=== PATIENT | male | born 1975 | race Caucasian/White ===

== ENCOUNTER → 2018-07-06 13:47 | Outpatient (CLI) | payer OTHER, MEDICAID, SELFPAY ==
--- NOTE | 2018-07-06 13:49 | DI.US.S_ITS ---
PROCEDURE: US ABDOMEN COMPLETE INDICATIONS: PAIN TECHNIQUE: Real-time scanning was performed of the abdominal and retroperitoneal organs, with image documentation. COMPARISON: [facility], US, ABDOMEN COMPLETE, 05/19/2007, 7:28. [facility], CT, ABDOMEN/PELVIS WITH CONTRAST, 05/19/2007, 10:44. FINDINGS: Liver: Liver is normal in size and homogeneous in echotexture. Gallbladder: There is a 1.6 mm nodule in the anterior wall of the gallbladder, probably a polyp. There are mobile echogenic foci in the dependent gallbladder lumen, probably gallbladder sludge or tiny stones. Biliary ducts: Intrahepatic bile ducts are non-dilated. Extrahepatic bile duct caliber measures 7.7 mm. Normal is 6-7 mm or less in diameter, or 10 mm or less post-cholecystectomy. Pancreas: Visualized portions of the pancreas are sonographically normal. Spleen: Spleen is normal in size and homogeneous in echotexture. A 1.0 x 1.3 x 1.4 cm splenule is noted. Kidneys: Kidneys are normal in size and echotexture. Right kidney measures 11.0 cm long; left kidney measures 10.6 cm long. No hydronephrosis or nephrolithiasis. No solid masses. Aorta: Visualized aorta is normal in caliber at less than 3 cm. Iliacs: Proximal common iliac arteries are normal in caliber at less than 2.5 cm. IVC: Intrahepatic inferior vena cava is patent. Miscellaneous: No free abdominal fluid. IMPRESSION: 1. A 1.6 mm polyp in the anterior wall of the gallbladder. 2. ? small stones or sludge in the gallbladder lumen. 3. A 1.0 x 1.3 x 1.0 cm splenule. Dictated by: Jef Mack M.D. on 07/06/2018 at 14:58 Approved by: Jef Mack M.D. on 07/06/2018 at 15:31
== END ==
PROVIDERS: Family Provider Family Medicine; PCP Family Medicine; Visit Provider Family Medicine
DX: R10.9 Unspecified abdominal pain (principal); K82.4 Cholesterolosis of gallbladder; D73.89 Other diseases of spleen
CPT/HCPCS: 76700

== ENCOUNTER 2018-08-03 10:40 | Day surgery (SDC) | payer OTHER, MEDICAID, SELFPAY ==
[2018-08-02 09:19] VITALS: BMI 23.7
[2018-08-03] VITALS (12 sets, daily range): BP systolic 115–150; BP diastolic 76–99; PULSE 52–69; RESP 7–28; TEMP 36.1–36.9; O2SAT 93–99; BMI 23.7
--- NOTE | 2018-08-03 | PATH_ITS ---
[facility] Accession Number: [id number] . 01 Material submitted: . GALLBLADDER . 02 Diagnosis: Gallbladder, Laparoscopic Cholecystectomy: Mild chronic cholecystitis and cholesterolosis. MRV/08/05/2018 . 02 Electronically signed: . Eloisa Elam MD, Pathologist NPI- [id number] . 01 Gross description: . Received in formalin, labeled gallbladder, is an intact gallbladder (length-6.7 cm, diameter-3.2 cm) with diaz-green smooth shiny serosa and a patent cystic duct. No lymph nodes are identified. The lumen contains dark green viscous bile. No calculi are present. The mucosa is dark green and velvety. The wall is up to 0.1 cm thick. No nodules, masses or lesions are identified. Section code: (A1) cystic duct resection margin and two serial sections from the body; (A2) two longitudinal sections from the fundus. ([id number]) /MRV . 02 Pathologist provided ICD-10: K81.1 . 02 CPT . 902334 Performed at: 01 [facility] [address] [facility], [place], [place] [id number] MD Emir Stephens MD Phone: [phone] Performed at: 02 [facility] [address] [place], [place] [id number] MD Dylan Bravo MD Phone: [phone]
[2018-08-03] MEDS: LACTATED RINGERS 1,000 ML 42 ML IV ×2 (11:54→15:32)
--- NOTE | 2018-08-03 12:51 | PM.PREOP ---
Pre-operative Note Interval Note Pre-op Check: Yes History & Physical Reviewed by Physician and Yes Exam Performed Changes: No H&P completed within 30 days and has changed as indicated here:: Patient seen and examined in preoperative area. History and physical examination documented on the chart from last week has not changed. Proceed with cholecystectomy today as planned.
[2018-08-03] MEDS: CEFAZOLIN 2 GM/100 ML FROZ.PIGGY IV (13:16)
[2018-08-03] MEDS: ACETAMINOPHEN IV 1,000 MG/100 ML VIAL 400 MG IV (13:50)
--- NOTE | 2018-08-03 13:53 | SUR.OPER ---
Supine on padded OR bed, head on pillow, right arm padded and tucked at side, left arm on armboard at less than 90 degrees,legs uncrossed, safety belt at thigh, tape over blanket over lower legs .
[2018-08-03] MEDS: BUPIVACAINE 0.5% (PF) VIAL 30 ML INJ (14:08)
[2018-08-03] MEDS: LIDOCAINE 1% W/EPI INJ 20 ML INJ (14:09)
--- NOTE | 2018-08-03 14:59 | PM.OP.1 ---
Operative Date/Time/Diagnoses Date of procedure: 08/03/18 Time of procedure: 14:59 Pre-op diagnosis: Biliary colic secondary to cholelithiasis Post-op diagnosis: same Procedure & Clinicians Procedure: Laparoscopic cholecystectomy Same procedure as scheduled: Yes Indications: 42-year-old male who presented with intractable epigastric and right upper quadrant abdominal pain radiating to the back. Examination and evaluation were consistent with biliary colic secondary to gallstones. He was recommended to undergo laparoscopic cholecystectomy. Surgeon: Mio Austin Click Yes if Unassisted: Yes Anesthesia Type: General Operative Notes Findings: 1. Chronically inflamed mildly thickened gallbladder 2. Grossly normal liver, stomach, colon, small bowel, and omentum within the context of limited laparoscopic visualization 3. No free fluid in the abdomen 4. Dense adhesions between the omentum, duodenum, and gallbladder consistent with prior abdominal operation 5. Adhesions in the right lower quadrant consistent with prior appendectomy 6. Otherwise normal peritoneal surfaces Closure Type: primary Specimen(s): other (Gallbladder) Implants & Drains: None Estimated Blood Loss (mL): 50 Blood products transfused: none Procedure in detail: After obtaining informed consent the patient was brought to the operating room placed supine on the table. After satisfactory induction of anesthesia the abdomen was prepped and draped in usual sterile fashion following insertion of a Hassan catheter into the urinary bladder. Hassan catheter was placed given the patient's significant right upper quadrant abdominal scar from prior surgery with distinct possibility of having to convert to open cholecystectomy and thereby prolonging operative time. SCOAP time out was performed per standard protocol. A 1: 1 mixture 1% lidocaine with 1 :100,000 epinephrine and 0.5% plain Marcaine was injected in the skin and subcutaneous tissue at the superior aspect of the umbilicus for postoperative analgesia. Vertical midline incision was created at superior aspect of umbilicus with 11 scalpel blade. Blunt dissection revealed the rectus fascia which was divided in the midline with 11 scalpel blade. Edges of the fascia were secured with Harinder clamps and elevated into the operative field. Fascia was secured with 2 individual interrupted 0 Vicryl sutures superiorly and inferiorly. Underlying peritoneum was secured between Lila clamps and entered under direct visualization. Blunt 12 mm Luke trocar was inserted and a carbon dioxide pneumoperitoneum was created. Abdomen was visually explored with a 30 degree 5 mm laparoscope. Findings are as above. Patient was placed in reverse Trendelenburg position. 5 mm epigastric trocar was inserted under direct laparoscopic visualization to the right of the falciform ligament after achieving local anesthesia and creating a skin incision with 11 scalpel blade. In a similar fashion to individual 5 mm trocars were placed in the right lateral abdomen. The fundus of the gallbladder was visible and secured with a ratcheted grasper then retracted medially and superiorly over the liver edge. Adhesions were found along the entire length of the gallbladder at this point involving the omentum and duodenum. Meticulous blunt dissection was employed to remove the adhesions. Monopolar cautery was used judiciously on several adhesions to both divide them and achieve hemostasis. Great care was taken to avoid injury to the duodenum and adjacent structures. Infundibulum of the gallbladder was eventually identified and secured with a 2nd grasper. Infundibulum was retracted inferiorly and laterally. Meticulous dissection in the triangle of Calot was then performed with the Maryland dissector eventually encircling the cystic duct and cystic artery. The junction of the duct and artery with the gallbladder was clearly identified. Critical view of the liver bed through the avascular plane between the cystic duct and cystic artery was identified. Three clips were placed proximally on the cystic duct and 1 at the junction with the gallbladder. The duct was divided with the scissors. In a similar fashion the cystic artery was controlled and divided. Monopolar cautery was used to remove the gallbladder from the hepatic bed. Specimen was placed in an endo-pouch and retrieved through the umbilical incision then sent for permanent section. Liver bed and right upper quadrant were irrigated with copious amounts of sterile saline solution and hemostasis was verified. There was no evidence of any hemorrhage or bile leak from the gallbladder fossa. The previously placed clips were again meticulously visualized and noted to be in good position without evidence of hemorrhage or bile leak. Patient was returned to supine position and right upper quadrant was again irrigated. Irrigant was suctioned from the abdomen and noted to be clear. Once hemostasis was verified instruments and trocars were removed under direct visualization. Hemostasis was again verified and carbon dioxide was evacuated. Fascia at the umbilical site was closed with the 2 previously placed 0 Vicryl suture. Skin at all 4 incisions was then closed in a running subcuticular fashion with 4 0 Monocryl suture. Dermal adhesive was applied to the skin. Hassan catheter was removed at the conclusion of the case. Anesthesia was reversed and the patient extubated in the operating room. He was taken recovery in stable condition. Complications: none Condition: stable Disposition: PACU Plan for aftercare: 1. Discharge to home 2. Follow up in surgery Clinic in 2 weeks
--- NOTE | 2018-08-03 15:09 | SUR.PHASEI ---
Lt anterior lobe clear, exp wheeze in rt anterior lobe, sounds coarse after cough.
--- NOTE | 2018-08-03 15:10 | SUR.PHASEI ---
Dr Austin notified bp 142/92, other vitals wnl, Pt denied pain, no new orders-continue to monitor per MD>
[2018-08-03] MEDS: HYDROMORPHONE 2 MG INJ 1 MG IV (15:21)
[2018-08-03] MEDS: LORazepam 2 MG/ML SYRINGE 0.25 MG IV (15:23)
--- NOTE | 2018-08-03 15:26 | SUR.PHASEI ---
PT RR increased to 40s, Pt began trembling. Reported abd pain. Dr Lynn present, medication ordered and given
[2018-08-03] MEDS: HYDROMORPHONE 2 MG INJ 0.5 MG IV (15:31)
[2018-08-03] MEDS: ONDANSETRON 4 MG/2 ML INJ IV (15:55)
--- NOTE | 2018-08-03 15:58 | SUR.PHASEII ---
Pt c/o mild nausea, crackers and zofran provided. Pt reported nausea improved. Report to ESTEFANI Mccain.
--- NOTE | 2018-08-03 16:11 | SUR.PHASEII ---
incisions c/d/i. friend to take prescriptions to pharmacy, vss, nausea subsided
== END 2018-08-03 16:31 | disposition home or self-care (01) ==
PROVIDERS: PCP Family Medicine; Visit Provider Surgery
PROC: 0FT44ZZ Resection of Gallbladder, Percutaneous Endoscopic Approach (ICD-10-PCS; CPT 47562; principal; 2018-08-03 12:45)
DX: K81.1 Chronic cholecystitis (principal); K82.8 Other specified diseases of gallbladder; K66.0 Peritoneal adhesions (postprocedural) (postinfection)
CPT/HCPCS: 47562; 88304; J0131; J0690; J1170; J2060; J2250; J2405; J2704; J3010

== ENCOUNTER 2018-08-11 23:56 | Inpatient (IN) | payer OTHER, MEDICAID, SELFPAY ==
[2018-08-12] VITALS (7 sets, daily range): BP systolic 121–157; BP diastolic 73–94; PULSE 65–73; RESP 15–28; TEMP 36.5–37.2; O2SAT 94–97; BMI 23.3
--- NOTE | 2018-08-12 | DI.NM.S_ITS ---
PROCEDURE: NM HIDA NO EJECTION FRACTION RADIOPHARMACEUTICAL: 4.5 mCi Tc-99m mebrofenin IV. INDICATIONS: hyperbilirubinemia, pain after cholecystectomy. R/O leak. TECHNIQUE: Following intravenous administration of Tc-99m mebrofenin, sequential anterior abdominal images were obtained through at least 60 minutes. COMPARISON: [facility], CT, CT ABDOMEN PELVIS WITH CONTRAST, 08/11/2018, 18:18. FINDINGS: There is normal tracer uptake and excretion by the liver. There is normal visualization of intrahepatic ducts, and the common bile duct, but there is sequestration of contrast at the gallbladder fossa in a fashion that indicates likelihood of contained extravasation of bile at that site. There is normal tracer excretion into duodenum and beyond into the small bowel more inferiorly. IMPRESSION: The prior CT from 08/11/18 had shown a small amount of perihepatic and subhepatic free fluid, and postsurgical clips at the gallbladder fossa margin. Fluid also was present within the gallbladder fossa itself, and no abscess formation was identified. The current study shows evidence of the contained bile leak, anatomically in the expected position of the gallbladder fossa. A communication from the bile duct area to the immediate adjacent gallbladder fossa area is not identified and this may indicate presence of an accessory bile duct leaking preferentially into the gallbladder fossa rather than a cystic duct stump leak. Please note that this is a resolution of anatomy that is relatively low utilizing nuclear medicine technique. Findings discussed with Dr. Oro. Dictated by: Manuel Reynolds M.D. on 08/13/2018 at 13:06 Approved by: Manuel Reynolds M.D. on 08/13/2018 at 13:11
[2018-08-12] MEDS: HYDROMORPHONE 2 MG INJ 1 MG IV ×2 (00:39→05:31)
[2018-08-12] MEDS: ONDANSETRON 4 MG/2 ML INJ IV ×3 (00:44→19:44)
[2018-08-12] MEDS: DEXTROSE 5%-0.45NS W/KCL 20MEQ 1,000 ML 75 MEQ IV (00:53)
[2018-08-12] MEDS: AMPICILLIN/SULBACTAM 3 GM 3 GM in SODIUM CHLORIDE 0.9% 100 ML IV ×5 (00:55→23:59)
--- NOTE | 2018-08-12 05:12 | PC.NURSE ---
Addendum entered by Jerri Crystal R.N. 08/12/18 05:54: 0545: pt reported pain 07/21, gave 1mg IV dilaudid for breakthrough pain. pt drinking plenty of water, urine dark brian. Original Note: 6525: pt is a direct admit from [facility], arrived via stretcher, A&Ox3, LS: clear, 94%RA, BTX4, lap sites x 4 LICENSED DIRECT ENTRY MIDWIFE, PP+, CMS+. pt was shaking due to pain and having some nausea, gave dilaudid 1mg and Zofran. call light in reach. oriented pt to room.
[2018-08-12] MEDS: HYDROMORPHONE PCA 6 MG/30 ML PCA.VIAL IV ×3 (06:49→21:44)
--- NOTE | 2018-08-12 08:18 | PM.HP.1 ---
History of Present Illness Date Patient Seen: 08/12/18 Time Patient Seen: 08:18 Chief complaint: trans from [facility] Narrative: 42-year-old male well known to me from recent evaluation and subsequent laparoscopic cholecystectomy 9 days ago electively who presents to an [facility] emergency department late last evening with complaints of progressive abdominal pain since noon yesterday. He states that after surgery he was feeling relatively well and tolerating a regular diet without any issues. He had return of normal bowel bladder function. Approximately 2 days after surgery he began to have normal regular bowel movements. He has moved his bowels recently including yesterday although he states that it was somewhat firm and hard. No melena, hematochezia, bright red blood per rectum. No fever or chills subjectively but he does feel as if he is having occasional sweats. He is passing flatus. Denies any jaundice, dark brown urine, or acholic stools. After lunch yesterday he began to have progressive abdominal pain diffusely but more toward the right lateral abdomen. Pain does not radiate to the back or the chest. Denies any productive cough or shortness of breath. No chest pain. However, he feels that he cannot take a full deep inspiration because of the discomfort. Because of the pain he began to have some nausea and subsequently vomited. He has not eaten anything significant since noon yesterday. He is not nauseated currently. However he continues to complain of the diffuse abdominal pain. He feels somewhat subjectively distended as well. Again, he is having no dysuria or hematuria. Patient History Medical History ADD (attention deficit disorder) (Acute) 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) Foot pain (Chronic 2013) Hemorrhoids (Chronic 2005) Chicken pox (Resolved 1982) Open fracture of right foot (Resolved 2013) Wound of right foot (Resolved 2013) Surgical History S/P laparoscopic cholecystectomy (Acute) History of laparotomy (Acute) Hx of appendectomy (Acute) Hx of hemorrhoidectomy (Acute) Anesthesia (Resolved) Status post appendectomy (Resolved 1989) Status post hemorrhoidectomy (Resolved 2005) Status post right foot surgery (Resolved 11/2013) Status post right foot surgery (Resolved 01/2014) Family & Social History Social History: household members significant other Prior Living Arrangements House Safety & Behavioral: Feels Safe in Current Yes Environment Been Physically Hurt or No Threatened By a Person Suicidal Ideation Description None Suicide Plan Description No Plan Tobacco & Substance use: Tobacco type smokeless tobacco Smoking Status Former smoker alcohol intake current Substance Use Type does not use Meds Home Medications Medication Instructions Recorded Confirmed Type oxycodone 10 mg tablet See Label Instructions PO .COMPLEX 06/28/18 08/12/18 Rx #180 tab dextroamphetamine-amphetamine ER 20 mg PO BID #60 cap 07/14/18 08/12/18 Rx 20 mg 24hr capsule,extend release docusate sodium [Colace] 100 mg PO BID #14 cap 08/03/18 08/12/18 Rx hydromorphone 2 mg PO Q4H PRN #30 tab 08/03/18 08/12/18 Rx ondansetron HCl [Zofran] 4 mg PO TID PRN 5 Days #20 tab 08/03/18 08/12/18 Rx sennosides [Senokot] 8.6 mg PO BEDTIME #10 tab 08/03/18 08/12/18 Rx Allergies Allergy/AdvReac Type Severity Reaction Status Date / Time No Known Drug Allergies Allergy Unverified 06/28/18 09:43 Review of Systems Review of Systems All systems reviewed & are unremarkable except as noted in HPI and below Exam Vital Signs (past 8 hours): - 08/12/18 00:35 08/12/18 02:03 08/12/18 05:49 Temperature 98.9 F 98.7 F Pulse Rate 70 66 Respiratory Rate 28 H 20 20 Blood Pressure 148/87 H 148/94 H Pulse Oximetry 94 97 08/12/18 08:00 Temperature 98.4 F Pulse Rate 67 Respiratory Rate 15 Blood Pressure 157/94 H Pulse Oximetry 95 Narrative Exam Narrative: Well-nourished well-developed male lying in bed in no acute distress. He appears mildly uncomfortable but he certainly is not writhing in pain. He is not tachypneic. Alert oriented x3 Sclera nonicteric Regular rate and rhythm. He has had no tachycardia since admission. Furthermore, he has had no documented fevers with a maximal temperature of 98.9?. Blood pressure is normal other than some mild diastolic hypertension likely related to pain. No crackles or wheezes Abdomen is soft and essentially nondistended. He is diffusely tender to palpation but certainly has no guarding or rebound. He is perhaps slightly more tender in the right lateral abdomen. His tenderness is difficult to ascertain because of his chronic pain syndrome for which he takes a significant amount of oxycodone on a daily basis. He informs me that he had been on his usual regimen of oxycodone as per my instructions and taking only 1 additional Dilaudid tablet every 24 hr for his surgical pain until the onset of his symptoms at noon yesterday. Incisions are all clean, dry, and intact without evidence of hernia, erythema, ecchymosis, hematoma, or seroma. Extremities show no clubbing or cyanosis Objective Labs Labs: Records from the [facility] emergency department are somewhat erratic and there is no note from the attending emergency department physician. I do not have all of the laboratory results but his liver function tests and lactate level or all completely normal. Total bilirubin is also unremarkable. I cannot find a lipase. Cannot find a urinalysis. CBC is not within the provided records, but I have been informed verbally that the white blood cell count was approximately [id number] scan of the abdomen and pelvis was done in the [facility] emergency department and I have personally reviewed those films with the staff radiologist today. There is evidence of atelectasis bilaterally and perhaps some infiltrate in the right lower lobe. No free air in the abdomen. Small amount of perihepatic fluid which would be consistent with postoperative changes. Surgical clips were in place. No extrahepatic or intrahepatic biliary dilatation. No free fluid elsewhere in the abdomen. No dilated loops of bowel. No significant bowel wall thickening although there are some inflammatory changes focally at the hepatic flexure of the colon which is likely reactive in nature adjacent to the surgical site. No intrahepatic lesions or abscesses. No lymphadenopathy. Pancreas is normal on CT. Assessment & Plan Plan: Assessment/Plan Narrative: 42-year-old male 9 days status post otherwise uncomplicated laparoscopic cholecystectomy with acute onset of pain and vomiting yesterday. The only potential etiology at this point would be right lower lobe pneumonia although he has had no productive cough. However he does have leukocytosis per report so we will maintain him on intravenous antibiotics in the form of Unasyn. Repeat his CBC, complete metabolic panel, lipase, and procalcitonin today. He may have a regular diet from my perspective because there appears to be absolutely no issues intra-abdominally and certainly no evidence of any postoperative complications such as bile duct leak, bile duct injury, hemorrhage, subhepatic abscess, pancreatitis, or bowel injury. We will start a proton pump inhibitor and assist bowel function since he appears to be mildly constipated since surgery. 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 Out of bed as tolerated. I believe his overall clinical picture somewhat complicated by his chronic pain syndrome as well. Treat his nausea as needed with Zofran and Reglan. I discussed all the above with the patient in detail. Orders were written.
--- NOTE | 2018-08-12 08:28 | P.HP_ITS ---
History of Present Illness Date Patient Seen: 08/12/18 Time Patient Seen: 08:18 Chief complaint: trans from [facility] Narrative: 42-year-old male well known to me from recent evaluation and subsequent laparoscopic cholecystectomy 9 days ago electively who presents to an [facility] emergency department late last evening with complaints of progressive abdominal pain since noon yesterday. He states that after surgery he was feeling relatively well and tolerating a regular diet without any issues. He had return of normal bowel bladder function. Approximately 2 days after surgery he began to have normal regular bowel movements. He has moved his bowels recently including yesterday although he states that it was somewhat firm and hard. No melena, hematochezia, bright red blood per rectum. No fever or chills subjectively but he does feel as if he is having occasional sweats. He is passing flatus. Denies any jaundice, dark brown urine, or acholic stools. After lunch yesterday he began to have progressive abdominal pain diffusely but more toward the right lateral abdomen. Pain does not radiate to the back or the chest. Denies any productive cough or shortness of breath. No chest pain. However, he feels that he cannot take a full deep inspiration because of the discomfort. Because of the pain he began to have some nausea and subsequently vomited. He has not eaten anything significant since noon yesterday. He is not nauseated currently. However he continues to complain of the diffuse abdominal pain. He feels somewhat subjectively distended as well. Again, he is having no dysuria or hematuria. Patient History Medical History ADD (attention deficit disorder) (Acute) 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) Foot pain (Chronic 2013) Hemorrhoids (Chronic 2005) Chicken pox (Resolved 1982) Open fracture of right foot (Resolved 2013) Wound of right foot (Resolved 2013) Surgical History S/P laparoscopic cholecystectomy (Acute) History of laparotomy (Acute) Hx of appendectomy (Acute) Hx of hemorrhoidectomy (Acute) Anesthesia (Resolved) Status post appendectomy (Resolved 1989) Status post hemorrhoidectomy (Resolved 2005) Status post right foot surgery (Resolved 11/2013) Status post right foot surgery (Resolved 01/2014) Family & Social History Social History: household members significant other Prior Living Arrangements House Safety & Behavioral: Feels Safe in Current Yes Environment Been Physically Hurt or No Threatened By a Person Suicidal Ideation Description None Suicide Plan Description No Plan Tobacco & Substance use: Tobacco type smokeless tobacco Smoking Status Former smoker alcohol intake current Substance Use Type does not use Meds Home Medications Medication Instructions Recorded Confirmed Type oxycodone 10 mg tablet See Label Instructions PO .COMPLEX 06/28/18 08/12/18 Rx #180 tab dextroamphetamine-amphetamine ER 20 mg PO BID #60 cap 07/14/18 08/12/18 Rx 20 mg 24hr capsule,extend release docusate sodium [Colace] 100 mg PO BID #14 cap 08/03/18 08/12/18 Rx hydromorphone 2 mg PO Q4H PRN #30 tab 08/03/18 08/12/18 Rx ondansetron HCl [Zofran] 4 mg PO TID PRN 5 Days #20 tab 08/03/18 08/12/18 Rx sennosides [Senokot] 8.6 mg PO BEDTIME #10 tab 08/03/18 08/12/18 Rx Allergies Allergy/AdvReac Type Severity Reaction Status Date / Time No Known Drug Allergies Allergy Unverified 06/28/18 09:43 Review of Systems Review of Systems All systems reviewed & are unremarkable except as noted in HPI and below Exam Vital Signs (past 8 hours): - 08/12/18 00:35 08/12/18 02:03 08/12/18 05:49 Temperature 98.9 F 98.7 F Pulse Rate 70 66 Respiratory Rate 28 H 20 20 Blood Pressure 148/87 H 148/94 H Pulse Oximetry 94 97 08/12/18 08:00 Temperature 98.4 F Pulse Rate 67 Respiratory Rate 15 Blood Pressure 157/94 H Pulse Oximetry 95 Narrative Exam Narrative: Well-nourished well-developed male lying in bed in no acute distress. He appears mildly uncomfortable but he certainly is not writhing in pain. He is not tachypneic. Alert oriented x3 Sclera nonicteric Regular rate and rhythm. He has had no tachycardia since admission. Furthermore, he has had no documented fevers with a maximal temperature of 98.9? . Blood pressure is normal other than some mild diastolic hypertension likely related to pain. No crackles or wheezes Abdomen is soft and essentially nondistended. He is diffusely tender to palpation but certainly has no guarding or rebound. He is perhaps slightly more tender in the right lateral abdomen. His tenderness is difficult to ascertain because of his chronic pain syndrome for which he takes a significant amount of oxycodone on a daily basis. He informs me that he had been on his usual regimen of oxycodone as per my instructions and taking only 1 additional Dilaudid tablet every 24 hr for his surgical pain until the onset of his symptoms at noon yesterday. Incisions are all clean, dry, and intact without evidence of hernia, erythema, ecchymosis, hematoma, or seroma. Extremities show no clubbing or cyanosis Objective Labs Labs: Records from the [facility] emergency department are somewhat erratic and there is no note from the attending emergency department physician. I do not have all of the laboratory results but his liver function tests and lactate level or all completely normal. Total bilirubin is also unremarkable. I cannot find a lipase. Cannot find a urinalysis. CBC is not within the provided records, but I have been informed verbally that the white blood cell count was approximately [id number] scan of the abdomen and pelvis was done in the [facility] emergency department and I have personally reviewed those films with the staff radiologist today. There is evidence of atelectasis bilaterally and perhaps some infiltrate in the right lower lobe. No free air in the abdomen. Small amount of perihepatic fluid which would be consistent with postoperative changes. Surgical clips were in place. No extrahepatic or intrahepatic biliary dilatation. No free fluid elsewhere in the abdomen. No dilated loops of bowel. No significant bowel wall thickening although there are some inflammatory changes focally at the hepatic flexure of the colon which is likely reactive in nature adjacent to the surgical site. No intrahepatic lesions or abscesses. No lymphadenopathy. Pancreas is normal on CT. Assessment & Plan Plan: Assessment/Plan Narrative: 42-year-old male 9 days status post otherwise uncomplicated laparoscopic cholecystectomy with acute onset of pain and vomiting yesterday. The only potential etiology at this point would be right lower lobe pneumonia although he has had no productive cough. However he does have leukocytosis per report so we will maintain him on intravenous antibiotics in the form of Unasyn. Repeat his CBC, complete metabolic panel, lipase, and procalcitonin today. He may have a regular diet from my perspective because there appears to be absolutely no issues intra-abdominally and certainly no evidence of any postoperative complications such as bile duct leak, bile duct injury, hemorrhage , subhepatic abscess, pancreatitis, or bowel injury. We will start a proton pump inhibitor and assist bowel function since he appears to be mildly constipated since surgery. 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 Out of bed as tolerated. I believe his overall clinical picture somewhat complicated by his chronic pain syndrome as well. Treat his nausea as needed with Zofran and Reglan. I discussed all the above with the patient in detail. Orders were written.
--- NOTE | 2018-08-12 10:11 | CM.DANOTE ---
DCP: Case received, EMR reviewed and met with patient. Introduced self and role. DCP template completed with information currently available. Patient is a 42 year old male who admitted yesterday evening to the care of the hospitalist team. PCP: Dr. Santos. [facility]: [facility] [employer]. Patient was admitted here from [facility]. Had been at this hospital recently, and Dr. Austin had performed gall bladder surgery. Patient was developing increased pain, and had run out of his narcotics and was brought here, since surgery was done here. Patient alert and oriented, significant other at bedside. Patient is independent, drives. Lives in [facility]. P: DCP to continue to follow. Patient should be able to return home when stable, and pain is under control. Luiza Franco RN/Boardinghouse Keeper
[2018-08-12] MEDS: MAGNESIUM HYDROXIDE 30 ML UDC PO (10:30)
[2018-08-12] MEDS: DOCUSATE 100 MG CAPSULE PO (10:30)
[2018-08-12] MEDS: LORazepam 1 MG TABLET 2 MG PO ×2 (10:30→19:49)
[2018-08-12] MEDS: PANTOPRAZOLE 40 MG TABLET PO (10:32)
[2018-08-12 14:28] LABS: Add Manual Diff / Slide Review NO; Basophils Percent Auto 1.4 % (0-2); Eosinophils Percent Auto 0.1 % (2-4); Hematocrit 43.6 % (41-53); Hemoglobin 14.6 g/dL (13.5-17.5); Lymphocytes Percent Auto 13.4 % (25-40); Mean Corpuscular HGB Conc 33.4 % (30-36); Mean Corpuscular Hemoglobin 29.5 PG (26-34); Mean Corpuscular Volume 88.2 fL (80-100); Monocytes Percent Auto 10.2 % (3-14); Neutrophils Absolute Auto 10200 /uL (3000-5900); Neutrophils Percent Auto 74.9 % (50-75); Platelet Count 258 X10^3/uL (150-400); Red Blood Cell Count 4.94 X10^6/uL (4.5-5.9); Red Cell Distribution Width 14.6 % (11.6-14.8); White Blood Cell Count 13.6 X10^3/uL (4.5-11.0)
[2018-08-12 14:44] LABS: Alanine Aminotransferase 78 IU/L (21-72); Albumin 4.3 g/dL (3.5-5.0); Albumin Globulin Ratio 1.5 (1.0-2.8); Alkaline Phosphatase 86 U/L (38-126); Aspartate Aminotransferase 24 IU/L (17-59); Bilirubin Total 2.1 mg/dL (0.2-1.3); Blood Urea Nitrogen 14 mg/dL (9-20); Carbon Dioxide 27 mmol/L (22-32); Chloride 101 mmol/L (98-107); Estimated Glomerular Filt Rate > 60.0 mL/min (>60); Globulin 2.9 g/dL (1.7-4.1); Glucose 112 mg/dL (70-100); HEMOLYSIS < 15 (0-50); Lipase 21 U/L (23-300); Potassium 4.2 mmol/L (3.4-5.1); Sodium 139 mmol/L (137-145); Total Protein 7.2 g/dL (6.3-8.2)
[2018-08-12 15:06] LABS: Procalcitonin 0.75 ng/mL (<0.5)
[2018-08-13] MEDS: METOCLOPRAMIDE 10 MG/2 ML INJ IV ×2 (00:04→11:23)
[2018-08-13 00:28] VITALS: BP 122/75; PULSE 73; RESP 16; TEMP 36.9; O2SAT 97
[2018-08-13] MEDS: HYDROMORPHONE PCA 6 MG/30 ML PCA.VIAL IV ×2 (05:28→13:03)
[2018-08-13] MEDS: PANTOPRAZOLE 40 MG TABLET PO (05:28)
[2018-08-13 05:56] VITALS: BP 164/82; PULSE 77; RESP 16; TEMP 36.7; O2SAT 96
[2018-08-13] MEDS: AMPICILLIN/SULBACTAM 3 GM 3 GM in SODIUM CHLORIDE 0.9% 100 ML IV ×2 (06:06→13:02)
[2018-08-13 06:07] LABS: Add Manual Diff / Slide Review NO; Basophils Percent Auto 0.3 % (0-2); Eosinophils Percent Auto 1.5 % (2-4); Lymphocytes Percent Auto 18.7 % (25-40); Mean Corpuscular HGB Conc 33.5 % (30-36); Mean Corpuscular Hemoglobin 29.7 PG (26-34); Mean Corpuscular Volume 88.9 fL (80-100); Monocytes Percent Auto 13.1 % (3-14); Neutrophils Absolute Auto 6600 /uL (3000-5900); Neutrophils Percent Auto 66.4 % (50-75); Platelet Count 270 X10^3/uL (150-400); Red Blood Cell Count 4.72 X10^6/uL (4.5-5.9); Red Cell Distribution Width 14.7 % (11.6-14.8)
[2018-08-13 06:17] LABS: Alanine Aminotransferase 300 IU/L (21-72); Albumin 4.1 g/dL (3.5-5.0); Albumin Globulin Ratio 1.4 (1.0-2.8); Alkaline Phosphatase 142 U/L (38-126); Aspartate Aminotransferase 273 IU/L (17-59); BUN Creatinine Ratio 13.3 (6-22); Bilirubin Total 3.4 mg/dL (0.2-1.3); Blood Urea Nitrogen 12 mg/dL (9-20); Calcium 8.9 mg/dL (8.4-10.2); Carbon Dioxide 30 mmol/L (22-32); Chloride 99 mmol/L (98-107); Estimated Glomerular Filt Rate > 60.0 mL/min (>60); Globulin 2.9 g/dL (1.7-4.1); Glucose 113 mg/dL (70-100); HEMOLYSIS < 15 (0-50); Potassium 4.6 mmol/L (3.4-5.1); Sodium 140 mmol/L (137-145)
--- NOTE | 2018-08-13 06:18 | PC.NURSE ---
Pt A&Ox4. 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 pt urinated 650cc-clear dark brian/orange color.
[2018-08-13 07:59] VITALS: BP 122/87; PULSE 70; RESP 18; TEMP 36.9; O2SAT 97
[2018-08-13] MEDS: LORazepam 1 MG TABLET 2 MG PO (08:49)
[2018-08-13] MEDS: DOCUSATE 100 MG CAPSULE PO (08:49)
[2018-08-13] MEDS: ONDANSETRON 4 MG/2 ML INJ IV ×3 (09:59→16:59)
[2018-08-13] MEDS: HYDROMORPHONE 2 MG INJ 1 MG IV (09:59)
[2018-08-13] MEDS: DEXTROSE 5%-0.45NS W/KCL 20MEQ 1,000 ML 75 MEQ IV (10:12)
[2018-08-13] MEDS: HYDROMORPHONE 1 MG INJ IV ×2 (11:59→16:56)
--- NOTE | 2018-08-13 11:59 | PC.NURSE ---
Addendum entered by Shira Davila R.N. 08/13/18 14:32: Pt last voided at 0600, denies need to void at this time, bladder scanned for 382cc. Original Note: Addendum entered by Shira Davila R.N. 08/13/18 13:10: Pt back from hida scan, still c/o nausea too early for antiemetic, call to Dr Preethi phelps. Orders received. Original Note: Pt taken down for HIda scan, received call from [facility], patient was having increase in pain. Given 1mg dilaudid IVP.
[2018-08-13 14:20] VITALS: BP 148/90; PULSE 69; RESP 18; TEMP 36.9; O2SAT 94
--- NOTE | 2018-08-13 14:23 | PM.PN.1 ---
Subjective Date Patient Seen: 08/13/18 Time Patient Seen: 14:24 Interval history: Noble is in significant pain this afternoon. HIDA scan has already been reviewed and shows a bile leak most likely from a duct of Luschka but it is difficult to tell with certainty. I have already discussed all of this with both the patient and his significant other. I spoke with at [facility] and he reports that there will not be ERCP services available at [facility] until Thursday. I called [facility] in [facility] and spoke with Dr.Natasha García. She kindly reviewed the films with the radiologist and has agreed to treat the patient if we can find an accepting physician at the hospital. The patient and his significant other both report that he is willing to be transferred there as soon as arrangements can be made. He says his pain is reasonably well controlled since I have increased his Dilaudid to 1 milligram/hour and increased his Zofran to Q 4 hr interval. He is encouraged that the problem looks to be treatable. Exam Vital Signs (past 8 hours): - 08/13/18 07:59 08/13/18 14:20 Temperature 98.5 F 98.4 F Pulse Rate 70 69 Respiratory Rate 18 18 Blood Pressure 122/87 148/90 H Pulse Oximetry 97 94 Oxygen Flow Rate 0 Narrative Exam Narrative: Lungs: Clear bilaterally Heart: Regular rate and rhythm Abdomen is soft but diffusely tender to palpation. Few bowel sounds. Voluntary guarding and rebound. Extremities no edema Objective Labs Result Diagrams: 08/13/18 05:29 08/13/18 05:29 Labs: Laboratory Results - last 24 hr 08/12/18 08/12/18 08/12/18 14:12 14:12 14:12 WBC 13.6 H RBC 4.94 Hgb 14.6 Hct 43.6 MCV 88.2 MCH 29.5 MCHC 33.4 RDW 14.6 Plt Count 258 Neut % (Auto) 74.9 Lymph % (Auto) 13.4 L [place] % (Auto) 10.2 Eos % (Auto) 0.1 L Baso % (Auto) 1.4 Neut # (Auto) 87224 H Sodium 139 Potassium 4.2 Chloride 101 Carbon Dioxide 27 BUN 14 Creatinine 0.70 Estimated GFR > 60.0 BUN/Creatinine Ratio 20.0 Glucose 112 H Calcium 9.0 Total Bilirubin 2.1 H AST 24 ALT 78 H Alkaline Phosphatase 86 Total Protein 7.2 Albumin 4.3 Globulin 2.9 Albumin/Globulin Ratio 1.5 Lipase 21 L Procalcitonin 0.75 H 08/13/18 08/13/18 05:29 05:29 WBC 10.0 RBC 4.72 Hgb 14.0 Hct 42.0 MCV 88.9 MCH 29.7 MCHC 33.5 RDW 14.7 Plt Count 270 Neut % (Auto) 66.4 Lymph % (Auto) 18.7 L [place] % (Auto) 13.1 Eos % (Auto) 1.5 L Baso % (Auto) 0.3 Neut # (Auto) 6600 H Sodium 140 Potassium 4.6 Chloride 99 Carbon Dioxide 30 BUN 12 Creatinine 0.90 Estimated GFR > 60.0 BUN/Creatinine Ratio 13.3 Glucose 113 H Calcium 8.9 Total Bilirubin 3.4 H AST 273 H ALT 300 H Alkaline Phosphatase 142 H D Total Protein 7.0 Albumin 4.1 Globulin 2.9 Albumin/Globulin Ratio 1.4 Lipase Procalcitonin Assessment & Plan Plan: Assessment/Plan Narrative: Pleasant gentleman with a bile leak after cholecystectomy. This is likely from a duct of Luschka. We hope to be transferring the patient to [facility] later this evening. Arrangements are in process now.
--- NOTE | 2018-08-13 14:28 | P.PN_ITS ---
Subjective Date Patient Seen: 08/13/18 Time Patient Seen: 14:24 Interval history: Noble is in significant pain this afternoon. HIDA scan has already been reviewed and shows a bile leak most likely from a duct of Luschka but it is difficult to tell with certainty. I have already discussed all of this with both the patient and his significant other. I spoke with at [facility] and he reports that there will not be ERCP services available at [facility] until Thursday. I called [facility] in [facility] and spoke with Dr.Natasha García. She kindly reviewed the films with the radiologist and has agreed to treat the patient if we can find an accepting physician at the hospital. The patient and his significant other both report that he is willing to be transferred there as soon as arrangements can be made. He says his pain is reasonably well controlled since I have increased his Dilaudid to 1 milligram/hour and increased his Zofran to Q 4 hr interval. He is encouraged that the problem looks to be treatable. Exam Vital Signs (past 8 hours): - 08/13/18 07:59 08/13/18 14:20 Temperature 98.5 F 98.4 F Pulse Rate 70 69 Respiratory Rate 18 18 Blood Pressure 122/87 148/90 H Pulse Oximetry 97 94 Oxygen Flow Rate 0 Narrative Exam Narrative: Lungs: Clear bilaterally Heart: Regular rate and rhythm Abdomen is soft but diffusely tender to palpation. Few bowel sounds. Voluntary guarding and rebound. Extremities no edema Objective Labs Result Diagrams: 08/13/18 05:29 08/13/18 05:29 Labs: Laboratory Results - last 24 hr 08/12/18 08/12/18 08/12/18 14:12 14:12 14:12 WBC 13.6 H RBC 4.94 Hgb 14.6 Hct 43.6 MCV 88.2 MCH 29.5 MCHC 33.4 RDW 14.6 Plt Count 258 Neut % (Auto) 74.9 Lymph % (Auto) 13.4 L [place] % (Auto) 10.2 Eos % (Auto) 0.1 L Baso % (Auto) 1.4 Neut # (Auto) 33822 H Sodium 139 Potassium 4.2 Chloride 101 Carbon Dioxide 27 BUN 14 Creatinine 0.70 Estimated GFR > 60.0 BUN/Creatinine Ratio 20.0 Glucose 112 H Calcium 9.0 Total Bilirubin 2.1 H AST 24 ALT 78 H Alkaline Phosphatase 86 Total Protein 7.2 Albumin 4.3 Globulin 2.9 Albumin/Globulin Ratio 1.5 Lipase 21 L Procalcitonin 0.75 H 08/13/18 08/13/18 05:29 05:29 WBC 10.0 RBC 4.72 Hgb 14.0 Hct 42.0 MCV 88.9 MCH 29.7 MCHC 33.5 RDW 14.7 Plt Count 270 Neut % (Auto) 66.4 Lymph % (Auto) 18.7 L [place] % (Auto) 13.1 Eos % (Auto) 1.5 L Baso % (Auto) 0.3 Neut # (Auto) 6600 H Sodium 140 Potassium 4.6 Chloride 99 Carbon Dioxide 30 BUN 12 Creatinine 0.90 Estimated GFR > 60.0 BUN/Creatinine Ratio 13.3 Glucose 113 H Calcium 8.9 Total Bilirubin 3.4 H AST 273 H ALT 300 H Alkaline Phosphatase 142 H D Total Protein 7.0 Albumin 4.1 Globulin 2.9 Albumin/Globulin Ratio 1.4 Lipase Procalcitonin Assessment & Plan Plan: Assessment/Plan Narrative: Pleasant gentleman with a bile leak after cholecystectomy. This is likely from a duct of Luschka. We hope to be transferring the patient to [facility] later this evening. Arrangements are in process now.
--- NOTE | 2018-08-13 14:46 | PM.DS.1 ---
History of Present Illness Date Patient Seen: 08/13/18 Time Patient Seen: 14:47 Chief complaint: trans from [facility] Narrative: 42-year-old gentleman who underwent a straightforward laparoscopic cholecystectomy 9 days ago. He presented to the [facility] Emergency room on the evening of August 11 with complaint of worsening abdominal pain. At that time he reported it started suddenly at noon prior to presenting to the emergency room. He was found to have a somewhat elevated white count there but an otherwise normal postoperative CT scan. He was subsequently transferred to our facility for continued management and evaluation. Discharge Providers Date of admission: 08/11/18 23:56 Primary care physician: Attila Santos MD Discharge provider: Neelam Oro MD Discharge Date: 08/13/18 Summary Discharge Diagnosis: Bile leak Hospital Course: Following admission to the hospital here, the patient was started on Unasyn for concern of intra-abdominal process and possible right lower lobe pneumonia. Our radiologists felt the patient studies did not support right lower lobe pneumonia and in fact, his physical exam was not impressive for these findings. He did, however, have significant abdominal pain. Dr. Austin admitted the patient and ordered a HIDA scan that was completed this afternoon. This scan shows a bile leak that Dr. Reynolds feels it is most likely coming from the bed of the gallbladder as opposed to the common duct or the cystic duct stump. I have spoken with Dr. Nuha García as well as Dr. Mal Brunson at [facility] in billing him and they have kindly agreed to accept the patient in transfer and evaluate and treat him as needed. Usual treatment for this process involves ERCP. I have discussed all of the above with the patient. He and his significant other both expressed a willingness to go to [facility] in billing him. Status at Discharge Cognitive/behavioral status at discharge: Normal Functional status at discharge: wheelchair bound Overall status at discharge: patient is not back to baseline Time Spent with Patient Less than 30 minutes Exam Vital Signs (past 8 hours): - 08/13/18 07:59 08/13/18 14:20 Temperature 98.5 F 98.4 F Pulse Rate 70 69 Respiratory Rate 18 18 Blood Pressure 122/87 148/90 H Pulse Oximetry 97 94 Oxygen Flow Rate 0 Objective Labs Result Diagrams: 08/13/18 05:29 11/02/18 05:29 Labs: Laboratory Results - last 24 hr 08/12/1818 08/13/18 14:12 05:29 05:29 WBC 10.0 RBC 4.72 Hgb 14.0 Hct 42.0 MCV 88.9 MCH 29.7 MCHC 33.5 RDW 14.7 Plt Count 270 Neut % (Auto) 66.4 Lymph % (Auto) 18.7 L [place] % (Auto) 13.1 Eos % (Auto) 1.5 L Baso % (Auto) 0.3 Neut # (Auto) 6600 H Sodium 140 Potassium 4.6 Chloride 99 Carbon Dioxide 30 BUN 12 Creatinine 0.90 Estimated GFR > 60.0 BUN/Creatinine Ratio 13.3 Glucose 113 H Calcium 8.9 Total Bilirubin 3.4 H AST 273 H ALT 300 H Alkaline Phosphatase 142 H D Total Protein 7.0 Albumin 4.1 Globulin 2.9 Albumin/Globulin Ratio 1.4 Procalcitonin 0.75 H Discharge Plan Discharge Plan Patient Disposition: [facility] Transfer to: [facility] Under care of provider: Dr. Mal Brunson Discharge Med Rec/Prescriptions Prescriptions: No Action dextroamphetamine-amphetamine [Adderall XR] 20 mg capsule,extended release 24hr 20 mg PO BID Qty: 60 RF: 0 oxycodone 10 mg tablet See Label Instructions PO .COMPLEX Qty: 180 RF: 0 sennosides [Senokot] 8.6 mg tablet 8.6 mg PO BEDTIME Qty: 10 RF: 1 docusate sodium [Colace] 100 mg capsule 100 mg PO BID Qty: 14 RF: 1 hydromorphone 2 mg tablet 2 mg PO Q4H PRN (Reason: pain) Qty: 30 RF: 0 Follow up/Referrals: Mio Austin MD [Physician] - 1 Week Discharge Orders: Discharge (Order); Ordered 08/13/18 Ordered By: Neelam Oro Discharge Health Status Brief summary of current health status: Bile leak following Lap Jasmine. Hemodynamically stable with normal WBCs Multidrug resistant organism: No MDRO MDRO Verified by culture: No Precautions: [place] Provider Discharge Instructions Diet: Nothing by Mouth Activity: As desired. Lifting restriction of 10 pounds Skin/Wound/Dressing Care Report to your healthcare provider any signs of infection, such as:: chills, fever, night sweats, increased pain and unusual drainage Discharge Data Primary Care Provider: Attila Santos Attending Provider: Neelam Oro Admit Date/Time: 08/11/18 23:56
--- NOTE | 2018-08-13 14:50 | P.DS_ITS ---
History of Present Illness Date Patient Seen: 08/13/18 Time Patient Seen: 14:47 Chief complaint: trans from [facility] Narrative: 42-year-old gentleman who underwent a straightforward laparoscopic cholecystectomy 9 days ago. He presented to the Emergency room on the evening of August 11 with complaint of worsening abdominal pain. At that time he reported it started suddenly at noon prior to presenting to the emergency room. He was found to have a somewhat elevated white count there but an otherwise normal postoperative CT scan. He was subsequently transferred to our facility for continued management and evaluation. Discharge Providers Date of admission: 08/11/18 23:56 Primary care physician: Attila Santos MD Discharge provider: Neelam Oro MD Discharge Date: 08/13/18 Summary Discharge Diagnosis: Bile leak Hospital Course: Following admission to the hospital here, the patient was started on Unasyn for concern of intra-abdominal process and possible right lower lobe pneumonia. Our radiologists felt the patient studies did not support right lower lobe pneumonia and in fact, his physical exam was not impressive for these findings. He did, however, have significant abdominal pain. Dr. Austin admitted the patient and ordered a HIDA scan that was completed this afternoon. This scan shows a bile leak that Dr. Reynolds feels it is most likely coming from the bed of the gallbladder as opposed to the common duct or the cystic duct stump. I have spoken with Dr. Nuha García as well as Dr. Mal Brunson at [facility] in billing him and they have kindly agreed to accept the patient in transfer and evaluate and treat him as needed. Usual treatment for this process involves ERCP. I have discussed all of the above with the patient. He and his significant other both expressed a willingness to go to [facility] in billing him. Status at Discharge Cognitive/behavioral status at discharge: Normal Functional status at discharge: wheelchair bound Overall status at discharge: patient is not back to baseline Time Spent with Patient Less than 30 minutes Exam Vital Signs (past 8 hours): - 08/13/18 07:59 08/13/18 14:20 Temperature 98.5 F 98.4 F Pulse Rate 70 69 Respiratory Rate 18 18 Blood Pressure 122/87 148/90 H Pulse Oximetry 97 94 Oxygen Flow Rate 0 Objective Labs Result Diagrams: 08/13/18 05:29 11/02/18 05:29 Labs: Laboratory Results - last 24 hr 08/12/1818 08/13/18 14:12 05:29 05:29 WBC 10.0 RBC 4.72 Hgb 14.0 Hct 42.0 MCV 88.9 MCH 29.7 MCHC 33.5 RDW 14.7 Plt Count 270 Neut % (Auto) 66.4 Lymph % (Auto) 18.7 L [place] % (Auto) 13.1 Eos % (Auto) 1.5 L Baso % (Auto) 0.3 Neut # (Auto) 6600 H Sodium 140 Potassium 4.6 Chloride 99 Carbon Dioxide 30 BUN 12 Creatinine 0.90 Estimated GFR > 60.0 BUN/Creatinine Ratio 13.3 Glucose 113 H Calcium 8.9 Total Bilirubin 3.4 H AST 273 H ALT 300 H Alkaline Phosphatase 142 H D Total Protein 7.0 Albumin 4.1 Globulin 2.9 Albumin/Globulin Ratio 1.4 Procalcitonin 0.75 H Discharge Plan Discharge Plan [facility] Transfer to: [facility] Under care of provider: Dr. Mal Brunson Discharge Med Rec/Prescriptions Prescriptions: No Action dextroamphetamine-amphetamine [Adderall XR] 20 mg capsule,extended release 24hr 20 mg PO BID Qty: 60 RF: 0 oxycodone 10 mg tablet See Label Instructions PO .COMPLEX Qty: 180 RF: 0 sennosides [Senokot] 8.6 mg tablet 8.6 mg PO BEDTIME Qty: 10 RF: 1 docusate sodium [Colace] 100 mg capsule 100 mg PO BID Qty: 14 RF: 1 hydromorphone 2 mg tablet 2 mg PO Q4H PRN (Reason: pain) Qty: 30 RF: 0 Follow up/Referrals: Mio Austin MD [Physician] - 1 Week Discharge Orders: Discharge (Order); Ordered 08/13/18 Ordered By: Neelam Oro Discharge Health Status Brief summary of current health status: Bile leak following Lap Jasmine. Hemodynamically stable with normal WBCs Multidrug resistant organism: No MDRO MDRO Verified by culture: No Precautions: [place] Provider Discharge Instructions Diet: Nothing by Mouth Activity: As desired. Lifting restriction of 10 pounds Skin/Wound/Dressing Care Report to your healthcare provider any signs of infection, such as:: chills, fever, night sweats, increased pain and unusual drainage Discharge Data Primary Care Provider: Attila Santos Attending Provider: Neelam Oro Admit Date/Time: 08/11/18 23:56
[2018-08-13 15:46] VITALS: BP 135/81; PULSE 70; RESP 16; TEMP 37; O2SAT 91
== END 2018-08-13 17:00 | disposition short-term general hospital (02) | DRG 252 ==
PROVIDERS: Surgery; Admitting Provider Surgery; PCP Family Medicine; Visit Provider Surgery
DX: K91.89 Other postprocedural complications and disorders of digestive system (principal); F98.8 Other specified behavioral and emotional disorders with onset usually occurring in childhood and adolescence; G89.29 Other chronic pain; Y83.6 Removal of other organ (partial) (total) as the cause of abnormal reaction of the patient, or of later complication, without mention of misadventure at the time of the procedure; Z87.891 Personal history of nicotine dependence; F11.20 Opioid dependence, uncomplicated
CPT/HCPCS: 36415; 78226; 80053; 83690; 84145; 85025; 99223; 99238; A9537; G0379; J0295; J1170; J2405; J2765

== ENCOUNTER → 2018-08-16 10:52 | Outpatient (CLI) | payer OTHER, MEDICAID, SELFPAY ==
[2018-08-12 01:18] VITALS: BMI 23.3
[2018-08-16 11:55] LABS: Add Manual Diff / Slide Review NO; Basophils Percent Auto 0.6 % (0-2); Eosinophils Percent Auto 1.7 % (2-4); Hematocrit 42.8 % (41-53); Hemoglobin 14.5 g/dL (13.5-17.5); Lymphocytes Percent Auto 10.3 % (25-40); Mean Corpuscular HGB Conc 33.9 % (30-36); Mean Corpuscular Hemoglobin 29.9 PG (26-34); Mean Corpuscular Volume 88.2 fL (80-100); Monocytes Percent Auto 4.7 % (3-14); Neutrophils Absolute Auto 9200 /uL (3000-5900); Neutrophils Percent Auto 82.7 % (50-75); Platelet Count 430 X10^3/uL (150-400); Red Blood Cell Count 4.85 X10^6/uL (4.5-5.9); Red Cell Distribution Width 14.1 % (11.6-14.8); White Blood Cell Count 11.1 X10^3/uL (4.5-11.0)
[2018-08-16 12:15] LABS: Alanine Aminotransferase 226 IU/L (21-72); Albumin 4.4 g/dL (3.5-5.0); Albumin Globulin Ratio 1.3 (1.0-2.8); Alkaline Phosphatase 203 U/L (38-126); Aspartate Aminotransferase 46 IU/L (17-59); BUN Creatinine Ratio 13.8 (6-22); Blood Urea Nitrogen 11 mg/dL (9-20); Calcium 9.8 mg/dL (8.4-10.2); Carbon Dioxide 27 mmol/L (22-32); Chloride 102 mmol/L (98-107); Estimated Glomerular Filt Rate > 60.0 mL/min (>60); Globulin 3.3 g/dL (1.7-4.1); Glucose 120 mg/dL (70-100); HEMOLYSIS < 15 (0-50); Lipase 51 U/L (23-300); Potassium 4.2 mmol/L (3.4-5.1); Sodium 143 mmol/L (137-145); Total Protein 7.7 g/dL (6.3-8.2)
== END ==
PROVIDERS: PCP Family Medicine; Visit Provider Surgery
DX: K83.8 Other specified diseases of biliary tract (principal); K91.89 Other postprocedural complications and disorders of digestive system
CPT/HCPCS: 36415; 80053; 83690; 85025

== ENCOUNTER 2018-08-19 13:34 | Inpatient (IN) | payer OTHER, MEDICAID, SELFPAY ==
[2018-08-12 01:18] VITALS: BMI 23.3
[2018-08-19] VITALS (17 sets, daily range): BP systolic 109–124; BP diastolic 56–81; PULSE 67–99; RESP 12–28; TEMP 36.7–38.7; O2SAT 95–97; BMI 22.8
--- NOTE | 2018-08-19 | DI.CT.S_ITS ---
PROCEDURE: CT ABDOMEN PELVIS W CON INDICATIONS: abdominal pain TECHNIQUE: After the administration of oral and intravenous contrast, 5 mm thick sections acquired from the diaphragms to the symphysis. 5 mm thick coronal and sagittal reformats were performed. For radiation dose reduction, the following was used: automated exposure control, adjustment of mA and/or kV according to patient size. COMPARISON: [facility], CT, CT ABDOMEN PELVIS WITH CONTRAST, 08/11/2018, 18:18. FINDINGS: Image quality: Diagnostic. ABDOMEN: Lung bases: Mild atelectasis is identified within the bilateral lung bases (right greater than left). No pleural effusions are identified. Heart size is normal. Solid organs: Postoperative changes of the liver are again evident related to a cholecystectomy. Intrahepatic biliary dilatation is identified. A stent within the common bile duct and the main pancreatic duct is evident. However, prominence of these ducts remains present. The distal common bile duct near the head of the pancreas measures up to approximately 6 mm, previously measuring up to approximately 10 mm. The main pancreatic duct measures up to approximately 4 mm, unchanged within the region of the head of the pancreas. The common bile duct is slightly more prominent in size through the body and tail of the pancreas compared to the prior examination. The portal vein is patent. The hepatic veins are also patent. There is an enlarging fluid collection identified within the expected region of the gallbladder fossa, which is positioned within the medial segment of the left hepatic lobe, measuring up to approximately 4.9 x 4.0 x 5.5 cm which has increased in the interim, previously measuring up to approximately 2.9 x 3.3 x 1.9 cm. Heterogeneous enhancement within the liver adjacent to this fluid collection is present. There also is moderate edema identified within the mesentery the liver is otherwise unremarkable. Slight heterogeneity of the body and head of the pancreas is evident, demonstrating slight decreased attenuation. No definite surrounding inflammation is evident. The pancreas is otherwise unremarkable. The spleen, adrenals, and kidneys are unchanged. Renal cysts are noted. There is no hydronephrosis. Peritoneum and bowel: There is a small hiatal hernia. The stomach is otherwise unremarkable. The duodenum and small bowel loops are nondilated. A moderate to large amount of residual stool is seen throughout the colon, more prominent involving the ascending colon. Small amount of free fluid is seen within the right upper quadrant. No loculated fluid collections within the peritoneal cavity are evident. There is no free air. Nodes and vessels: Multiple enlarged lymph nodes within the portacaval region are identified. There also are borderline prominent retroperitoneal lymph nodes. No enlarged mesenteric lymph nodes are evident. Aorta and inferior vena cava are normal in caliber. Bones: No fractures or suspicious osseous lesions are evident. Straightening of the normal lumbar lordosis is present. There are mild degenerative changes of the lumbar spine. PELVIS: Genitourinary: Bladder wall thickness is normal. The prostate is enlarged, but contains coarse calcifications. Miscellaneous: No inguinal hernias or adenopathy. Small amount of free fluid is seen within the pelvis. There are no loculated fluid collections. No free air is evident. Bones: No suspicious bony lesions. No acute pelvic fractures are identified. There may be early degenerative changes of the bilateral hips. There are mild degenerative changes of the sacroiliac joints. IMPRESSION: 1. Enlarging loculated intrahepatic fluid collection is suggestive of a biloma. Superimposed abscess/infection cannot be completely excluded. Nuclear medicine hepatobiliary scan would be helpful for better characterization. 2. Interval placement of a stent within the common bile duct and main pancreatic duct. The common bile duct has decreased in size. The main pancreatic duct within the region of the body and tail of the pancreas may be slightly larger on the current exam. Correlation with pancreatic enzymes is recommended. 3. Edema within the mesentery adjacent to the inferior margin of the liver is likely reactive. A superimposed infectious process is difficult to exclude. 4. Minimal ascites is likely reactive. No intraperitoneal loculated fluid collections or abscesses. 5. Colonic constipation. No bowel obstruction. 6. Reactive portacaval lymph nodes. 7. Mild bibasilar atelectasis. Dictated by: Kevin Lakhani M.D. on 08/19/2018 at 15:11 Approved by: Kevin Lakhani M.D. on 08/19/2018 at 15:23
[2018-08-19 14:24] LABS: Hematocrit 45.3 % (41-53); Hemoglobin 15.5 g/dL (13.5-17.5); Mean Corpuscular HGB Conc 34.1 % (30-36); Mean Corpuscular Hemoglobin 29.9 PG (26-34); Mean Corpuscular Volume 87.5 fL (80-100); Platelet Count 473 X10^3/uL (150-400); Red Blood Cell Count 5.18 X10^6/uL (4.5-5.9); Red Cell Distribution Width 14.2 % (11.6-14.8); White Blood Cell Count 26.7 X10^3/uL (4.5-11.0)
[2018-08-19 14:26] LABS: Add Manual Diff / Slide Review YES
[2018-08-19 14:30] LABS: Alanine Aminotransferase 106 IU/L (21-72); Albumin 4.6 g/dL (3.5-5.0); Albumin Globulin Ratio 1.4 (1.0-2.8); Alkaline Phosphatase 153 U/L (38-126); Aspartate Aminotransferase 33 IU/L (17-59); BUN Creatinine Ratio 12.5 (6-22); Bilirubin Total 1.7 mg/dL (0.2-1.3); Bilirubin Unconjugated 1.4 mg/dL (0.0-1.1); Blood Urea Nitrogen 10 mg/dL (9-20); Calcium 9.7 mg/dL (8.4-10.2); Carbon Dioxide 24 mmol/L (22-32); Chloride 98 mmol/L (98-107); Estimated Glomerular Filt Rate > 60.0 mL/min (>60); Globulin 3.2 g/dL (1.7-4.1); Glucose 113 mg/dL (70-100); HEMOLYSIS < 15 (0-50); Sodium 137 mmol/L (137-145); Total Protein 7.8 g/dL (6.3-8.2)
[2018-08-19] MEDS: SODIUM CHLORIDE 0.9% 1,000 ML 100 ML IV ×2 (14:58→20:23)
[2018-08-19 15:05] LABS: Total Cells Counted 100
[2018-08-19 15:06] LABS: Neutrophils Absolute Manual 24297 /uL (3000-5900)
[2018-08-19 15:08] LABS: RBC Morphology Normal Morphology
[2018-08-19] MEDS: MORPHINE 5 MG/ML INJ 4 MG IV (16:04)
--- NOTE | 2018-08-19 17:28 | PM.HP.1 ---
History of Present Illness Date Patient Seen: 08/19/18 Chief complaint: SENT BY Narrative: 42-year-old male status post laparoscopic cholecystectomy performed by Dr. Austin on 08/03/2018, with complication of postoperative bile leak requiring readmission 9 days later and subsequent transfer to a outside facility for ERCP and stent placement at an outside facility last week. Patient patient called the surgical clinic this morning and spoke to Dr. Oro, complaining of worsening abdominal pain and chills. She recommended patient immediately report to the emergency room for further evaluation. Patient arrived later today and was evaluated emergency department. He also voiced his concerns for chills and increasing abdominal pain mostly in the right upper quadrant of the abdomen. He said the pain became worse after he felt a popping sensation in his abdomen. He has no appetite but is able to tolerate liquids and is thirsty. He also feels slightly bloated. Denies any nausea or vomiting. Patient History Medical History ADD (attention deficit disorder) (Acute) 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) Foot pain (Chronic 2013) Hemorrhoids (Chronic 2005) Chicken pox (Resolved 1982) Open fracture of right foot (Resolved 2013) Wound of right foot (Resolved 2013) Surgical History History of laparotomy (Acute) Hx of appendectomy (Acute) Hx of hemorrhoidectomy (Acute) S/P laparoscopic cholecystectomy (Acute) Anesthesia (Resolved) Status post appendectomy (Resolved 1989) Status post hemorrhoidectomy (Resolved 2005) Status post right foot surgery (Resolved 11/2013) Status post right foot surgery (Resolved 01/2014) Family & Social History Family History: Reviewed 08/19/18 by Osman Paris MD Social History: household members significant other Tobacco & Substance use: Tobacco type smokeless tobacco Smoking Status Former smoker alcohol intake current Substance Use Type does not use Meds Home Medications Medication Instructions Recorded Confirmed Type docusate sodium [Colace] 100 mg PO BID #14 cap 08/03/18 08/19/18 Rx hydromorphone 2 mg PO Q4H PRN #30 tab 08/03/18 08/19/18 Rx sennosides [Senokot] 8.6 mg PO BEDTIME #10 tab 08/03/18 08/19/18 Rx dextroamphetamine-amphetamine ER 20 mg PO BID #60 cap 08/16/18 08/19/18 Rx 20 mg 24hr capsule,extend release lorazepam 1 mg tablet 1 mg PO BID-TID PRN #14 tab 08/16/18 08/19/18 Rx oxycodone 5 mg tablet 10 mg PO Q4-6H PRN #40 tab 08/16/18 08/19/18 Rx ciprofloxacin HCl 500 mg PO BID 08/19/18 08/19/18 History metronidazole 500 mg PO TID 08/19/18 08/19/18 History oxycodone 10 - 20 mg PO Q6H PRN MDD 6 08/19/18 08/19/18 History Allergies Allergy/AdvReac Type Severity Reaction Status Date / Time No Known Drug Allergies Allergy Verified 08/19/18 13:52 Review of Systems Review of Systems All systems reviewed & are unremarkable except as noted in HPI and below Exam Vital Signs (past 8 hours): - 08/19/18 13:37 08/19/18 14:24 08/19/18 15:51 Temperature 98.0 F Pulse Rate 99 H 85 89 Respiratory Rate 28 H 13 17 Blood Pressure 122/79 Blood Pressure [Right Arm] 124/76 115/73 Pulse Oximetry 97 95 96 08/19/18 17:06 Temperature Pulse Rate 77 Respiratory Rate 14 Blood Pressure Blood Pressure [Right Arm] 124/81 Pulse Oximetry 97 Oxygen Delivery Method Room Air Const General: cooperative, anxious and ill appearing [facility] Head: normal to inspection Neck Neck: supple Chest Chest: normal inspection of the chest Resp Effort & Inspection: normal respiratory effort Cardio Rate: regular rate Rhythm: regular rhythm GI Inspection: scar (well healed surgical scars) Palpation: soft (not distended.) and tender (focally at right upper quadrant, less in other quadrants.) Neuro General: alert, awake and moves all extremities Psych Mood: anxious mood Affect: anxious affect Attitude: cooperative Thought Process: normal Thought Content: normal Judgment: judgment good Objective Labs Result Diagrams: 08/19/18 14:00 08/19/18 14:00 Labs: Laboratory Results - last 24 hr 08/19/18 08/19/18 14:00 14:00 WBC 26.7 H RBC 5.18 Hgb 15.5 Hct 45.3 MCV 87.5 MCH 29.9 MCHC 34.1 RDW 14.2 Plt Count 473 H Neut % (Auto) Not Reportable Lymph % (Auto) Not Reportable [place] % (Auto) Not Reportable Eos % (Auto) Not Reportable Baso % (Auto) Not Reportable Total Counted 100 Seg Neutrophils % 82.0 H Band Neutrophils % 9.0 H Lymphocytes % (Manual) 2.0 L Monocytes % (Manual) 7.0 Neutrophils # (Manual) 48812 H RBC Morphology Normal morphology Sodium 137 Potassium 4.0 Chloride 98 Carbon Dioxide 24 BUN 10 Creatinine 0.80 Estimated GFR > 60.0 BUN/Creatinine Ratio 12.5 Glucose 113 H Calcium 9.7 Total Bilirubin 1.7 H Conjugated Bilirubin 0.0 Unconjugated Bilirubin 1.4 H AST 33 ALT 106 H Alkaline Phosphatase 153 H Total Protein 7.8 Albumin 4.6 Globulin 3.2 Albumin/Globulin Ratio 1.4 Assessment & Plan Plan: Assessment/Plan Narrative: CT scan abdomen pelvis demonstrates a fluid collection in the gallbladder fossa most likely consistent with a biloma and possible superimposed infection. Considering the patient's elevated white blood cell count and increasing discomfort, there is high concern for infective component. Patient is to be admitted, started on broad-spectrum IV antibiotics with anticipated image guided drainage and drain placement to this identified fluid collection.. Discussed case with radiologist who feels more comfortable that image guided drainage and drain placement be best performed tomorrow morning when there is more adequate staff, and due to his lack of comfort in getting access to this fluid collection which may require a transhepatic approach. Discussed treatment plan and diagnosis to the patient and patient's girlfriend who are both in agreement. All questions answered to their satisfaction.
[2018-08-19] MEDS: PIPERACILLIN-TAZO 3.375 GM/50 ML FROZ.PIGGY IV (17:35)
[2018-08-19] MEDS: MORPHINE 4 MG/ML INJ IV (17:40)
[2018-08-19 18:26] LABS: INR 1.6 (0.9-1.3); Prothrombin Time 17.9 SECONDS (10.1-12.7)
[2018-08-19 18:28] LABS: PTT Partial Thromboplastin Tim 38 SECONDS (26.4-36.2)
[2018-08-19] MEDS: ACETAMINOPHEN 325 MG TABLET 650 MG PO (19:14)
--- NOTE | 2018-08-19 19:14 | PC.NURSE ---
Per Dr. Paris, clinical impression of intrabdominal abscess placed in Medical Record.
[2018-08-19 19:51] LABS: Lipase 1595 U/L (23-300)
[2018-08-19] MEDS: OXYCODONE/ACETAMINOPHEN 5/325 TABLET 2 TAB PO (20:19)
[2018-08-19] MEDS: DOCUSATE 100 MG CAPSULE PO (20:20)
[2018-08-19] MEDS: LORazepam 1 MG TABLET PO (20:20)
--- NOTE | 2018-08-19 21:59 | PC.NURSE ---
Patient oriented and alert x4, 97% on RA, states pain is 7/10 during initial assessment. Rates his pain now at 5/10 after being administered percocet as ordered. Temp was 101.7 during initial assessment, is now 99.0 at 2200. Patient coagulation labs are slightly elevated, MD aware, administering FFP as ordered per Dr. Paris; to recheck coagulation labs after 2 units have been administered. Heart, lung, and bowel tones are wnl. CMS intact, patient denies tingling or numbness. During first 15 minutes of administering first unit of FFP, patient presented with no itchiness, SOB, dizziness, disorientation, or increase in temperature. VSS. Will continue to monitor. Patient voided in ED, has not voided since he's been up to floor at 1900. Verbalizes understanding to call once he does void in urinal so that we can collect a specimen for analysis. Patient resting in bed at this time, call light in reach, BA active.
[2018-08-20] VITALS (35 sets, daily range): BP systolic 101–147; BP diastolic 56–91; PULSE 71–88; RESP 14–24; TEMP 36.8–38.5; O2SAT 95–100
--- NOTE | 2018-08-20 | DI.CT.S_ITS ---
PROCEDURE: CT GUIDED CATHETER PLACEMENT COMPARISON: [facility], CT, CT ABDOMEN PELVIS W JERI, 08/19/2018, 15:49. INDICATIONS: intra-abdominal abscess, status post cholecystectomy PROCEDURE: PAR conference was performed and the patient's questions were answered. The patient decided to proceed and informed written and verbal consent to proceed was obtained. The patient was placed on the CT table in the supine position. Initial images were obtained and a suitable skin entry site was selected. Area was prepped and draped in usual sterile fashion. Local anesthesia was placed using 1% lidocaine. A small incision was made at the skin entry site, and under CT guidance 18 gauge Chiba needle was advanced such that the tip was positioned within the fluid collection. Then, coaxial placement of guidewire was performed and the needle was removed. The tract was dilated, and 8.5 [place] pigtail drainage catheter was subsequently placed. Appropriate location was confirmed with additional CT images. Approximate 70 cc of greenish, complex fluid with internal debris was obtained and sent for laboratory analysis as ordered. All needles were removed. Patient tolerated the procedure well without immediate complication. Approximately 15 minutes of conscious sedation, please see nursing record. The patient received 100 mg IV fentanyl, and 1 mg IV Versed during the procedure. FINDINGS: Pigtail catheter seen with the tip in the right upper quadrant fluid collection IMPRESSION: Technically successful CT-guided placement of right upper quadrant pigtail drainage catheter as detailed above. Dictated by: Tin Ponce M.D. on 08/20/2018 at 13:05 Approved by: Tin Ponce M.D. on 08/20/2018 at 13:15
[2018-08-20] MEDS: MORPHINE 4 MG/ML INJ IV ×3 (04:49→17:51)
[2018-08-20] MEDS: ACETAMINOPHEN 325 MG TABLET 650 MG PO ×3 (04:54→17:18)
--- NOTE | 2018-08-20 04:57 | PC.NURSE ---
Shift: After completion of second bag of FFP, pt was found to have a temp of 99.7 and c/o pain near liver of 8. Medicated pt with 4mg of morphine IV, pt restless in bed with occasional moans. Pt also c/o feeling hot, requested room temp to be lowered and that his mouth tasted like urine. Gave pt lemon glycerin swab sticks to moisten mouth. Aid put wet wash cloth on forehead to also provide comfort to pt. Pt had previously been running elevated temps on evening shift and was treated with PO tylenol which proved to be effective. Gave pt 650mg of Tylenol PO with two small sips of water for increasing temp on shift.
[2018-08-20] MEDS: SODIUM CHLORIDE 0.9% 1,000 ML 100 ML IV (06:32)
[2018-08-20 06:40] LABS: INR 1.6 (0.9-1.3); Prothrombin Time 18.1 SECONDS (10.1-12.7)
[2018-08-20 06:42] LABS: PTT Partial Thromboplastin Tim 35 SECONDS (26.4-36.2)
[2018-08-20] MEDS: ONDANSETRON 4 MG/2 ML INJ IV (09:05)
--- NOTE | 2018-08-20 09:17 | PC.NURSE ---
delay with intervention, waiting for physician arrivals. pt remain alert and awake, medicated for comfort with nausea.
--- NOTE | 2018-08-20 09:19 | PC.NURSE ---
intervention delay due to coags . pt transfer back to the room.
[2018-08-20] MEDS: PIPERACILLIN-TAZO 3.375 GM/50 ML FROZ.PIGGY IV ×2 (10:15→17:17)
[2018-08-20] MEDS: fentaNYL 100 MCG/2 ML INJ IV (11:32)
[2018-08-20] MEDS: MIDAZOLAM 2 MG/2 ML VIAL IV (11:37)
--- NOTE | 2018-08-20 11:46 | PC.NURSE ---
pt remain alert and follows command.
--- NOTE | 2018-08-20 11:47 | PC.NURSE ---
dr quijano and dr ferguson at bs, dr navarrete inserting peritoneal drain thru liver
--- NOTE | 2018-08-20 11:51 | PC.NURSE ---
remedicating, pt alert , states, pain increasing, fentanyl 50mcg left fore arm by KM rn.
--- NOTE | 2018-08-20 12:00 | PC.NURSE ---
dr quijano decompressed, brown with floating debri, total of 52ml pt pain free, denies pain at this time, denies shortness of breath.
--- NOTE | 2018-08-20 12:09 | PC.NURSE ---
2nd FFP will be infusing.
--- NOTE | 2018-08-20 13:17 | PM.PN.1 ---
Subjective Date Patient Seen: 08/20/18 Interval history: Drain placed by IR today. 60ml of turbid bile drained, cultures sent. patient feels much better after drain placement. Exam Vital Signs (past 8 hours): - 08/20/18 06:34 08/20/18 08:48 08/20/18 09:44 Temperature 98.2 F 98.3 F 99.9 F H Pulse Rate 82 80 Respiratory Rate 16 24 Blood Pressure 140/56 L 113/60 Pulse Oximetry 97 98 08/20/18 10:20 08/20/18 10:21 08/20/18 10:22 Temperature 100.9 F H 100.9 F H 100.9 F H Pulse Rate 82 82 82 Respiratory Rate 16 16 16 Blood Pressure 115/63 115/63 115/63 Pulse Oximetry 95 08/20/18 11:01 08/20/18 11:07 08/20/18 11:24 Temperature 101.3 F H 101.3 F H 101.3 F H Pulse Rate 79 81 Respiratory Rate 18 18 Blood Pressure 113/67 113/60 Pulse Oximetry 97 08/20/18 11:34 08/20/18 11:44 08/20/18 11:47 Temperature 99.0 F Pulse Rate 79 75 Respiratory Rate 18 16 16 Blood Pressure 116/67 112/60 103/63 Pulse Oximetry 98 97 98 08/20/18 11:55 08/20/18 11:58 08/20/18 12:04 Temperature 99.9 F H Pulse Rate 71 71 73 Respiratory Rate 16 16 16 Blood Pressure 101/62 113/62 105/66 Pulse Oximetry 97 98 08/20/18 12:08 08/20/18 12:11 08/20/18 12:35 Temperature 99.9 F H 99.3 F Pulse Rate 71 71 77 Respiratory Rate 16 16 16 Blood Pressure 113/84 113/62 147/60 H Pulse Oximetry 98 08/20/18 12:45 Temperature 99.3 F Pulse Rate Respiratory Rate Blood Pressure Pulse Oximetry Oxygen Delivery Method Room Air Oxygen Flow Rate 2 GI Palpation: soft Objective Labs Result Diagrams: 08/19/18 14:00 08/19/18 14:00 Labs: Laboratory Results - last 24 hr 08/19/18 08/19/18 08/19/18 14:00 14:00 14:00 WBC 26.7 H RBC 5.18 Hgb 15.5 Hct 45.3 MCV 87.5 MCH 29.9 MCHC 34.1 RDW 14.2 Plt Count 473 H Neut % (Auto) Not Reportable Lymph % (Auto) Not Reportable [place] % (Auto) Not Reportable Eos % (Auto) Not Reportable Baso % (Auto) Not Reportable Total Counted 100 Seg Neutrophils % 82.0 H Band Neutrophils % 9.0 H Lymphocytes % (Manual) 2.0 L Monocytes % (Manual) 7.0 Neutrophils # (Manual) 46101 H RBC Morphology Normal morphology PT 17.9 H INR 1.6 H APTT 38 H Sodium 137 Potassium 4.0 Chloride 98 Carbon Dioxide 24 BUN 10 Creatinine 0.80 Estimated GFR > 60.0 BUN/Creatinine Ratio 12.5 Glucose 113 H Calcium 9.7 Total Bilirubin 1.7 H Conjugated Bilirubin 0.0 Unconjugated Bilirubin 1.4 H AST 33 ALT 106 H Alkaline Phosphatase 153 H Total Protein 7.8 Albumin 4.6 Globulin 3.2 Albumin/Globulin Ratio 1.4 Lipase 1595 H D Blood Type Antibody Screen 08/19/18 08/20/18 20:18 06:04 WBC RBC Hgb Hct MCV MCH MCHC RDW Plt Count Neut % (Auto) Lymph % (Auto) [place] % (Auto) Eos % (Auto) Baso % (Auto) Total Counted Seg Neutrophils % Band Neutrophils % Lymphocytes % (Manual) Monocytes % (Manual) Neutrophils # (Manual) RBC Morphology PT 18.1 H INR 1.6 H APTT 35 D Sodium Potassium Chloride Carbon Dioxide BUN Creatinine Estimated GFR BUN/Creatinine Ratio Glucose Calcium Total Bilirubin Conjugated Bilirubin Unconjugated Bilirubin AST ALT Alkaline Phosphatase Total Protein Albumin Globulin Albumin/Globulin Ratio Lipase Blood Type B Positive Antibody Screen Negative Assessment & Plan Plan: Assessment/Plan Narrative: intraabdominal abscess. drain in place. monitor today, continue iv abx. anticipate discharge tomorrow morning.
[2018-08-20] MEDS: OXYCODONE IR 5 MG TABLET 20 MG PO ×2 (14:41→19:19)
--- NOTE | 2018-08-20 15:47 | CM.DANOTE ---
Discharge Planning/Care Management 42-year-old male status post laparoscopic cholecystectomy performed by Dr. Austin on 08/03/2018, with complication of postoperative bile leak requiring readmission 9 days later and subsequent transfer to a outside facility for ERCP and stent placement at an outside facility last week. Met with patient and spouse/Tiffanie: notified of CM team role and patient understood. Patient remains on IV abx with a drain in place, Per MD patient to possibly discharge tomorrow. Patient uneasy with this decision. Patient's goal is to discharge home with supportive family but wants to ensure he will not be sent home too early. Plan: Home when medically stable. 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 No Advance Directives on File No History Provided By Patient Medical Record Has Patient been admitted in last 30 Yes days? Prior Living Arrangements House Household Members significant other children Type of transporation used prior to Drives own vehicle admit Independent with ADL's Yes Is patient alert and oriented? Yes Discharge Plan Home Referrals Initiated None needed Whiteboard Updated in Patient Room with Yes name and ext. # of Typewriter Repairer Review Status In Process Please Provide Date Initial DC 08/20/18 Assessment Was Performed Next Review Type Continued Stay Review
--- NOTE | 2018-08-20 16:24 | PC.NURSE ---
Day Shift- Pt NPO in AM, pt went to U/S at 0835, back to unit as the request was for pt to receive 2 units of FFP and ABX infusion just prior to U/S guided drain placement. Spoke with Dr. Paris at 0925 and new orders rec'd. Order rec'd also for the fluid culture from drain placement to be collected and have anaerobic/aerobic cultures done. Pt was having 99.3-101.3 fevers prior to procedure. prn Tylenol given at 1110. Total 2 units FFP transfused without difficulty/reaction noted. Pt arrived back to unit from RUQ drain placement at 1205. Pt A&OX4, talkative, smiling at times, better spirits. No pain upon arrival, VSS. Drain to gravity, no drainage noted in tubing yet. Pt's conversation with Dr. Paris included that pt would likely discharge tomorrow with the drain and to record the drain output to report during his follow up appointment. Also that he is to continue his dosing of Ciprofloxacin that he already was taking at home unless otherwise directed by the surgical team.
[2018-08-20] MEDS: LORazepam 1 MG TABLET PO (19:26)
--- NOTE | 2018-08-20 22:20 | PC.NURSE ---
1700: Pt alert/oriented. Pain 6/10, medicated with tylenol and pt repositioned self. Dressing to drain site peeling at medial edge, tape applied, dressing clean/dry. Drain patent, green output. Abd soft/tender, BT+, denies nausea. Using call light appropriately for needs. 1740: Reports pain increasing, 810. MD notified and orders for IV morphine for break through pain received. Given at 1751. 1920: PRN Oxycodone and scheduled Ativan given as requested. Pain 7/10. 2030: Pt resting, rr reg/14 2215: Assisted pt to reposition in bed. Reports pain okay and denies need for pain meds/further intervention at this time.
[2018-08-21 00:13] VITALS: TEMP 37.6
[2018-08-21] MEDS: ACETAMINOPHEN 325 MG TABLET 650 MG PO ×2 (00:13→05:52)
[2018-08-21] MEDS: OXYCODONE IR 5 MG TABLET 20 MG PO ×3 (00:15→13:24)
[2018-08-21] MEDS: PIPERACILLIN-TAZO 3.375 GM/50 ML FROZ.PIGGY IV ×2 (00:17→08:52)
[2018-08-21 00:30] VITALS: O2SAT 97
[2018-08-21 06:10] VITALS: BP 112/69; PULSE 75; RESP 19; TEMP 36.8; O2SAT 99
[2018-08-21 06:11] LABS: Add Manual Diff / Slide Review NO; Basophils Percent Auto 0.4 % (0-2); Eosinophils Percent Auto 2.5 % (2-4); Hematocrit 36.6 % (41-53); Hemoglobin 12.4 g/dL (13.5-17.5); Lymphocytes Percent Auto 8.4 % (25-40); Mean Corpuscular Hemoglobin 29.9 PG (26-34); Mean Corpuscular Volume 88.1 fL (80-100); Neutrophils Absolute Auto 14600 /uL (3000-5900); Neutrophils Percent Auto 79.7 % (50-75); Platelet Count 391 X10^3/uL (150-400); Red Blood Cell Count 4.15 X10^6/uL (4.5-5.9); Red Cell Distribution Width 13.9 % (11.6-14.8); White Blood Cell Count 18.3 X10^3/uL (4.5-11.0)
[2018-08-21 07:50] VITALS: BP 97/61; PULSE 65; RESP 24; TEMP 36.7; O2SAT 97
[2018-08-21 08:40] VITALS: O2SAT 97
[2018-08-21] MEDS: MORPHINE 4 MG/ML INJ IV (08:52)
--- NOTE | 2018-08-21 10:48 | PM.PN.1 ---
Subjective Date Patient Seen: 08/21/18 Interval history: still having pain, but relieved with oxycodone with intermittent use of morphine. tolerating diet. passing flatus. no nausea. afebrile. Exam Vital Signs (past 8 hours): - 08/21/18 06:10 08/21/18 07:50 Temperature 98.3 F 98.1 F Pulse Rate 75 65 Respiratory Rate 19 24 Blood Pressure 112/69 97/61 Pulse Oximetry 99 97 Oxygen Delivery Method Room Air Oxygen Flow Rate 0 Const General: cooperative and comfortable GI Inspection: incision (all incisions healing well, no erythema. ) and other (drain in place. 50mL turbid [place] colored output overnight. ) Palpation: soft Objective Labs Result Diagrams: 08/21/18 05:46 08/19/18 14:00 Labs: Laboratory Results - last 24 hr 08/19/18 08/21/18 20:18 05:46 WBC 18.3 H RBC 4.15 L Hgb 12.4 L Hct 36.6 L MCV 88.1 MCH 29.9 MCHC 34.0 RDW 13.9 Plt Count 391 Neut % (Auto) 79.7 H Lymph % (Auto) 8.4 L [place] % (Auto) 9.0 Eos % (Auto) 2.5 Baso % (Auto) 0.4 Neut # (Auto) 67113 H Blood Type B Positive Antibody Screen Negative Assessment & Plan Plan: Assessment/Plan Narrative: s/p drain placement by IR. Explained diagnosis and cause of leak (either from duct of [place] or surface of liver bed of gallbladder fossa), explained treatment interventions and the benefits, as well as expected management to patient and patient's girlfriend with use of illustations. they feel more comfortable with treatment plan, and also comfortable with discharge today. flushing and recording drain output instructions to be done by nursing. patient has follow up with Dr. Austin on 08/25/18. Patient to be notified of culture results when available next week or during office follow up, and instructions of continued antibiotic management. another week of cipro prescribed. pain management as per pain contract with another provider.
--- NOTE | 2018-08-21 10:55 | P.PN_ITS ---
Subjective Date Patient Seen: 08/21/18 Interval history: still having pain, but relieved with oxycodone with intermittent use of morphine. tolerating diet. passing flatus. no nausea. afebrile. Exam Vital Signs (past 8 hours): - 08/21/18 06:10 08/21/18 07:50 Temperature 98.3 F 98.1 F Pulse Rate 75 65 Respiratory Rate 19 24 Blood Pressure 112/69 97/61 Pulse Oximetry 99 97 Oxygen Delivery Method Room Air Oxygen Flow Rate 0 Const General: cooperative and comfortable GI Inspection: incision (all incisions healing well, no erythema. ) and other ( drain in place. 50mL turbid [place] colored output overnight. ) Palpation: soft Objective Labs Result Diagrams: 08/21/18 05:46 08/19/18 14:00 Labs: Laboratory Results - last 24 hr 08/19/18 08/21/18 20:18 05:46 WBC 18.3 H RBC 4.15 L Hgb 12.4 L Hct 36.6 L MCV 88.1 MCH 29.9 MCHC 34.0 RDW 13.9 Plt Count 391 Neut % (Auto) 79.7 H Lymph % (Auto) 8.4 L [place] % (Auto) 9.0 Eos % (Auto) 2.5 Baso % (Auto) 0.4 Neut # (Auto) 97889 H Blood Type B Positive Antibody Screen Negative Assessment & Plan Plan: Assessment/Plan Narrative: s/p drain placement by IR. Explained diagnosis and cause of leak (either from duct of [place] or surface of liver bed of gallbladder fossa), explained treatment interventions and the benefits, as well as expected management to patient and patient's girlfriend with use of illustations. they feel more comfortable with treatment plan, and also comfortable with discharge today. flushing and recording drain output instructions to be done by nursing. patient has follow up with Dr. Austin on 08/25/18. Patient to be notified of culture results when available next week or during office follow up, and instructions of continued antibiotic management. another week of cipro prescribed. pain management as per pain contract with another provider.
--- NOTE | 2018-08-21 10:55 | PM.DS.1 ---
History of Present Illness Chief complaint: SENT BY Narrative: 42-year-old male status post laparoscopic cholecystectomy performed by Dr. Austin on 08/03/2018, with complication of postoperative bile leak requiring readmission 9 days later and subsequent transfer to a outside facility for ERCP and stent placement at an outside facility last week. Patient patient called the surgical clinic this morning and spoke to Dr. Oro, complaining of worsening abdominal pain and chills. She recommended patient immediately report to the emergency room for further evaluation. Patient arrived later today and was evaluated emergency department. He also voiced his concerns for chills and increasing abdominal pain mostly in the right upper quadrant of the abdomen. He said the pain became worse after he felt a popping sensation in his abdomen. He has no appetite but is able to tolerate liquids and is thirsty. He also feels slightly bloated. Denies any nausea or vomiting. Discharge Providers Date of admission: 08/19/18 17:43 Primary care physician: Attila Santos MD Discharge provider: Osman Paris MD Discharge Date: 08/21/18 Summary Discharge Diagnosis: intraabdominal abscess Hospital Course: direct admission via ER for intraabdominal abscess. IR placed drain the following morning. Clinically improved and stable for discharge the next day. Status at Discharge Cognitive/behavioral status at discharge: stable Functional status at discharge: independent ambulation Overall status at discharge: patient is progressing back to baseline Time Spent with Patient Greater than 30 minutes Exam Vital Signs (past 8 hours): - 08/21/18 06:10 08/21/18 07:50 Temperature 98.3 F 98.1 F Pulse Rate 75 65 Respiratory Rate 19 24 Blood Pressure 112/69 97/61 Pulse Oximetry 99 97 Oxygen Delivery Method Room Air Oxygen Flow Rate 0 Objective Labs Result Diagrams: 08/21/18 05:46 08/19/18 14:00 Labs: Laboratory Results - last 24 hr 08/19/18 08/21/18 20:18 05:46 WBC 18.3 H RBC 4.15 L Hgb 12.4 L Hct 36.6 L MCV 88.1 MCH 29.9 MCHC 34.0 RDW 13.9 Plt Count 391 Neut % (Auto) 79.7 H Lymph % (Auto) 8.4 L [place] % (Auto) 9.0 Eos % (Auto) 2.5 Baso % (Auto) 0.4 Neut # (Auto) 54268 H Blood Type B Positive Antibody Screen Negative Discharge Plan Discharge Plan Discharge Problem: Intra-abdominal abscess Patient Disposition: Home Discharge Med Rec/Prescriptions Prescriptions: New ciprofloxacin HCl [Cipro] 500 mg Tablet 500 mg PO BID 7 Days Qty: 14 RF: 0 Continue dextroamphetamine-amphetamine [Adderall XR] 20 mg capsule,extended release 24hr 20 mg PO BID Qty: 60 RF: 0 oxycodone 5 mg tablet 10 mg PO Q4-6H PRN (Reason: pain) Qty: 40 RF: 0 lorazepam 1 mg tablet 1 mg PO BID-TID PRN (Reason: anxiety) Qty: 14 RF: 0 sennosides [Senokot] 8.6 mg tablet 8.6 mg PO BEDTIME Qty: 10 RF: 1 docusate sodium [Colace] 100 mg capsule 100 mg PO BID Qty: 14 RF: 1 hydromorphone 2 mg tablet 2 mg PO Q4H PRN (Reason: pain) Qty: 30 RF: 0 metronidazole 500 mg tablet 500 mg PO TID RF: 0 ciprofloxacin HCl 500 mg tablet 500 mg PO BID RF: 0 oxycodone 10 mg tablet 10 - 20 mg PO Q6H MDD 6 PRN (Reason: pain) RF: 0 Provider Discharge Instructions Diet: Diet as Tolerated Activity: as tolerated Skin/Wound/Dressing Care Other wound treatment: flush drain daily. record output Discharge Data Primary Care Provider: Attila Santos Attending Provider: Osman Paris Admit Date/Time: 08/19/18 17:43
[2018-08-21] MEDS: CIPROFLOXACIN 500 MG TABLET PO (13:23)
[2018-08-21] MEDS: FLUCONAZOLE 100 MG TABLET PO (13:24)
--- NOTE | 2018-08-21 13:42 | PC.NURSE ---
discharge Pt states he has pain in his abd, controlled with morphine and then oxy. Provided pt with PO abx and fluconazole. PIV and tele removed prior to d/c. aware of f/u apt with Dr Austin and notified to f/u with PCP as well. Aware to contact MD with any additional questions or concerns. d/c instructions provided to pt and his girlfriend. educated pt on how to flush drain, he returned demonstration. pt left in w/c with RN escort to private car.
== END 2018-08-21 13:35 | disposition home or self-care (01) | DRG 252 ==
LOC: ED 14:14 → AC 17:45
PROVIDERS: Emergency Medicine; Admitting Provider Surgery; PCP Family Medicine; Visit Provider Surgery
DX: K91.89 Other postprocedural complications and disorders of digestive system (principal); K65.1 Peritoneal abscess; Y83.6 Removal of other organ (partial) (total) as the cause of abnormal reaction of the patient, or of later complication, without mention of misadventure at the time of the procedure; G89.29 Other chronic pain; F11.20 Opioid dependence, uncomplicated; Z72.0 Tobacco use
CPT/HCPCS: 36415; 36430; 36591; 49418; 74177; 80048; 80076; 83690; 85025; 85610; 85730; 86850; 86900; 86901; 86927; 87070; 87075; 87077; 87086; 87205; 99283; P9016; J2250; J2270; J2405; J2543; J3010; Q9967

== ENCOUNTER → 2018-08-30 13:08 | Outpatient (CLI) | payer OTHER, MEDICAID, SELFPAY ==
[2018-08-19 19:07] VITALS: BMI 22.8
--- NOTE | 2018-08-30 13:14 | DI.RAD.S_ITS ---
PROCEDURE: XR ABDOMEN MIN 2V INDICATIONS: check biliary stent position TECHNIQUE: 2 views of the abdomen were acquired. COMPARISON: [facility], CT, CT ABDOMEN PELVIS W CON, 08/19/2018, 15:49. [facility], CR, XR CHEST 1 VIEW, 08/11/2018, 20:17. [facility], CT, CT ABDOMEN PELVIS WITH CONTRAST, 08/11/2018, 18:18. FINDINGS: Surgical changes and devices: Right upper quadrant pigtail drain, and internal biliary and pancreatic stents. When compared to prior CT dated 08/19/18 the biliary stent appears grossly unchanged. There is slight distal/inferior migration and rotation of pancreatic stent Bowel: No pneumoperitoneum. The bowel gas pattern is normal. Soft tissues: No masses; visualized solid organ contours appear normal in size. No suspicious abdominal calcifications. Bones: No suspicious bony abnormalities. IMPRESSION: Internal stent positions as detailed above. Dictated by: Tin Ponce M.D. on 08/30/2018 at 13:51 Approved by: Tin Ponce M.D. on 08/30/2018 at 13:55
[2018-08-30 13:48] LABS: Add Manual Diff / Slide Review NO; Basophils Percent Auto 0.7 % (0-2); Eosinophils Percent Auto 4.3 % (2-4); Hemoglobin 13.3 g/dL (13.5-17.5); Lymphocytes Percent Auto 35.6 % (25-40); Mean Corpuscular HGB Conc 33.3 % (30-36); Mean Corpuscular Hemoglobin 29.2 PG (26-34); Mean Corpuscular Volume 87.5 fL (80-100); Monocytes Percent Auto 7.5 % (3-14); Neutrophils Absolute Auto 4700 /uL (3000-5900); Neutrophils Percent Auto 51.9 % (50-75); Platelet Count 466 X10^3/uL (150-400); Red Blood Cell Count 4.57 X10^6/uL (4.5-5.9); Red Cell Distribution Width 14.4 % (11.6-14.8)
[2018-08-30 14:14] LABS: Alanine Aminotransferase 65 IU/L (21-72); Albumin 4.3 g/dL (3.5-5.0); Albumin Globulin Ratio 1.6 (1.0-2.8); Alkaline Phosphatase 94 U/L (38-126); Aspartate Aminotransferase 31 IU/L (17-59); BUN Creatinine Ratio 22.9 (6-22); Bilirubin Total 0.4 mg/dL (0.2-1.3); Blood Urea Nitrogen 16 mg/dL (9-20); Calcium 9.4 mg/dL (8.4-10.2); Carbon Dioxide 28 mmol/L (22-32); Chloride 100 mmol/L (98-107); Estimated Glomerular Filt Rate > 60.0 mL/min (>60); Globulin 2.7 g/dL (1.7-4.1); Glucose 76 mg/dL (70-100); HEMOLYSIS < 15 (0-50); Lipase 595 U/L (23-300); Potassium 4.8 mmol/L (3.4-5.1); Sodium 141 mmol/L (137-145)
== END ==
LOC: LAB 13:11 → RAD 13:13
PROVIDERS: PCP Family Medicine; Visit Provider Surgery
DX: K65.1 Peritoneal abscess (principal); Z46.59 Encounter for fitting and adjustment of other gastrointestinal appliance and device
CPT/HCPCS: 36415; 74019; 80053; 83690; 85025

== ENCOUNTER → 2018-09-01 14:40 | Outpatient (CLI) | payer OTHER, MEDICAID, SELFPAY ==
[2018-08-19 19:07] VITALS: BMI 22.8
[2018-09-01 15:14] LABS: Add Manual Diff / Slide Review NO; Basophils Percent Auto 0.7 % (0-2); Eosinophils Percent Auto 1.9 % (2-4); Hematocrit 43.6 % (41-53); Hemoglobin 14.5 g/dL (13.5-17.5); Lymphocytes Percent Auto 25.3 % (25-40); Mean Corpuscular HGB Conc 33.2 % (30-36); Mean Corpuscular Hemoglobin 29.1 PG (26-34); Mean Corpuscular Volume 87.8 fL (80-100); Monocytes Percent Auto 4.8 % (3-14); Neutrophils Absolute Auto 8000 /uL (3000-5900); Neutrophils Percent Auto 67.3 % (50-75); Platelet Count 429 X10^3/uL (150-400); Red Blood Cell Count 4.97 X10^6/uL (4.5-5.9); Red Cell Distribution Width 14.3 % (11.6-14.8); White Blood Cell Count 11.9 X10^3/uL (4.5-11.0)
[2018-09-01 15:34] LABS: Erythrocyte Sedimentation Rate 18 MM/HR (0-15)
[2018-09-01 15:41] LABS: Alanine Aminotransferase 69 IU/L (21-72); Albumin 4.7 g/dL (3.5-5.0); Albumin Globulin Ratio 1.6 (1.0-2.8); Alkaline Phosphatase 80 U/L (38-126); Amylase 54 U/L (30-110); Aspartate Aminotransferase 32 IU/L (17-59); BUN Creatinine Ratio 21.3 (6-22); Bilirubin Total 0.6 mg/dL (0.2-1.3); Blood Urea Nitrogen 17 mg/dL (9-20); C-Reactive Protein Quant 0.9 mg/dL (<1.0); Calcium 10.2 mg/dL (8.4-10.2); Carbon Dioxide 29 mmol/L (22-32); Chloride 99 mmol/L (98-107); Estimated Glomerular Filt Rate > 60.0 mL/min (>60); Globulin 2.9 g/dL (1.7-4.1); Glucose 111 mg/dL (70-100); HEMOLYSIS < 15 (0-50); Potassium 4.3 mmol/L (3.4-5.1); Sodium 142 mmol/L (137-145); Total Protein 7.6 g/dL (6.3-8.2)
== END ==
PROVIDERS: PCP Family Medicine; Visit Provider Family Medicine
DX: K65.1 Peritoneal abscess (principal)
CPT/HCPCS: 36415; 80053; 82150; 83013; 85025; 85651; 86140

== ENCOUNTER → 2018-09-14 13:16 | Outpatient (CLI) | payer OTHER, MEDICAID, SELFPAY ==
[2018-08-19 19:07] VITALS: BMI 22.8
--- NOTE | 2018-09-14 13:34 | DI.CT.S_ITS ---
PROCEDURE: CT ABDOMEN PELVIS W CON INDICATIONS: PAIN RIGHT FLANK AREA TECHNIQUE: After the administration of oral and intravenous contrast, 5 mm thick sections acquired from the diaphragms to the symphysis. 5 mm thick coronal and sagittal reformats were performed. For radiation dose reduction, the following was used: automated exposure control, adjustment of mA and/or kV according to patient size. COMPARISON: [facility], CT, CT ABDOMEN PELVIS W CON, 08/19/2018, 15:49. FINDINGS: Image quality: Excellent. ABDOMEN: Lung bases: Lung bases are clear. Heart size is normal. Solid organs: Liver is normal in size and enhancement. Gallbladder is surgically absent. Previously seen gallbladder fossa fluid collection has significantly decreased, currently measuring 30 mm diameter. Biliary system is non-dilated. , Bile duct stent is present. Pneumobilia within the left hepatic lobe is present. Previously seen pancreatic duct stent has been removed. Pancreas enhances normally. Spleen is normal in size and enhancement. No adrenal nodules. Kidneys are normal in size and enhancement, without hydronephrosis. Peritoneum and bowel: Stomach, small bowel, and colon loops are normal in caliber and wall thickness. No free fluid or air. Previously seen fat stranding adjacent to the gallbladder fossa fluid collection has nearly resolved. Nodes and vessels: No retroperitoneal or mesenteric adenopathy. Scattered mildly prominent mesenteric lymph nodes are present. Aorta and inferior vena cava are normal in caliber. Miscellaneous: No ventral hernias. PELVIS: Genitourinary: Bladder wall thickness is normal. Miscellaneous: No inguinal hernias or adenopathy. Bones: No suspicious bony lesions. No vertebral body compression fractures. IMPRESSION: 1. Resolving fluid collection within the gallbladder fossa, and resolving surrounding inflammatory sequelae. 2. Status post removal of pancreatic duct stent, with no evidence of increased pancreatic duct diameter. Dictated by: Jb Varghese M.D. on 09/14/2018 at 15:12 Approved by: Jb Varghese M.D. on 09/14/2018 at 15:17
== END ==
PROVIDERS: PCP Family Medicine; Visit Provider Family Medicine
DX: K65.1 Peritoneal abscess (principal); R10.9 Unspecified abdominal pain; Z90.49 Acquired absence of other specified parts of digestive tract
CPT/HCPCS: 74177; Q9967

== ENCOUNTER 2018-09-17 10:09 | Emergency (ER) | payer OTHER, MEDICAID, SELFPAY ==
[2018-08-19 19:07] VITALS: BMI 22.8
[2018-09-17 10:21] VITALS: BP 124/85; PULSE 87; RESP 20; TEMP 36.6; O2SAT 100; BMI 31.1
--- NOTE | 2018-09-17 10:31 | DI.RAD.S_ITS ---
PROCEDURE: XR CHEST 1V INDICATIONS: chest pain TECHNIQUE: One view of the chest was acquired. COMPARISON: [facility], CR, XR CHEST 1 VIEW, 08/11/2018, 20:17. FINDINGS: Surgical changes and devices: None. Lungs and pleura: Previously seen right basilar airspace disease has resolved in the interim. No new focal areas of consolidation are evident. There is no pneumothorax or pleural effusion. Mediastinum: Mediastinal contours appear normal. Heart size is normal. Bones and chest wall: No suspicious bony lesions. Overlying soft tissues appear unremarkable. IMPRESSION: Unremarkable chest. No acute cardiopulmonary process is evident. Dictated by: Kevin Lakhani M.D. on 09/17/2018 at 9:48 Approved by: Kevin Lakhani M.D. on 09/17/2018 at 9:48
--- NOTE | 2018-09-17 10:39 | ED.CHESTPAIN ---
HPI - Chest Pain General Chief Complaint: Chest Pain Stated Complaint: CHEST PAIN X5 DAYS Time Seen by Provider: 09/17/18 10:21 Source: patient and family Mode of arrival: ambulatory Limitations: no limitations History of Present Illness HPI narrative: 43-year-old nonsmoking male with extensive recent medical history presents with a chief complaint of 5 days of vague chest pressure and lung pressure with radiation to his back. He denies provocation or palliation. He denies associated symptoms such as nausea, vomiting, fever or chills. The patient has had extensive complications from recent gallbladder surgery including multiple visits back to the operating suite for the placement of drains and stents. He denies any abdominal pain and has had no nausea, vomiting or diarrhea. He no longer has any drains and had a recent CT of his abdomen and pelvis a few days ago. He has had no fever or chills. MD complaint: chest pain Onset (ago): day(s) Duration: constant Pain location: left chest and right chest Severity: moderate Quality: tightness Pain radiation: none Relieving factors: nothing Exacerbating factors: nothing Context: recent surgery Associated symptoms: dyspnea Treatments prior to arrival chest pain: none Related Data Home Medications Medication Instructions Recorded Confirmed oxycodone 10 mg PO Q4H PRN 09/17/18 09/17/18 Previous Rx's Medication Instructions Recorded dextroamphetamine-amphetamine ER 20 mg PO BID #60 cap 09/16/18 20 mg 24hr capsule,extend release ketorolac 10 mg PO Q6H PRN #14 tab 09/17/18 Allergies Allergy/AdvReac Type Severity Reaction Status Date / Time No Known Drug Allergies Allergy Verified 09/01/18 14:11 Review of Systems Review of Systems All systems reviewed & are unremarkable except as noted in HPI and below Constitutional Denies chills, Denies fever(s), Denies lethargy and Denies weakness Eyes Denies change in vision, Denies eye discharge, Denies irritation and Denies loss of vision ENT Ears, Nose, Mouth, and Throat: Denies change in voice, Denies neck pain and Denies sore throat Cardiovascular Reports chest pain, Denies irregular heart rhythm, Denies lightheadedness, Denies palpitations, Reports dyspnea, Denies dyspnea on exertion and Denies orthopnea Respiratory Denies cough, Reports dyspnea, Denies dyspnea on exertion and Denies wheezing Gastrointestinal Gastrointestinal: Denies abdominal pain, Denies change in bowel habits, Denies diarrhea, Denies nausea and Denies vomiting Genitourinary Denies hematuria, Denies flank pain, Denies urinary incontinence and Denies urinary urgency Musculoskeletal Reports back pain and Denies neck pain Integumentary/Breasts Denies pruritus, Denies erythema, Denies rash and Denies wounds Neurologic Denies confusion, Denies loss of vision and Denies weakness Psychiatric Denies anxiety, Denies confusion, Denies depression, Denies homicidal ideation and Denies suicidal ideation Endocrine Denies palpitations Hematologic/Lymphatic Denies easy bruising Allergic/Immunologic Denies wheezing [facility] Medical History ADD (attention deficit disorder) (Acute) 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) Foot pain (Chronic 2013) Hemorrhoids (Chronic 2005) Chicken pox (Resolved 1982) Open fracture of right foot (Resolved 2013) Wound of right foot (Resolved 2013) Surgical History History of laparotomy (Acute) Hx of appendectomy (Acute) Hx of hemorrhoidectomy (Acute) S/P laparoscopic cholecystectomy (Acute) Anesthesia (Resolved) Status post appendectomy (Resolved 1989) Status post hemorrhoidectomy (Resolved 2005) Status post right foot surgery (Resolved 11/2013) Status post right foot surgery (Resolved 01/2014) Family History Mother Heart disease Hypertension High cholesterol Stroke Diabetes mellitus Father Lung cancer Social History marital status: unmarried,living together household members: significant other and children occupational status: employed Smoking Status: Former smoker alcohol intake: current substance use type: does not use Exam Narrative Exam Narrative: GENERAL: 43-year-old male, resting comfortably in no obvious or significant distress HEAD: Atraumatic. Normocephalic. No temporal or scalp tenderness. EYES: Pupils equal round and reactive. Extraocular motions intact. No scleral icterus. No injection or drainage. ENT: Nose without bleeding, purulent drainage or septal hematoma. Throat without erythema, tonsillar hypertrophy or exudate. Uvula midline. Airway patent. NECK: Trachea midline. No JVD or lymphadenopathy. Supple, nontender, no meningeal signs. CARDIOVASCULAR: Regular rate and rhythm without murmurs, gallops, or rubs. RESPIRATORY: Clear to auscultation. Breath sounds equal bilaterally. No wheezes, rales, or rhonchi. GASTROINTESTINAL: Abdomen soft, non-tender, nondistended. No hepato-splenomegaly, or palpable masses. No guarding. EXTREMITIES: No clubbing, cyanosis, or edema. No joint tenderness, effusion, or edema noted. BACK: Nontender without deformity or crepitance. No flank tenderness. NEURO: AOx3. SKIN: No rash or erythema. Initial Vital Signs Initial Vital Signs: Vital Signs Temperature 97.8 F 09/17/18 10:21 Pulse Rate 87 09/17/18 10:21 Respiratory Rate 20 09/17/18 10:21 Blood Pressure 124/85 09/17/18 10:21 Pulse Oximetry 100 09/17/18 10:21 Course Orders Ordered: ED Orders 09/17/18 10:31 XR chest 1V Stat 09/17/18 10:43 Complete Blood Count AUTO DIFF Stat Comprehensive Metabolic Panel Stat Lipase Stat Troponin & CK Cardiac Panel Stat 09/17/18 11:00 EKG-12 Lead Stat 09/17/18 11:23 CT angio chest PE protocol Stat Discontinued Medications Aspirin (Aspirin Chew) 324 mg PO NOW ONE Stop: 09/17/18 10:31 Last Admin: 09/17/18 11:01 Dose: Sodium Chloride (Normal Saline 0.9%) 1,000 mls @ 150 mls/hr IV CONT BLADIMIR Last Infusion: 09/17/18 12:21 Dose: 0 mls/hr Admin: 09/17/18 11:01 Dose: 150 mls/hr Vital Signs - 8 hr 09/17/18 10:21 09/17/18 11:00 09/17/18 12:00 Temperature 97.8 F Pulse Rate 87 63 56 L Respiratory Rate 20 Blood Pressure 124/85 Blood Pressure [Right Arm] 116/81 107/74 Pulse Oximetry 100 96 98 09/17/18 12:27 Temperature Pulse Rate 64 Respiratory Rate 20 Blood Pressure 107/74 Blood Pressure [Right Arm] Pulse Oximetry 99 MDM - Chest Pain Differential Diagnosis Likely pneumothorax, stable angina, unstable angina pectoris, atypical chest pain, st elevation myocardial infarction, costochondritis, chest pain, biliary colic and other Medical Records Data Attestation: I reviewed the patient's medical records. Lab Data Attestation: I reviewed the patient's lab results. Result diagrams: 09/17/18 10:43 09/17/18 10:43 Lab Results 09/17/18 09/17/18 Range/Units 10:43 10:43 WBC 6.1 (4.5-11.0) X10^3/uL RBC 4.97 (4.5-5.9) X10^6/uL Hgb 14.5 (13.5-17.5) g/dL Hct 43.4 (41-53) % MCV 87.4 (80-100) fL MCH 29.1 (26-34) PG MCHC 33.3 (30-36) % RDW 14.8 (11.6-14.8) % Plt Count 237 (150-400) X10^3/uL Neut % (Auto) 53.0 (50-75) % Lymph % (Auto) 33.0 (25-40) % [place] % (Auto) 7.7 (3-14) % Eos % (Auto) 5.3 H (2-4) % Baso % (Auto) 1.0 (0-2) % Neut # (Auto) 3200 (4350-1348) /uL Sodium 142 (137-145) mmol/L Potassium 4.3 (3.4-5.1) mmol/L Chloride 107 (98-107) mmol/L Carbon Dioxide 25 (22-32) mmol/L BUN 16 (9-20) mg/dL Creatinine 0.70 (0.66-1.25) mg/dL Estimated GFR > 60.0 (>60) mL/min BUN/Creatinine Ratio 22.9 H (6-22) Glucose 106 H (70-100) mg/dL Calcium 9.6 (8.4-10.2) mg/dL Total Bilirubin 0.9 (0.2-1.3) mg/dL AST 20 (17-59) IU/L ALT 30 (21-72) IU/L Alkaline Phosphatase 64 (38-126) U/L Total Creatine Kinase 67 (55-170) U/L CK-MB (CK-2) TNP CK-MB (CK-2) Rel Index TNP Troponin I < 0.012 (0.01-0.034) ng/mL Total Protein 7.5 (6.3-8.2) g/dL Albumin 4.4 (3.5-5.0) g/dL Globulin 3.1 (1.7-4.1) g/dL Albumin/Globulin Ratio 1.4 (1.0-2.8) Lipase 79 (23-300) U/L Imaging Data CT scan - chest: Radiologist's impression: [address] [address] [address] Scan Report Signed Patient: Noble Johnson EMR#: [id number] : 1975Acct:[id number] Age/Sex: 43 / MDate of Service: 09/17/18 Loc: ED Accession Number: [id number] Procedure: CT angio chest PE protocol Ordering Provider: Geoff Gomez D.O. PROCEDURE: CT ANGIO CHEST PE PROTOCOL INDICATIONS: chest pains shortness of breath, Back pain, multiple recent surgeries TECHNIQUE: After the administration of intravenous contrast, 2 mm thick sections acquired from the pulmonary apices to the posterior costophrenic angles. 3-dimensional maximum intensity projection (MIP) coronal and sagittal reformats were then acquired through the thorax. For radiation dose reduction, the following was used: automated exposure control, adjustment of mA and/or kV according to patient size. COMPARISON: [facility], CT, CT ABDOMEN PELVIS W CON, 09/14/2018, 14:40. [facility], CR, XR CHEST 1V, 09/17/2018, 10:34. FINDINGS: Image quality: Excellent. Pulmonary arteries: Pulmonary arteries are normal in size, and demonstrate no intraluminal filling defects to suggest central pulmonary embolism. Lungs and pleura: Lungs are clear. No pleural effusions or pneumothorax. Central and peripheral airways are patent. Mediastinum: Heart size is normal, without pericardial effusion. No mediastinal or hilar adenopathy. Thoracic aorta is normal in caliber and enhancement. Esophagus is normal in caliber, without hiatal hernia. Bones and chest wall: No suspicious bony lesions. Ribs and thoracic spine appear intact throughout. Thyroid gland demonstrates no significant CT abnormality. No axillary or supraclavicular adenopathy. Abdomen: A biliary stent is partially visualized. Associated biliary gas is seen. Incidental note is made of an accessory spleen along the hilum of the primary spleen. The visualized portions of the upper abdominal structures are otherwise unremarkable for imaging technique. IMPRESSION: Negative for pulmonary embolism. Note is made of partial visualization of a biliary stent, with associated biliary gas. Dictated by: Felton Medellin M.D. on 09/17/2018 at 10:30 Approved by: Felton Medellin M.D. on 09/17/2018 at 10:34 ECG Data Attestation: I personally reviewed and interpreted this ECG as follows: Prior ECG tracings: not available for review Interpretation: Normal sinus rhythm without signs of ectopy or ischemia. No ST segment elevations or depressions. No T-wave inversions MDM Narrative Medical decision making narrative: Patient with extensive recent history of gallbladder disease and subsequent surgeries presents with pleuritic type chest pain with radiation to the back and shortness of breath over at least the last 5 days. He denies any abdominal discomfort or symptoms including nausea, vomiting or diarrhea. He denies fever or chills. His pain is sharp and radiates to his back. Given his hospitalizations and recent surgeries pulmonary embolism was ruled out. Patient has no abdominal complaints, a soft belly on exam and normal labs. Cardiac enzymes were evaluated and negative. Patient shows no sign of pneumonia. His pain is likely pleurisy. He has been prescribed ketorolac and given return precautions Discharge Plan Departure Patient Disposition: Home Clinical Impression: Pleurisy Discharge Date/Time: 09/17/18 12:28 Interventions: ED Discharge Assessment Last Done: 09/17/18 12:27 Instructions: DI for Pleurisy Activity Restrictions/Additional Instructions: *You have been diagnosed with [ pleurisy ] *What to do: *Take medications as directed *Follow up with your primary care provider in 2-3 days, call for an appointment. Let them know you were seen in the Emergency Department and that we ask that you be seen in follow up *Return to ER if you should have any new, worsening or concerning symptoms, such as [ increasing pain, SOB, nausea/vomiting, or other bothersome symptoms] Prescriptions: New ketorolac 10 mg tablet 10 mg PO Q6H PRN (Reason: pain) Qty: 14 RF: 0 No Action dextroamphetamine-amphetamine [Adderall XR] 20 mg capsule,extended release 24hr 20 mg PO BID Qty: 60 RF: 0 oxycodone 10 mg tablet 10 mg PO Q4H PRN (Reason: pain) RF: 0 Referrals: Attila Santos MD [Primary Care Provider] -
[2018-09-17 10:48] LABS: Add Manual Diff / Slide Review NO; Eosinophils Percent Auto 5.3 % (2-4); Hematocrit 43.4 % (41-53); Hemoglobin 14.5 g/dL (13.5-17.5); Mean Corpuscular HGB Conc 33.3 % (30-36); Mean Corpuscular Hemoglobin 29.1 PG (26-34); Mean Corpuscular Volume 87.4 fL (80-100); Monocytes Percent Auto 7.7 % (3-14); Neutrophils Absolute Auto 3200 /uL (3000-5900); Platelet Count 237 X10^3/uL (150-400); Red Blood Cell Count 4.97 X10^6/uL (4.5-5.9); Red Cell Distribution Width 14.8 % (11.6-14.8); White Blood Cell Count 6.1 X10^3/uL (4.5-11.0)
[2018-09-17 11:00] VITALS: BP 116/81; PULSE 63; O2SAT 96
[2018-09-17 11:00] LABS: Alanine Aminotransferase 30 IU/L (21-72); Albumin 4.4 g/dL (3.5-5.0); Albumin Globulin Ratio 1.4 (1.0-2.8); Alkaline Phosphatase 64 U/L (38-126); Aspartate Aminotransferase 20 IU/L (17-59); BUN Creatinine Ratio 22.9 (6-22); Bilirubin Total 0.9 mg/dL (0.2-1.3); Blood Urea Nitrogen 16 mg/dL (9-20); Calcium 9.6 mg/dL (8.4-10.2); Carbon Dioxide 25 mmol/L (22-32); Chloride 107 mmol/L (98-107); Creatine Kinase 67 U/L (55-170); Estimated Glomerular Filt Rate > 60.0 mL/min (>60); Globulin 3.1 g/dL (1.7-4.1); Glucose 106 mg/dL (70-100); HEMOLYSIS < 15 (0-50); Lipase 79 U/L (23-300); Potassium 4.3 mmol/L (3.4-5.1); Sodium 142 mmol/L (137-145); Total Protein 7.5 g/dL (6.3-8.2)
[2018-09-17] MEDS: SODIUM CHLORIDE 0.9% 1,000 ML 150 ML IV (11:01)
[2018-09-17 11:12] LABS: Troponin I < 0.012 ng/mL (0.01-0.034)
--- NOTE | 2018-09-17 11:24 | ED_ITS ---
HPI - Chest Pain General Chief Complaint: Chest Pain Stated Complaint: CHEST PAIN X5 DAYS Time Seen by Provider: 09/17/18 10:21 Source: patient and family Mode of arrival: ambulatory Limitations: no limitations History of Present Illness HPI narrative: 43-year-old nonsmoking male with extensive recent medical history presents with a chief complaint of 5 days of vague chest pressure and lung pressure with radiation to his back. He denies provocation or palliation. He denies associated symptoms such as nausea, vomiting, fever or chills. The patient has had extensive complications from recent gallbladder surgery including multiple visits back to the operating suite for the placement of drains and stents. He denies any abdominal pain and has had no nausea, vomiting or diarrhea. He no longer has any drains and had a recent CT of his abdomen and pelvis a few days ago. He has had no fever or chills. MD complaint: chest pain Onset (ago): day(s) Duration: constant Pain location: left chest and right chest Severity: moderate Quality: tightness Pain radiation: none Relieving factors: nothing Exacerbating factors: nothing Context: recent surgery Associated symptoms: dyspnea Treatments prior to arrival chest pain: none Related Data Home Medications Medication Instructions Recorded Confirmed oxycodone 10 mg PO Q4H PRN 09/17/18 09/17/18 Previous Rx's Medication Instructions Recorded dextroamphetamine-amphetamine ER 20 mg PO BID #60 cap 09/16/18 20 mg 24hr capsule,extend release ketorolac 10 mg PO Q6H PRN #14 tab 09/17/18 Allergies Allergy/AdvReac Type Severity Reaction Status Date / Time No Known Drug Allergies Allergy Verified 09/01/18 14:11 Review of Systems Review of Systems All systems reviewed & are unremarkable except as noted in HPI and below Constitutional Denies chills, Denies fever(s), Denies lethargy and Denies weakness Eyes Denies change in vision, Denies eye discharge, Denies irritation and Denies loss of vision ENT Ears, Nose, Mouth, and Throat: Denies change in voice, Denies neck pain and Denies sore throat Cardiovascular Reports chest pain, Denies irregular heart rhythm, Denies lightheadedness, Denies palpitations, Reports dyspnea, Denies dyspnea on exertion and Denies orthopnea Respiratory Denies cough, Reports dyspnea, Denies dyspnea on exertion and Denies wheezing Gastrointestinal Gastrointestinal: Denies abdominal pain, Denies change in bowel habits, Denies diarrhea, Denies nausea and Denies vomiting Genitourinary Denies hematuria, Denies flank pain, Denies urinary incontinence and Denies urinary urgency Musculoskeletal Reports back pain and Denies neck pain Integumentary/Breasts Denies pruritus, Denies erythema, Denies rash and Denies wounds Neurologic Denies confusion, Denies loss of vision and Denies weakness Psychiatric Denies anxiety, Denies confusion, Denies depression, Denies homicidal ideation and Denies suicidal ideation Endocrine Denies palpitations Hematologic/Lymphatic Denies easy bruising Allergic/Immunologic Denies wheezing [facility] Medical History ADD (attention deficit disorder) (Acute) 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) Foot pain (Chronic 2013) Hemorrhoids (Chronic 2005) Chicken pox (Resolved 1982) Open fracture of right foot (Resolved 2013) Wound of right foot (Resolved 2013) Surgical History History of laparotomy (Acute) Hx of appendectomy (Acute) Hx of hemorrhoidectomy (Acute) S/P laparoscopic cholecystectomy (Acute) Anesthesia (Resolved) Status post appendectomy (Resolved 1989) Status post hemorrhoidectomy (Resolved 2005) Status post right foot surgery (Resolved 11/2013) Status post right foot surgery (Resolved 01/2014) Family History Mother Heart disease Hypertension High cholesterol Stroke Diabetes mellitus Father Lung cancer Social History marital status: unmarried,living together household members: significant other and children occupational status: employed Smoking Status: Former smoker alcohol intake: current substance use type: does not use Exam Narrative Exam Narrative: GENERAL: 43-year-old male, resting comfortably in no obvious or significant distress HEAD: Atraumatic. Normocephalic. No temporal or scalp tenderness. EYES: Pupils equal round and reactive. Extraocular motions intact. No scleral icterus. No injection or drainage. ENT: Nose without bleeding, purulent drainage or septal hematoma. Throat without erythema, tonsillar hypertrophy or exudate. Uvula midline. Airway patent. NECK: Trachea midline. No JVD or lymphadenopathy. Supple, nontender, no meningeal signs. CARDIOVASCULAR: Regular rate and rhythm without murmurs, gallops, or rubs. RESPIRATORY: Clear to auscultation. Breath sounds equal bilaterally. No wheezes , rales, or rhonchi. GASTROINTESTINAL: Abdomen soft, non-tender, nondistended. No hepato-splenomegaly , or palpable masses. No guarding. EXTREMITIES: No clubbing, cyanosis, or edema. No joint tenderness, effusion, or edema noted. BACK: Nontender without deformity or crepitance. No flank tenderness. NEURO: AOx3. SKIN: No rash or erythema. Initial Vital Signs Initial Vital Signs: Vital Signs Temperature 97.8 F 09/17/18 10:21 Pulse Rate 87 09/17/18 10:21 Respiratory Rate 20 09/17/18 10:21 Blood Pressure 124/85 09/17/18 10:21 Pulse Oximetry 100 09/17/18 10:21 Course Orders Ordered: ED Orders 09/17/18 10:31 XR chest 1V Stat 09/17/18 10:43 Complete Blood Count AUTO DIFF Stat Comprehensive Metabolic Panel Stat Lipase Stat Troponin & CK Cardiac Panel Stat 09/17/18 11:00 EKG-12 Lead Stat 09/17/18 11:23 CT angio chest PE protocol Stat Discontinued Medications Aspirin (Aspirin Chew) 324 mg PO NOW ONE Stop: 09/17/18 10:31 Last Admin: 09/17/18 11:01 Dose: Sodium Chloride (Normal Saline 0.9%) 1,000 mls @ 150 mls/hr IV CONT BLADIMIR Last Infusion: 09/17/18 12:21 Dose: 0 mls/hr Admin: 09/17/18 11:01 Dose: 150 mls/hr Vital Signs - 8 hr 09/17/18 10:21 09/17/18 11:00 09/17/18 12:00 Temperature 97.8 F Pulse Rate 87 63 56 L Respiratory Rate 20 Blood Pressure 124/85 Blood Pressure [Right Arm] 116/81 107/74 Pulse Oximetry 100 96 98 09/17/18 12:27 Temperature Pulse Rate 64 Respiratory Rate 20 Blood Pressure 107/74 Blood Pressure [Right Arm] Pulse Oximetry 99 MDM - Chest Pain Differential Diagnosis Likely pneumothorax, stable angina, unstable angina pectoris, atypical chest pain, st elevation myocardial infarction, costochondritis, chest pain, biliary colic and other Medical Records Data Attestation: I reviewed the patient's medical records. Lab Data Attestation: I reviewed the patient's lab results. Result diagrams: 09/17/18 10:43 09/17/18 10:43 Lab Results 09/17/18 09/17/18 Range/Units 10:43 10:43 WBC 6.1 (4.5-11.0) X10^3/uL RBC 4.97 (4.5-5.9) X10^6/uL Hgb 14.5 (13.5-17.5) g/dL Hct 43.4 (41-53) % MCV 87.4 (80-100) fL MCH 29.1 (26-34) PG MCHC 33.3 (30-36) % RDW 14.8 (11.6-14.8) % Plt Count 237 (150-400) X10^3/uL Neut % (Auto) 53.0 (50-75) % Lymph % (Auto) 33.0 (25-40) % [place] % (Auto) 7.7 (3-14) % Eos % (Auto) 5.3 H (2-4) % Baso % (Auto) 1.0 (0-2) % Neut # (Auto) 3200 (4446-7603) /uL Sodium 142 (137-145) mmol/L Potassium 4.3 (3.4-5.1) mmol/L Chloride 107 (98-107) mmol/L Carbon Dioxide 25 (22-32) mmol/L BUN 16 (9-20) mg/dL Creatinine 0.70 (0.66-1.25) mg/dL Estimated GFR > 60.0 (>60) mL/min BUN/Creatinine Ratio 22.9 H (6-22) Glucose 106 H (70-100) mg/dL Calcium 9.6 (8.4-10.2) mg/dL Total Bilirubin 0.9 (0.2-1.3) mg/dL AST 20 (17-59) IU/L ALT 30 (21-72) IU/L Alkaline Phosphatase 64 (38-126) U/L Total Creatine Kinase 67 (55-170) U/L CK-MB (CK-2) TNP CK-MB (CK-2) Rel Index TNP Troponin I < 0.012 (0.01-0.034) ng/mL Total Protein 7.5 (6.3-8.2) g/dL Albumin 4.4 (3.5-5.0) g/dL Globulin 3.1 (1.7-4.1) g/dL Albumin/Globulin Ratio 1.4 (1.0-2.8) Lipase 79 (23-300) U/L Imaging Data CT scan - chest: Radiologist's impression: [address] [address] [address] Scan Report Signed Patient: Noble Johnson EMR#: [id number] : 1975Acct:[id number] Age/Sex: 43 / MDate of Service: 09/17/18 Loc: ED Accession Number: [id number] Procedure: CT angio chest PE protocol Ordering Provider: Geoff Gomez D.O. PROCEDURE: CT ANGIO CHEST PE PROTOCOL INDICATIONS: chest pains shortness of breath, Back pain, multiple recent surgeries TECHNIQUE: After the administration of intravenous contrast, 2 mm thick sections acquired from the pulmonary apices to the posterior costophrenic angles. 3-dimensional maximum intensity projection (MIP) coronal and sagittal reformats were then acquired through the thorax. For radiation dose reduction, the following was used: automated exposure control, adjustment of mA and/or kV according to patient size. COMPARISON: [facility], CT, CT ABDOMEN PELVIS W CON, 09/14/2018, 14:40. [facility], CR, XR CHEST 1V, 09/17/2018, 10:34. FINDINGS: Image quality: Excellent. Pulmonary arteries: Pulmonary arteries are normal in size, and demonstrate no intraluminal filling defects to suggest central pulmonary embolism. Lungs and pleura: Lungs are clear. No pleural effusions or pneumothorax. Central and peripheral airways are patent. Mediastinum: Heart size is normal, without pericardial effusion. No mediastinal or hilar adenopathy. Thoracic aorta is normal in caliber and enhancement. Esophagus is normal in caliber, without hiatal hernia. Bones and chest wall: No suspicious bony lesions. Ribs and thoracic spine appear intact throughout. Thyroid gland demonstrates no significant CT abnormality. No axillary or supraclavicular adenopathy. Abdomen: A biliary stent is partially visualized. Associated biliary gas is seen. Incidental note is made of an accessory spleen along the hilum of the primary spleen. The visualized portions of the upper abdominal structures are otherwise unremarkable for imaging technique. IMPRESSION: Negative for pulmonary embolism. Note is made of partial visualization of a biliary stent, with associated biliary gas. Dictated by: Felton Medellin M.D. on 09/17/2018 at 10:30 Approved by: Felton Medellin M.D. on 09/17/2018 at 10:34 ECG Data Attestation: I personally reviewed and interpreted this ECG as follows: Prior ECG tracings: not available for review Interpretation: Normal sinus rhythm without signs of ectopy or ischemia. No ST segment elevations or depressions. No T-wave inversions MDM Narrative Medical decision making narrative: Patient with extensive recent history of gallbladder disease and subsequent surgeries presents with pleuritic type chest pain with radiation to the back and shortness of breath over at least the last 5 days. He denies any abdominal discomfort or symptoms including nausea, vomiting or diarrhea. He denies fever or chills. His pain is sharp and radiates to his back. Given his hospitalizations and recent surgeries pulmonary embolism was ruled out. Patient has no abdominal complaints, a soft belly on exam and normal labs. Cardiac enzymes were evaluated and negative. Patient shows no sign of pneumonia. His pain is likely pleurisy. He has been prescribed ketorolac and given return precautions Discharge Plan Departure Patient Disposition: Home Clinical Impression: Pleurisy Discharge Date/Time: 09/17/18 12:28 Interventions: ED Discharge Assessment Last Done: 09/17/18 12:27 Instructions: DI for Pleurisy Activity Restrictions/Additional Instructions: *You have been diagnosed with [ pleurisy ] *What to do: *Take medications as directed *Follow up with your primary care provider in 2-3 days, call for an appointment. Let them know you were seen in the Emergency Department and that we ask that you be seen in follow up *Return to ER if you should have any new, worsening or concerning symptoms , such as [ increasing pain, SOB, nausea/vomiting, or other bothersome symptoms] Prescriptions: New ketorolac 10 mg tablet 10 mg PO Q6H PRN (Reason: pain) Qty: 14 RF: 0 No Action dextroamphetamine-amphetamine [Adderall XR] 20 mg capsule,extended release 24hr 20 mg PO BID Qty: 60 RF: 0 oxycodone 10 mg tablet 10 mg PO Q4H PRN (Reason: pain) RF: 0 Referrals: Attila Santos MD [Primary Care Provider] -
[2018-09-17 12:00] VITALS: BP 107/74; PULSE 56; O2SAT 98
[2018-09-17 12:27] VITALS: BP 107/74; PULSE 64; RESP 20; O2SAT 99
== END 2018-09-17 12:28 | disposition home or self-care (01) ==
PROVIDERS: Emergency Provider Emergency Medicine; PCP Family Medicine
DX: R09.1 Pleurisy (principal)
CPT/HCPCS: 36591; 71045; 71275; 80053; 82550; 83690; 84484; 85025; 93005; 93010; 96360; 99283; 99285; Q9967

== ENCOUNTER 2019-08-02 10:31 | Emergency (ER) | payer OTHER, MEDICAID, SELFPAY ==
[2019-05-31 09:16] VITALS: BMI 22.8
[2019-08-02 10:35] VITALS: BP 117/77; PULSE 83; RESP 18; TEMP 37; O2SAT 100
--- NOTE | 2019-08-02 11:19 | DI.RAD.S_ITS ---
PROCEDURE: XR ACUTE ABDOMEN SERIES INDICATIONS: abd pain, epigastric pain TECHNIQUE: One view chest and two views of the abdomen were acquired. COMPARISON: None. FINDINGS: Surgical changes and devices: Surgical clips in the gallbladder fossa. Chest: Lungs are clear. Heart size is normal. No pleural effusions. No pneumoperitoneum. Abdomen: Bowel gas pattern is normal. No suspicious calcifications. Visualized solid organ contours appear normal. Bones: No suspicious bony lesions. IMPRESSION: 1. No acute process in the chest or abdomen. 2. Cholecystectomy change. Dictated by: Mary Ann Nelson M.D. on 08/02/2019 at 12:27 Approved by: Mary Ann Nelson M.D. on 08/02/2019 at 12:28
--- NOTE | 2019-08-02 11:25 | ED_ITS ---
HPI - Abdominal Pain <NAHEED RogersBC - Last Filed: 08/02/19 15:50> General Chief Complaint: Abdominal Pain Stated Complaint: reaction to medication Time Seen by Provider: 08/02/19 11:04 Source: patient Mode of arrival: Ambulatory Limitations: no limitations History of Present Illness HPI narrative: The patient is a 43-year-old male smoker with history of GERD, cholecystectomy and chronic abdominal pain who presents to the emergency department for an evaluation of stuffy nose sore throat He states that he started having a stuffy nose 2 days ago, sore throat yesterday. He attributes this to starting Carafate earlier this month after he saw his primary care provider. The patent has a very complicated medical history including a complicated cholecystectomy, and states he has not followed up for scopes as he was previously instructed. He states he is having bowel movements. He states that his pain is epigastric, radiating up substernal as well as lower abdomen. Denies any dysuria urgency or frequency. He states that he has been taking his Carafate and omeprazole as previously instructed by PCP. He has not followed up with Gastroenterology. He states that he has Gastroenterology group in [place] as well as [place]. However the patient states that he is here mostly for evaluation of a sore throat and stuffy nose, believing that they are related to his Carafate dosing. Related Data Home Medications Medication Instructions Recorded Confirmed hydroxyzine pamoate 25 - 50 mg PO QID PRN 08/02/19 08/02/19 oxycodone 10 mg PO Q4-6H PRN MDD 8 tabs per 08/02/19 08/02/19 day Previous Rx's Medication Instructions Recorded docusate sodium 100 mg capsule 100 mg PO BID #60 cap 11/18/18 sucralfate 1 gram tablet 1 gram PO QACHS #120 tab 07/19/19 dextroamphetamine-amphetamine 20 20 mg PO BID #60 tab 07/29/19 mg tablet Allergies Allergy/AdvReac Type Severity Reaction Status Date / Time No Known Drug Allergies Allergy Verified 07/19/19 15:04 Review of Systems <ELIER Rogers - Last Filed: 08/02/19 15:50> Review of Systems Narrative: GENERAL: Denies chills, fatigue, malaise, fever, sweats. HEENT: see HPI RESPIRATORY: Denies dyspnea, cough, wheezing, hemoptysis, sputum. CARDIOVASCULAR: Denies chest pain, palpitations, orthopnea, edema, GASTROINTESTINAL: See HPI : Denies dysuria, frequency, incontinence, hematuria, urinary retention. MUSCULOSKELETAL: denies weakness, joint pain, or bony pain SKIN: Denies rash, skin lesions, or other NEUROLOGIC: Denies weakness, headache, numbness, change in speech, confusion, seizures, incoordination. PSYCHIATRIC: No concerning psychosocial issues. 12 point review of systems is negative except for those stated above Patient History <ELIER Rogers - Last Filed: 08/02/19 15:50> Medical History ADD (attention deficit disorder) (Acute) Chicken pox (Resolved 1982) 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) Foot pain (Chronic 2013) Hemorrhoids (Chronic 2005) Open fracture of right foot (Resolved 2013) Wound of right foot (Resolved 2013) Surgical History Anesthesia (Resolved) History of laparotomy (Acute) Hx of appendectomy (Acute) Hx of hemorrhoidectomy (Acute) S/P laparoscopic cholecystectomy (Acute) Status post appendectomy (Resolved 1989) Status post hemorrhoidectomy (Resolved 2005) Status post right foot surgery (Resolved 11/2013) Status post right foot surgery (Resolved 01/2014) Family History Mother Heart disease Hypertension High cholesterol Stroke Diabetes mellitus Father Lung cancer Social History marital status: unmarried,living together household members: significant other and children occupational status: employed Smoking Status: Former smoker alcohol intake: current substance use type: does not use alcohol intake frequency: other Substance Use Type: marijuana Exam <ELIER Rogers - Last Filed: 08/02/19 15:50> Narrative Exam Narrative: GENERAL: This is a well-nourished, well-developed patient, in no acute distress HEAD: Atraumatic. Normocephalic. No temporal or scalp tenderness. EYES: Pupils equal round and reactive. Extraocular motions intact. No scleral icterus. No injection or drainage. ENT: Nose without bleeding, purulent drainage or septal hematoma. Throat without erythema, tonsillar hypertrophy or exudate. Uvula midline. Airway patent. Bilateral TMs pearly diaz. NECK: Trachea midline. No JVD or lymphadenopathy. Supple, nontender, no meningeal signs. CARDIOVASCULAR: Regular rate and rhythm without murmurs, gallops, or rubs. RESPIRATORY: Clear to auscultation. Breath sounds equal bilaterally. No wheezes, rales, or rhonchi. GASTROINTESTINAL: Abdomen soft, diffusely tender in epigastric and lower abdomen, nondistended. No hepato-splenomegaly, or palpable masses. No guarding. Active bowel sounds all 4 quadrants. No pain over McBurney's point. EXTREMITIES: No clubbing, cyanosis, or edema. No joint tenderness, effusion, or edema noted. BACK: Nontender without deformity or crepitance. No flank tenderness. NEURO: AOx3. SKIN: No rash or erythema. Initial Vital Signs Initial Vital Signs: Vital Signs Temperature 98.6 F 08/02/19 10:35 Pulse Rate 83 08/02/19 10:35 Respiratory Rate 18 08/02/19 10:35 Blood Pressure 117/77 08/02/19 10:35 Pulse Oximetry 100 08/02/19 10:35 <Geoff Gomez DO - Last Filed: 08/02/19 16:47> Initial Vital Signs Initial Vital Signs: Vital Signs Temperature 98.6 F 08/02/19 10:35 Pulse Rate 83 08/02/19 10:35 Respiratory Rate 18 08/02/19 10:35 Blood Pressure 117/77 08/02/19 10:35 Pulse Oximetry 100 08/02/19 10:35 Course <SCHUYLER Rogers-BC - Last Filed: 08/02/19 15:50> Orders Ordered: ED Orders 08/02/19 11:19 XR acute abdomen series Stat EKG-12 Lead Stat 08/02/19 11:30 Amylase Stat Complete Blood Count AUTO DIFF Stat Comprehensive Metabolic Panel Stat Influenza A and B by PCR Rapid Stat Lipase Stat Partial Thromboplastin Time Stat Prothrombin Time INR Stat Troponin & CK Cardiac Panel Stat 08/02/19 13:33 Urine Drug Screen, Rapid Stat Urine Microscopic Stat Discontinued Medications Ondansetron HCl (Zofran) 4 mg IV NOW ONE Stop: 08/02/19 11:23 Last Admin: 08/02/19 11:59 Dose: 4 mg Documented by: DWIGHT Pantoprazole Sodium (Protonix) 40 mg IV NOW ONE Stop: 08/02/19 11:23 Last Admin: 08/02/19 11:58 Dose: 40 mg Documented by: DWIGHT Vital Signs Vital signs: Vital Signs - 8 hr 08/02/19 10:35 08/02/19 12:25 Temperature 98.6 F Pulse Rate 83 64 Respiratory Rate 18 19 Blood Pressure 117/77 Blood Pressure [Left Arm] 113/79 Pulse Oximetry 100 95 <Geoff Gomez DO - Last Filed: 08/02/19 16:47> Orders Ordered: ED Orders 08/02/19 11:19 XR acute abdomen series Stat EKG-12 Lead Stat 08/02/19 11:30 Amylase Stat Complete Blood Count AUTO DIFF Stat Comprehensive Metabolic Panel Stat Influenza A and B by PCR Rapid Stat Lipase Stat Partial Thromboplastin Time Stat Prothrombin Time INR Stat Troponin & CK Cardiac Panel Stat 08/02/19 13:33 Urine Drug Screen, Rapid Stat Urine Microscopic Stat Discontinued Medications Ondansetron HCl (Zofran) 4 mg IV NOW ONE Stop: 08/02/19 11:23 Last Admin: 08/02/19 11:59 Dose: 4 mg Documented by: DWIGHT Pantoprazole Sodium (Protonix) 40 mg IV NOW ONE Stop: 08/02/19 11:23 Last Admin: 08/02/19 11:58 Dose: 40 mg Documented by: DWIGHT Vital Signs Vital signs: Vital Signs - 8 hr 08/02/19 10:35 08/02/19 12:25 Temperature 98.6 F Pulse Rate 83 64 Respiratory Rate 18 19 Blood Pressure 117/77 Blood Pressure [Left Arm] 113/79 Pulse Oximetry 100 95 MDM - Abdominal Pain <ELIER Rogers - Last Filed: 08/02/19 15:50> Lab Data Result diagrams: 08/02/19 11:30 08/02/19 11:30 Labs: Lab Results 08/02/19 08/02/19 08/02/19 Range/Units 11:30 11:30 11:30 WBC 9.6 (4.5-11.0) X10^3/uL RBC 5.14 (4.5-5.9) X10^6/uL Hgb 15.6 (13.5-17.5) g/dL Hct 45.3 (41-53) % MCV 88.2 (80-100) fL MCH 30.4 (26-34) PG MCHC 34.5 (30-36) % RDW 14.2 (11.6-14.8) % Plt Count 238 (150-400) X10^3/uL Neut % (Auto) 71.2 (50-75) % Lymph % (Auto) 17.2 L (25-40) % Blair % (Auto) 10.4 (3-14) % Eos % (Auto) 0.7 L (2-4) % Baso % (Auto) 0.5 (0-2) % Neut # (Auto) 6800 (4676-4623) /uL Lymph # (Auto) 1600 (4619-9083) /uL Blair # (Auto) 1000 H (0-900) /uL Eos # (Auto) 100 (0-450) /uL Baso # (Auto) 0 (0-100) /uL PT 12.5 (10.1-12.7) SECONDS INR 1.1 (0.9-1.3) APTT 35 (26.4-36.2) SECONDS Sodium 138 (137-145) mmol/L Potassium 4.0 (3.4-5.1) mmol/L Chloride 102 (98-107) mmol/L Carbon Dioxide 25 (22-32) mmol/L BUN 14 (9-20) mg/dL Creatinine 0.80 (0.66-1.25) mg/dL Estimated GFR > 60.0 (>60) mL/min BUN/Creatinine Ratio 17.5 (6-22) Glucose 105 H (70-100) mg/dL Calcium 9.6 (8.4-10.2) mg/dL Total Bilirubin 1.9 H (0.2-1.3) mg/dL AST 25 (17-59) IU/L ALT 24 (21-72) IU/L Alkaline Phosphatase 48 (38-126) U/L Total Creatine Kinase 133 (55-170) U/L CK-MB (CK-2) 1.07 (<2.37) ng/mL CK-MB (CK-2) Rel Index 0.8 L (1.5-5.0) % Troponin I < 0.012 (0.01-0.034) ng/mL Total Protein 7.5 (6.3-8.2) g/dL Albumin 4.7 (3.5-5.0) g/dL Globulin 2.8 (1.7-4.1) g/dL Albumin/Globulin Ratio 1.7 (1.0-2.8) Amylase 65 (30-110) U/L Lipase 42 (23-300) U/L Urine RBC (0-5/HPF) Urine WBC (0-5/HPF) Urine Bacteria (None) Urine Mucus (Negative) Ur Culture Indicated? U Morph 300 ng/mL cutoff (Negative) Ur Oxycodone Screen (Negative) Urine Methadone Screen (Negative) Ur Barbiturates Screen (Negative) U Tricyclic Antidepress (Negative) Ur Phencyclidine Scrn (Negative) Ur Amphetamines Screen (Negative) U Methamphetamines Scrn (Negative) Ur MDMA Scrn (Ecstasy) (Negative) U Benzodiazepines Scrn (Negative) Urine Cocaine Screen (Negative) U Marijuana (THC) Screen (Negative) Influenza A & B (PCR) (Negative) 08/02/19 08/02/19 08/02/19 Range/Units 11:30 13:33 13:33 WBC (4.5-11.0) X10^3/uL RBC (4.5-5.9) X10^6/uL Hgb (13.5-17.5) g/dL Hct (41-53) % MCV (80-100) fL MCH (26-34) PG MCHC (30-36) % RDW (11.6-14.8) % Plt Count (150-400) X10^3/uL Neut % (Auto) (50-75) % Lymph % (Auto) (25-40) % Blair % (Auto) (3-14) % Eos % (Auto) (2-4) % Baso % (Auto) (0-2) % Neut # (Auto) (0464-4228) /uL Lymph # (Auto) (9232-2814) /uL Blair # (Auto) (0-900) /uL Eos # (Auto) (0-450) /uL Baso # (Auto) (0-100) /uL PT (10.1-12.7) SECONDS INR (0.9-1.3) APTT (26.4-36.2) SECONDS Sodium (137-145) mmol/L Potassium (3.4-5.1) mmol/L Chloride (98-107) mmol/L Carbon Dioxide (22-32) mmol/L BUN (9-20) mg/dL Creatinine (0.66-1.25) mg/dL Estimated GFR (>60) mL/min BUN/Creatinine Ratio (6-22) Glucose (70-100) mg/dL Calcium (8.4-10.2) mg/dL Total Bilirubin (0.2-1.3) mg/dL AST (17-59) IU/L ALT (21-72) IU/L Alkaline Phosphatase (38-126) U/L Total Creatine Kinase (55-170) U/L CK-MB (CK-2) (<2.37) ng/mL CK-MB (CK-2) Rel Index (1.5-5.0) % Troponin I (0.01-0.034) ng/mL Total Protein (6.3-8.2) g/dL Albumin (3.5-5.0) g/dL Globulin (1.7-4.1) g/dL Albumin/Globulin Ratio (1.0-2.8) Amylase (30-110) U/L Lipase (23-300) U/L Urine RBC 0-1/hpf (0-5/HPF) Urine WBC 0-1/hpf (0-5/HPF) Urine Bacteria Occasional (0-1) (None) Urine Mucus 4+ H (Negative) Ur Culture Indicated? Cult not indicated U Morph 300 ng/mL cutoff Negative (Negative) Ur Oxycodone Screen Negative (Negative) Urine Methadone Screen Negative (Negative) Ur Barbiturates Screen Negative (Negative) U Tricyclic Antidepress Negative (Negative) Ur Phencyclidine Scrn Negative (Negative) Ur Amphetamines Screen Negative (Negative) U Methamphetamines Scrn Negative (Negative) Ur MDMA Scrn (Ecstasy) Negative (Negative) U Benzodiazepines Scrn Negative (Negative) Urine Cocaine Screen Negative (Negative) U Marijuana (THC) Screen Positive H (Negative) Influenza A & B (PCR) Negative (Negative) Point of care testing: Point of Care Testing Rapid Strep A Negative Urine Dip Bedside Urine Glucose Negative Bedside Urine Bilirubin - Negative Bedside Urine Ketone +/- 5 Urine Specific Adams 1.020 Bedside Urine Occult Blood +/- Bedside Urine pH 6.0 Bedside Urine Protein +/- 15 Bedside Urine Urobilinogen +/- 1mg Bedside Urine Nitrite - Negative Bedside Urine Leukocytes - Negative Esterase Imaging Data Abdominal x-ray: Radiologist's impression: [address] [address] XRay Report Signed Patient: Noble Johnson EMR#: [id number] : 1975Acct:[id number] Age/Sex: 43 / MDate of Service: 08/02/19 Loc: ED Accession Number: [id number] Procedure: XR acute abdomen series Ordering Provider: Batool Cook PROCEDURE: XR ACUTE ABDOMEN SERIES INDICATIONS: abd pain, epigastric pain TECHNIQUE: One view chest and two views of the abdomen were acquired. COMPARISON: None. FINDINGS: Surgical changes and devices: Surgical clips in the gallbladder fossa. Chest: Lungs are clear. Heart size is normal. No pleural effusions. No pneumoperitoneum. Abdomen: Bowel gas pattern is normal. No suspicious calcifications. V isualized solid organ contours appear normal. Bones: No suspicious bony lesions. IMPRESSION: 1. No acute process in the chest or abdomen. 2. Cholecystectomy change. Dictated by: Mary Ann Nelson M.D. on 08/02/2019 at 12:27 Approved by: Mary Ann Nelson M.D. on 08/02/2019 at 12:28 [facility] Narrative Medical decision making narrative: The patient is a 43-year-old male who presents with a chief complaint of stuffy nose and sore throat, which he attributes to Carafate. I discussed I do not believe that this is related especially given that he started the Carafate several weeks ago, and the sore throat stuffy nose only started 2 days ago. However he does have a very complicated medical history including possibility of an intra-abdominal abscess and his history is less than clear. The patient is rather tangential when I discussed his medication history and medical history. I did do basic abdominal lab work is the patient states he has been having abdominal pain, but it appears to be chronic abdominal pain at this point time. The patient is under pain contract. An acute abdominal x-ray helps rule out small-bowel obstruction, pneumonia etc. His abdominal exam not acute, his lab work is grossly normal. I discussed at length the importance of following up with primary care provider, and suggested that he follow-up with his manager story as previously discussed. I discussed at length return precautions bili keep down fluids, concern of chest pain or shortness of breath. Patient has no questions or concerns upon discharge and states understanding of return precautions as well as follow-up care. <Geoff Gomez, - Last Filed: 08/02/19 16:47> Lab Data Labs: Lab Results 08/02/19 08/02/19 08/02/19 Range/Units 11:30 11:30 11:30 WBC 9.6 (4.5-11.0) X10^3/uL RBC 5.14 (4.5-5.9) X10^6/uL Hgb 15.6 (13.5-17.5) g/dL Hct 45.3 (41-53) % MCV 88.2 (80-100) fL MCH 30.4 (26-34) PG MCHC 34.5 (30-36) % RDW 14.2 (11.6-14.8) % Plt Count 238 (150-400) X10^3/uL Neut % (Auto) 71.2 (50-75) % Lymph % (Auto) 17.2 L (25-40) % Blair % (Auto) 10.4 (3-14) % Eos % (Auto) 0.7 L (2-4) % Baso % (Auto) 0.5 (0-2) % Neut # (Auto) 6800 (0534-8733) /uL Lymph # (Auto) 1600 (0319-6772) /uL Blair # (Auto) 1000 H (0-900) /uL Eos # (Auto) 100 (0-450) /uL Baso # (Auto) 0 (0-100) /uL PT 12.5 (10.1-12.7) SECONDS INR 1.1 (0.9-1.3) APTT 35 (26.4-36.2) SECONDS Sodium 138 (137-145) mmol/L Potassium 4.0 (3.4-5.1) mmol/L Chloride 102 (98-107) mmol/L Carbon Dioxide 25 (22-32) mmol/L BUN 14 (9-20) mg/dL Creatinine 0.80 (0.66-1.25) mg/dL Estimated GFR > 60.0 (>60) mL/min BUN/Creatinine Ratio 17.5 (6-22) Glucose 105 H (70-100) mg/dL Calcium 9.6 (8.4-10.2) mg/dL Total Bilirubin 1.9 H (0.2-1.3) mg/dL AST 25 (17-59) IU/L ALT 24 (21-72) IU/L Alkaline Phosphatase 48 (38-126) U/L Total Creatine Kinase 133 (55-170) U/L CK-MB (CK-2) 1.07 (<2.37) ng/mL CK-MB (CK-2) Rel Index 0.8 L (1.5-5.0) % Troponin I < 0.012 (0.01-0.034) ng/mL Total Protein 7.5 (6.3-8.2) g/dL Albumin 4.7 (3.5-5.0) g/dL Globulin 2.8 (1.7-4.1) g/dL Albumin/Globulin Ratio 1.7 (1.0-2.8) Amylase 65 (30-110) U/L Lipase 42 (23-300) U/L Urine RBC (0-5/HPF) Urine WBC (0-5/HPF) Urine Bacteria (None) Urine Mucus (Negative) Ur Culture Indicated? U Morph 300 ng/mL cutoff (Negative) Ur Oxycodone Screen (Negative) Urine Methadone Screen (Negative) Ur Barbiturates Screen (Negative) U Tricyclic Antidepress (Negative) Ur Phencyclidine Scrn (Negative) Ur Amphetamines Screen (Negative) U Methamphetamines Scrn (Negative) Ur MDMA Scrn (Ecstasy) (Negative) U Benzodiazepines Scrn (Negative) Urine Cocaine Screen (Negative) U Marijuana (THC) Screen (Negative) Influenza A & B (PCR) (Negative) 08/02/19 08/02/19 08/02/19 Range/Units 11:30 13:33 13:33 WBC (4.5-11.0) X10^3/uL RBC (4.5-5.9) X10^6/uL Hgb (13.5-17.5) g/dL Hct (41-53) % MCV (80-100) fL MCH (26-34) PG MCHC (30-36) % RDW (11.6-14.8) % Plt Count (150-400) X10^3/uL Neut % (Auto) (50-75) % Lymph % (Auto) (25-40) % Blair % (Auto) (3-14) % Eos % (Auto) (2-4) % Baso % (Auto) (0-2) % Neut # (Auto) (2592-4744) /uL Lymph # (Auto) (2722-5662) /uL Blair # (Auto) (0-900) /uL Eos # (Auto) (0-450) /uL Baso # (Auto) (0-100) /uL PT (10.1-12.7) SECONDS INR (0.9-1.3) APTT (26.4-36.2) SECONDS Sodium (137-145) mmol/L Potassium (3.4-5.1) mmol/L Chloride (98-107) mmol/L Carbon Dioxide (22-32) mmol/L BUN (9-20) mg/dL Creatinine (0.66-1.25) mg/dL Estimated GFR (>60) mL/min BUN/Creatinine Ratio (6-22) Glucose (70-100) mg/dL Calcium (8.4-10.2) mg/dL Total Bilirubin (0.2-1.3) mg/dL AST (17-59) IU/L ALT (21-72) IU/L Alkaline Phosphatase (38-126) U/L Total Creatine Kinase (55-170) U/L CK-MB (CK-2) (<2.37) ng/mL CK-MB (CK-2) Rel Index (1.5-5.0) % Troponin I (0.01-0.034) ng/mL Total Protein (6.3-8.2) g/dL Albumin (3.5-5.0) g/dL Globulin (1.7-4.1) g/dL Albumin/Globulin Ratio (1.0-2.8) Amylase (30-110) U/L Lipase (23-300) U/L Urine RBC 0-1/hpf (0-5/HPF) Urine WBC 0-1/hpf (0-5/HPF) Urine Bacteria Occasional (0-1) (None) Urine Mucus 4+ H (Negative) Ur Culture Indicated? Cult not indicated U Morph 300 ng/mL cutoff Negative (Negative) Ur Oxycodone Screen Negative (Negative) Urine Methadone Screen Negative (Negative) Ur Barbiturates Screen Negative (Negative) U Tricyclic Antidepress Negative (Negative) Ur Phencyclidine Scrn Negative (Negative) Ur Amphetamines Screen Negative (Negative) U Methamphetamines Scrn Negative (Negative) Ur MDMA Scrn (Ecstasy) Negative (Negative) U Benzodiazepines Scrn Negative (Negative) Urine Cocaine Screen Negative (Negative) U Marijuana (THC) Screen Positive H (Negative) Influenza A & B (PCR) Negative (Negative) Point of care testing: Point of Care Testing Rapid Strep A Negative Urine Dip Bedside Urine Glucose Negative Bedside Urine Bilirubin - Negative Bedside Urine Ketone +/- 5 Urine Specific Adams 1.020 Bedside Urine Occult Blood +/- Bedside Urine pH 6.0 Bedside Urine Protein +/- 15 Bedside Urine Urobilinogen +/- 1mg Bedside Urine Nitrite - Negative Bedside Urine Leukocytes - Negative Esterase Discharge Plan Departure Patient Disposition: Home Clinical Impression: Upper respiratory infection Qualifiers: URI type: unspecified viral URI Qualified Code(s): J06.9 - Acute upper respiratory infection, unspecified Abdominal pain Qualifiers: Abdominal location: generalized Qualified Code(s): R10.84 - Generalized abdominal pain Discharge Date/Time: 08/02/19 14:35 Instructions: DI for Viral Upper Respiratory Infection -- Adult, DI for Abdominal Pain-Adult, DI for Viral Pharyngitis Activity Restrictions/Additional Instructions: Today you came into the emergency department for sore throat, stuffy nose and th ought it might be a action to your recent medication changes. Given current research, I do not believe that your stuffy nose and sore throat are caused by Carafate. Please use supportive care, push fluids and rest, try [id number] throat lozenges and sleeping with a humidifier. Please follow up with your primary care provider in the next few days. Please come back to the emergency department for any acute concerns such as concern of heart attack or stroke Prescriptions: No Action docusate sodium [Colace] 100 mg capsule 100 mg PO BID Qty: 60 RF: 3 dextroamphetamine-amphetamine 20 mg tablet 20 mg PO BID Qty: 60 RF: 0 sucralfate [Carafate] 1 gram tablet 1 gram PO QACHS Qty: 120 RF: 3 hydroxyzine pamoate 25 mg capsule 25 - 50 mg PO QID PRN (Reason: anxiety) RF: 0 oxycodone 10 mg tablet 10 mg PO Q4-6H MDD 8 tabs per day PRN (Reason: pain) RF: 0 Referrals: Attila Santos MD [Primary Care Provider] -
[2019-08-02 11:58] LABS: Add Manual Diff / Slide Review NO; Basophils Absolute Auto 0 /uL (0-100); Basophils Percent Auto 0.5 % (0-2); Eosinophils Absolute Auto 100 /uL (0-450); Eosinophils Percent Auto 0.7 % (2-4); Hematocrit 45.3 % (41-53); Hemoglobin 15.6 g/dL (13.5-17.5); Lymphocytes Absolute Auto 1600 /uL (1100-4500); Lymphocytes Percent Auto 17.2 % (25-40); Mean Corpuscular HGB Conc 34.5 % (30-36); Mean Corpuscular Hemoglobin 30.4 PG (26-34); Mean Corpuscular Volume 88.2 fL (80-100); Monocytes Absolute Auto 1000 /uL (0-900); Monocytes Percent Auto 10.4 % (3-14); Neutrophils Absolute Auto 6800 /uL (1500-7000); Neutrophils Percent Auto 71.2 % (50-75); Platelet Count 238 X10^3/uL (150-400); Red Blood Cell Count 5.14 X10^6/uL (4.5-5.9); Red Cell Distribution Width 14.2 % (11.6-14.8); White Blood Cell Count 9.6 X10^3/uL (4.5-11.0)
[2019-08-02] MEDS: PANTOPRAZOLE 40 MG VIAL IV (11:58)
[2019-08-02] MEDS: ONDANSETRON 4 MG/2 ML INJ IV (11:59)
[2019-08-02 12:02] LABS: INR 1.1 (0.9-1.3); Prothrombin Time 12.5 SECONDS (10.1-12.7)
[2019-08-02 12:05] LABS: PTT Partial Thromboplastin Tim 35 SECONDS (26.4-36.2)
[2019-08-02 12:08] LABS: Alanine Aminotransferase 24 IU/L (21-72); Albumin 4.7 g/dL (3.5-5.0); Albumin Globulin Ratio 1.7 (1.0-2.8); Alkaline Phosphatase 48 U/L (38-126); Amylase 65 U/L (30-110); Aspartate Aminotransferase 25 IU/L (17-59); BUN Creatinine Ratio 17.5 (6-22); Bilirubin Total 1.9 mg/dL (0.2-1.3); Blood Urea Nitrogen 14 mg/dL (9-20); Calcium 9.6 mg/dL (8.4-10.2); Carbon Dioxide 25 mmol/L (22-32); Chloride 102 mmol/L (98-107); Creatine Kinase 133 U/L (55-170); Estimated Glomerular Filt Rate > 60.0 mL/min (>60); Globulin 2.8 g/dL (1.7-4.1); Glucose 105 mg/dL (70-100); HEMOLYSIS < 15 (0-50); Influenza A and B by PCR Rapid Negative (Negative); Lipase 42 U/L (23-300); Sodium 138 mmol/L (137-145); Total Protein 7.5 g/dL (6.3-8.2)
[2019-08-02 12:19] LABS: Troponin I < 0.012 ng/mL (0.01-0.034)
[2019-08-02 12:23] LABS: CKMB % Relative Index 0.8 % (1.5-5.0); Creatine Kinase MB 1.07 ng/mL (<2.37)
[2019-08-02 12:25] VITALS: BP 113/79; PULSE 64; RESP 19; O2SAT 95
[2019-08-02 13:41] LABS: UR Morphine/Opiate cutoff 300 Negative (Negative); Ur Creatinine Normal (Normal); Ur Specific Gravity Normal (Normal); Urine Amphetamines Negative (Negative); Urine Cocaine Negative (Negative); Urine Tetrahydrocannabinol Positive (Negative); Urine pH Normal (Normal)
[2019-08-02 13:42] LABS: Urine Barbiturates Negative (Negative); Urine Benzodiazepines Negative (Negative); Urine MDMA Negative (Negative); Urine Methadone Negative (Negative); Urine Methamphetamines Negative (Negative); Urine Phencyclidine Negative (Negative); Urine Tricyclic Antidepressant Negative (Negative)
[2019-08-02 13:43] LABS: Urine Oxycodone Negative (Negative)
[2019-08-02 13:48] LABS: RBC Urine 0-1/HPF (0-5/HPF); WBC Urine 0-1/HPF (0-5/HPF)
[2019-08-02 13:49] LABS: Bacteria Urine Occasional (0-1); Culture Indicated Urine Cult Not Indicated; Mucus Urine 4+ (Negative)
== END 2019-08-02 14:35 | disposition home or self-care (01) ==
PROVIDERS: Emergency Provider Nurse Practitioner Family; PCP Family Medicine
DX: J06.9 Acute upper respiratory infection, unspecified (principal); R10.84 Generalized abdominal pain
CPT/HCPCS: 36415; 74022; 80053; 80305; 81003; 81015; 82150; 82550; 82553; 83690; 84484; 85025; 85610; 85730; 87502; 87880; 93005; 96374; 96375; 99283; 99285; C9113; J2405

== ENCOUNTER → 2020-09-10 12:59 | Outpatient (CLI) | payer OTHER, MEDICAID, SELFPAY ==
[2019-05-31 09:16] VITALS: BMI 22.8
[2020-09-10 13:32] LABS: Hemoglobin A1C% w Est Avg Glu 6.3 % (4.0-6.0)
[2020-09-10 13:35] LABS: BUN Creatinine Ratio 19.5 (6-22); Blood Urea Nitrogen 16 mg/dL (9-20); Calcium 9.4 mg/dL (8.4-10.2); Carbon Dioxide 25 mmol/L (22-32); Chloride 108 mmol/L (98-107); Estimated Glomerular Filt Rate > 60.0 mL/min (>60); Glucose 107 mg/dL (70-100); HEMOLYSIS < 15 (0-50); Sodium 137 mmol/L (137-145)
[2020-09-10 14:06] LABS: Thyroid Stimulating Hormone 2.26 uIU/mL (0.47-4.68)
== END ==
PROVIDERS: PCP Family Medicine; Referring Provider Family Medicine; Visit Provider Family Medicine
DX: G62.9 Polyneuropathy, unspecified (principal); R53.83 Other fatigue; R73.09 Other abnormal glucose
CPT/HCPCS: 36415; 80048; 83036; 84443

== ENCOUNTER → 2020-12-03 07:50 | Outpatient (CLI) | payer OTHER, MEDICAID, SELFPAY ==
[2019-05-31 09:16] VITALS: BMI 22.8
--- NOTE | 2020-12-03 07:52 | DI.US.S_ITS ---
PROCEDURE: US SCROTUM INDICATIONS: LEFT TESTICULAR MASS TECHNIQUE: Real-time scanning was performed of the scrotum and testicles, with image documentation. Color and pulse Doppler interrogation was performed of both testicles. COMPARISON: [facility], CT, CT ABDOMEN PELVIS W CON, 09/14/2018, 14:40. FINDINGS: Right: Testicle is normal in size at 4.7 x 2.8 x 2.7 cm, and homogenous in echotexture. Epididymis is normal in overall size and morphology. 4 mm right epididymal cyst. Small loculated hydrocele. No varicocele.. Overlying scrotal skin is normal in thickness. Left: Testicle is normal in size at 4.8 x 3.0 x 2.3 cm, and homogeneous in echotexture. Epididymis is normal in overall size and morphology. Small loculated hydrocele. No varicocele.. Overlying scrotal skin is normal in thickness. Doppler: Color and pulse Doppler demonstrate normal and symmetric arterial flow in both testicles. IMPRESSION: 1. Normal appearance of testicles bilaterally. 2. Small bilateral loculated hydroceles. 3. Right epididymal cyst. Dictated by: Delmar BURROUGHS Interpreted: Deven Morgan MD on 12/03/2020 at 9:40 Approved by: Deven Morgan M.D. on 12/03/2020 at 11:12
== END ==
PROVIDERS: PCP Student in an Organized Health Care Education/Training Program; Referring Provider Student in an Organized Health Care Education/Training Program; Visit Provider Student in an Organized Health Care Education/Training Program
DX: N50.89 Other specified disorders of the male genital organs (principal); N43.3 Hydrocele, unspecified; N50.3 Cyst of epididymis
CPT/HCPCS: 76870

== ENCOUNTER → 2020-12-17 12:33 | Outpatient (CLI) | payer OTHER, MEDICAID, SELFPAY ==
[2019-05-31 09:16] VITALS: BMI 22.8
[2020-12-17 13:06] LABS: Hemoglobin A1C% w Est Avg Glu 5.8 % (4.0-6.0)
[2020-12-26 14:34] LABS: Fecal Immunochemical Test Negative (Negative)
== END ==
PROVIDERS: PCP Student in an Organized Health Care Education/Training Program; Referring Provider Student in an Organized Health Care Education/Training Program; Visit Provider Student in an Organized Health Care Education/Training Program
DX: R73.9 Hyperglycemia, unspecified (principal); T38.0X5A Adverse effect of glucocorticoids and synthetic analogues, initial encounter
CPT/HCPCS: 36415; 83036

== ENCOUNTER → 2020-12-17 13:13 | Outpatient (CLI) | payer OTHER, MEDICAID, SELFPAY ==
[2019-05-31 09:16] VITALS: BMI 22.8
--- NOTE | 2020-12-17 13:14 | DI.MRI.S_ITS ---
PROCEDURE: MR CERVICAL SPINE WO CON INDICATIONS: Bilateral upper extremity parasthesia with motor involvement TECHNIQUE: Noncontrast sagittal T1 spin echo and T2 fast spin echo, sagittal STIR, foraminal oblique sagittal T2 fast spin echo, and axial gradient echo or T2 fast spin echo through the cervical spine. COMPARISON: None. FINDINGS: Image quality: Excellent. Alignment and Curvature: Normal configuration of the craniocervical junction. Normal cervical spine vertebral body height and alignment. Bone Marrow: No suspicious focal marrow signal abnormality or bone marrow edema. Spinal Cord: No cord signal abnormality or syrinx. No inferior cerebellar tonsillar ectopia. Paraspinous Soft Tissues: No paravertebral masses. Prevertebral soft tissues are normal in thickness. C2-C3: Normal appearance. C3-C4: Normal appearance. C4-C5: Normal appearance. C5-C6: Normal appearance. C6-C7: Normal appearance. C7-T1: Normal appearance. IMPRESSION: Normal exam. No degenerative changes, spinal canal stenosis, or neural foraminal stenosis. No cord signal abnormality. Dictated by: Davy Miller M.D. on 12/17/2020 at 14:22 Approved by: Davy Miller M.D. on 12/17/2020 at 14:34
== END ==
PROVIDERS: PCP Student in an Organized Health Care Education/Training Program; Referring Provider Student in an Organized Health Care Education/Training Program; Visit Provider Student in an Organized Health Care Education/Training Program
DX: R20.2 Paresthesia of skin (principal); R29.898 Other symptoms and signs involving the musculoskeletal system; R73.9 Hyperglycemia, unspecified; T38.0X5A Adverse effect of glucocorticoids and synthetic analogues, initial encounter
CPT/HCPCS: 36415; 72141; 82274; 83036

== ENCOUNTER → 2020-12-31 07:57 | Outpatient (CLI) | payer OTHER, MEDICAID, SELFPAY ==
[2019-05-31 09:16] VITALS: BMI 22.8
--- NOTE | 2020-12-31 07:59 | DI.RAD.S_ITS ---
PROCEDURE: FL UPPER GI SERIES INDICATIONS: Gastroesophageal reflux diseasse, unspecified esophagitis present COMPARISON: [facility], CT, CT GUIDED CATHETER PLACEMENT, 08/20/2018, 11:04. [facility], NM, NM HIDA NO EJECTION FRACTION, 08/13/2018, 11:29. [facility], CT, CT ABDOMEN PELVIS WITH CONTRAST, 08/11/2018, 18:18. FINDINGS: KUB: Preprocedural target trimmer film demonstrates a normal bowel gas pattern. No suspicious abdominal calcifications. Visualized solid organ contours appear normal. Bony structures appear unremarkable. Esophagus: Esophageal mucosa is normal on air-contrast views. On single-contrast views, there is normal esophageal peristalsis. No strictures, extrinsic mass effects, or diverticula. No hiatal hernia or elicited gastroesophageal reflux. Stomach: The stomach is normally distensible, with normal rugal fold thickness. No mucosal masses or ulcers. Pylorus and duodenal bulb appear normal in morphology. Duodenal folds are normal in thickness as well. IMPRESSION: Normal examination, no evidence of reflux, esophagitis, peptic ulcer disease, or mass lesion. Dictated by: Manuel Reynolds M.D. on 12/31/2020 at 13:19 Approved by: Manuel Reynolds M.D. on 12/31/2020 at 13:23
== END ==
PROVIDERS: PCP Student in an Organized Health Care Education/Training Program; Referring Provider Nurse Practitioner Acute Care; Visit Provider Nurse Practitioner Acute Care
DX: K21.9 Gastro-esophageal reflux disease without esophagitis (principal)
CPT/HCPCS: 74240

== ENCOUNTER → 2021-10-17 12:09 | Outpatient (CLI) | payer OTHER, MEDICAID, SELFPAY ==
[2019-05-31 09:16] VITALS: BMI 22.8
[2021-10-17 21:06] LABS: Urine N gonorrhoeae NOT DETECTED
[2021-10-17 21:12] LABS: Urine Chlamydia NOT DETECTED
== END ==
PROVIDERS: PCP Student in an Organized Health Care Education/Training Program; Visit Provider Nurse Practitioner Family
DX: R30.0 Dysuria (principal)
CPT/HCPCS: 81002; 87086; 87491; 87591

== ENCOUNTER → 2021-11-06 09:06 | Outpatient (CLI) | payer OTHER, MEDICAID, SELFPAY ==
[2019-05-31 09:16] VITALS: BMI 22.8
--- NOTE | 2021-11-06 09:07 | DI.US.S_ITS ---
PROCEDURE: US SCROTUM INDICATIONS: Scrotal pain TECHNIQUE: Real-time scanning was performed of the scrotum and testicles, with image documentation. Color and pulse Doppler interrogation was performed of both testicles. COMPARISON: [facility], , US SCROTUM, 12/03/2020, 8:35. FINDINGS: Right: Testicle is normal in size at 4.5 x 3.0 x 2.5 cm, and homogenous in echotexture. Epididymis is normal in overall size . Multiple tiny right epididymal head cysts are seen measures up to 5 x 4 x 3 mm in size. No hydrocele or varicoceles. Left: Testicle is normal in size at 4.6 x 2.7 x 2.6 cm, and homogeneous in echotexture. Epididymis is normal in overall size and morphology. No hydrocele or varicoceles. Doppler: Color and pulse Doppler demonstrate increased arterial flow in right testes. Normal arterial flow is seen in left testes. Septations are noted in bilateral inferior scrotal sac with internal vascularity. IMPRESSION: 1. Increased arterial flow in right testes which may represent orchitis. No evidence of testicular torsion. No discrete testicular lesion. 2. Right epididymal head cysts as above. 3. No hydrocele or varicoceles. Nonspecific septations seen in bilateral inferior scrotal sacs without discrete scrotal wall mass or significant thickening. Dictated by: Felipe Mckoy M.D. on 11/06/2021 at 10:03 Approved by: Felipe Mckoy M.D. on 11/06/2021 at 10:06
== END ==
PROVIDERS: PCP Student in an Organized Health Care Education/Training Program; Referring Provider Student in an Organized Health Care Education/Training Program; Visit Provider Student in an Organized Health Care Education/Training Program
DX: N50.82 Scrotal pain (principal); N50.3 Cyst of epididymis
CPT/HCPCS: 76870

== ENCOUNTER 2021-12-25 17:52 | Emergency (ER) | payer OTHER, MEDICAID, SELFPAY ==
[2019-05-31 09:16] VITALS: BMI 22.8
[2021-12-25 18:01] VITALS: BP 135/78; PULSE 94; RESP 18; TEMP 37; O2SAT 98
[2021-12-25] MEDS: TET,DIPH,PERTUSS(ACELL),VAC/PF 0.5 ML SYRINGE IM (18:26)
--- NOTE | 2021-12-25 19:41 | ED_ITS ---
HPI - Skin/Abscess/Foreign Bdy General Chief complaint: Skin/Abscess/Foreign Body Stated complaint: wants rt thumbnail removed Time Seen by Provider: 12/25/21 19:16 Source: patient Mode of arrival: Ambulatory History of Present Illness HPI narrative: Patient here for injury to the right thumb. 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 He states 2 days ago he did bump his right thumb with us small hammer but denies any problems with that injury. However today he was using a tool and it bumped against his left thumbnail knocking it out of place. The medial aspect of the thumb nail has lifted up out of the nail bed. Full active range of motion of the MCP and IP joint. Skin is intact. Light touch intact to thumb. Related Data Previous Rx's Medication Instructions Recorded buspirone 10 mg tablet 10 mg PO BID #60 tab 11/25/21 dextroamphetamine-amphetamine 10 10 mg PO DAILY #30 tab 12/18/21 mg tablet (Adderall) dextroamphetamine-amphetamine ER 20 mg PO DAILY #30 cap 12/18/21 20 mg 24hr capsule,extend release (Adderall XR) oxycodone 10 mg tablet 10 mg PO QID PRN #120 tab 12/18/21 cephalexin 500 mg capsule 500 mg PO QID #20 cap 12/25/21 Allergies Allergy/AdvReac Type Severity Reaction Status Date / Time esomeprazole AdvReac Severe Vomiting, Verified 10/29/21 09:20 rash famotidine AdvReac Severe vomiting Verified 10/29/21 09:20 escitalopram AdvReac Intermediate Abdominal Verified 10/29/21 09:20 Pain, anorexia Review of Systems Review of Systems Narrative: GENERAL: Denies chills, fatigue, malaise, fever, sweats. HEENT: Denies sinus pain, ear pain, sore throat RESPIRATORY: Denies dyspnea, cough CARDIOVASCULAR: Denies chest pain, palpitations GASTROINTESTINAL: Denies nausea, vomiting, abdominal pain : Denies dysuria, frequency, hematuria MUSCULOSKELETAL: denies muscle or bony pain SKIN: Denies rash, skin lesions NEUROLOGIC: Denies weakness, numbness ROS Unobtainable: All systems reviewed & are unremarkable except as noted in HPI and below Patient History Medical History ADD (attention deficit disorder) Chicken pox (1982) Chronic pain after traumatic injury Foot pain (2013) Hemorrhoids (2005) Intra-abdominal abscess Open fracture of right foot (2013) Wound of right foot (2013) Surgical History Anesthesia History of laparotomy Hx of appendectomy Hx of hemorrhoidectomy S/P laparoscopic cholecystectomy Status post appendectomy (1989) Status post hemorrhoidectomy (2005) Status post right foot surgery (11/2013) Status post right foot surgery (01/2014) Family History Mother Heart disease Hypertension High cholesterol Stroke Diabetes mellitus Father Lung cancer Social History marital status: unmarried,living together household members: significant other and children occupational status: employed Smoking Status: Former smoker alcohol intake: current substance use type: does not use Smoking Status: Former smoker alcohol intake frequency: other Substance Use Type: marijuana Exam Narrative Exam Narrative: GENERAL: in no distress, not toxic not dyspneic HEAD: Normocephalic. EYES: Pupils equal round No scleral icterus. EXTREMITIES: No gross deformities. Examination right thumb. The medial aspect of the thumbnail on the right is lifted up and over the cuticle. Skin otherwise intact. Full active range of motion of the IP and MCP joints. No bruising. No discharge. No bleeding. No foreign body seen. NEURO: AOx4. SKIN: Warm and dry PSYCH: Not anxious, is cooperative Initial Vital Signs Initial Vital Signs: Vital Signs Temperature 98.6 F 12/25/21 18:01 Pulse Rate 94 H 12/25/21 18:01 Respiratory Rate 18 12/25/21 18:01 Blood Pressure 135/78 12/25/21 18:01 Pulse Oximetry 98 12/25/21 18:01 [place] [facility] [place] Procedure: Finger digit block with 2% lidocaine with epinephrine. Repositioning thumb nail, right thumb Location: Right thumbnail Technique/Description of procedure performed: 2% lidocaine with epinephrine was used to digital block the rightthumb. Thumb was cleaned with Hibiclens and normal saline. 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 No active bleeding. Patient tolerated very well. Full active range of motion at the IP and IP joint before and after procedure. Neurovascularly intact. Aluminum thumb cage splint was used to protect thumb. Course Course Course Narrative: No new issues during course of stay. Orders Ordered: Discontinued Medications Cephalexin HCl (Cephalexin 250 Mg Capsule) 500 mg PO NOW ONE Stop: 12/25/21 19:41 Last Admin: 12/25/21 19:50 Dose: 500 mg Documented by: SHERRY Diphtheria/Tetanus/Acell Pertussis (Tet,Diph,Pertuss(Acell),Vac/Pf 0.5 Ml Syringe) 0.5 ml IM .ONCE ONE Stop: 12/25/21 18:18 Last Admin: 12/25/21 18:26 Dose: 0.5 ml Documented by: JORGE Reevaluation(s) Reevaluation #1: Patient tolerated procedure very well. Return precautions reviewed with him Time: 19:52 Vital Signs Vital signs: Vital Signs - 8 hr 12/25/21 18:01 Temperature 98.6 F Pulse Rate 94 H Respiratory Rate 18 Blood Pressure 135/78 Pulse Oximetry 98 MDM - Skin/Abscess/Foreign Bdy Differential Diagnosis Differential diagnosis: Likely other (Nail avulsion) MDM Narrative Medical decision making narrative: Appropriate for discharge home. No imaging indicated. Patient denies any bony pain. Has full active range of motion. Neurovascularly intact. Return precautions reviewed with him. He does have a primary to follow up with. Tetanus shot given here. Low suspicion for foreign body at this time. Antibiotics provided. Discharge Plan Departure Patient Disposition: Home Clinical Impression: Fingernail avulsion, partial Instructions: DI for Wound Infection Activity Restrictions/Additional Instructions: See family doctor in a week for recheck of your finger. Clean your finger daily with warm soap and water and then apply thin layer of topical antibiotic. We have attempted to reposition your fingernail however there is a chance that it may not take and may fall out. Use provided finger guard to protect your thumb. Return if worse if any questions or concerns Prescriptions: New cephalexin 500 mg capsule 500 mg PO QID Qty: 20 0RF No Action buspirone 10 mg tablet 10 mg PO BID Qty: 60 0RF Rx Instructions: Trial script oxycodone 10 mg tablet 10 mg PO QID PRN (Reason: pain) Qty: 120 0RF dextroamphetamine-amphetamine [Adderall XR] 20 mg capsule,extended release 24hr 20 mg PO DAILY Qty: 30 0RF dextroamphetamine-amphetamine [Adderall] 10 mg tablet 10 mg PO DAILY Qty: 30 0RF Referrals: Fili Soares MD [Primary Care Provider] -
[2021-12-25] MEDS: cephALEXin 250 MG CAPSULE 500 MG PO (19:50)
== END 2021-12-25 19:50 | disposition home or self-care (01) ==
PROVIDERS: Emergency Provider Emergency Medicine; PCP Student in an Organized Health Care Education/Training Program
DX: S61.101A Unspecified open wound of right thumb with damage to nail, initial encounter (principal); W22.8XXA Striking against or struck by other objects, initial encounter; Z23 Encounter for immunization
CPT/HCPCS: 64450; 90471; 99283; 90715

== ENCOUNTER → 2021-12-30 14:27 | Outpatient (CLI) | payer OTHER, MEDICAID, SELFPAY ==
[2019-05-31 09:16] VITALS: BMI 22.8
--- NOTE | 2021-12-30 14:29 | DI.RAD.S_ITS ---
PROCEDURE: XR TIBIA FUBULA RT 2V INDICATIONS: horse stepped on R mid-lower lateral leg TECHNIQUE: 2 views of the tibia and fibula were acquired. COMPARISON: None. FINDINGS: Bones: No fractures or dislocations. No suspicious bony lesions. Soft tissues: No suspicious soft tissue calcifications or masses. IMPRESSION: No visualized acute fracture or dislocation. However, if clinical concern and/or pain persist, short interval imaging followup in 7-10 days is recommended, as occult injury cannot be definitively excluded. Dictated by: Richa Lucas M.D. on 12/30/2021 at 16:15 Approved by: Richa Lucas M.D. on 12/30/2021 at 16:16
== END ==
PROVIDERS: PCP Student in an Organized Health Care Education/Training Program; Referring Provider Student in an Organized Health Care Education/Training Program; Visit Provider Student in an Organized Health Care Education/Training Program
DX: S89.91XA Unspecified injury of right lower leg, initial encounter (principal); W55.19XA Other contact with horse, initial encounter
CPT/HCPCS: 73590

== ENCOUNTER 2022-02-13 13:40 | Day surgery (SDC) | payer OTHER, MEDICAID, SELFPAY ==
[2019-05-31 09:16] VITALS: BMI 22.8
[2022-02-13] VITALS (7 sets, daily range): BP systolic 87–123; BP diastolic 54–88; PULSE 44–68; RESP 10–17; TEMP 36.7; O2SAT 97–100; BMI 23.7
--- NOTE | 2022-02-13 | PATH_ITS ---
[facility] Accession Number: [id number] . 01 Material submitted: . PART A: colon - ASCENDING COLON POLYP PART B: colon - TRANSVERSE POLYP . 02 Diagnosis: A. Ascending Colon, Polyp, Biopsy: Tubular adenoma. . B. Transverse, Colon, Polyp, Biopsy: Tubular adenoma. MRV 02/18/2022 1023 Local . 02 Electronically signed: . Kaity Zaidi MD, Pathologist NPI- [id number] . 01 Gross description: . Part A: ASCENDING COLON POLYP: Received in formalin is 1 fragment(s) of knox, soft tissue measuring 0.2 x 0.2 x 0.1 cm submitted entirely in 1 cassette(s) Part B: TRANSVERSE POLYP: Received in formalin is 1 fragment(s) of knox, soft tissue measuring 0.4 x 0.2 x 0.1 cm submitted entirely in 1 cassette(s) /CPE 02/14/2022 0819 Local . 02 Pathologist provided ICD-10: D12.2, D12.3 . 02 CPT . 255624, 246051 Specimen Comment: A courtesy copy of this report has been sent to [phone] Performed at: 01 [facility] [address], [place], [place] [id number] MD Emir Stephens MD Phone: [phone] Performed at: 02 [facility] [address] [place], [place] [id number] MD Kaity Zaidi MD Phone: [phone]
[2022-02-13] MEDS: LACTATED RINGERS 1,000 ML 84 ML IV ×2 (14:05→17:14)
[2022-02-13 14:15] LABS: COVID19 -Nasal RAPID Negative (Negative)
--- NOTE | 2022-02-13 15:14 | PM.PREOP ---
Pre-operative Note COVID-19 COVID-19 status: Negative Result date/Date tested (Pos, Neg/Pending): 02/12/22 Interval Note History & Physical reviewed/Exam performed by Physician: Yes Changes to H&P: No ASA Class (for procedural sedation): II
[2022-02-13] MEDS: SODIUM CHLORIDE 0.9% 1,000 ML 84 ML IV (15:47)
[2022-02-13] MEDS: fentaNYL 250 MCG/5 ML INJ 225 MCG IV (15:48)
[2022-02-13] MEDS: MIDAZOLAM 5 MG/5 ML VIAL 10 MG IV (15:51)
--- NOTE | 2022-02-13 16:00 | PM.OP.COLON ---
Operative Date/Time/Diagnoses Date of procedure: 02/13/22 Time of procedure: 16:00 Pre-op diagnosis: Colon cancer screening Post-op diagnosis: same Procedure & Clinicians Study performed: Colonoscopy Same procedure as scheduled: Yes Procedure Notes Procedure in detail: Surgeon: Benito Pastor MD Procedure: The patient was brought to the endoscopy suite, placed in left lateral decubitus position. The patient was connected to monitoring devices. A time-out was performed. Sedation was administered. Once the patient was adequately sedated, a digital rectal exam was performed and was normal. The scope was then inserted and advanced to the cecum where the appendiceal orifice was identified and photographed. The scope was then slowly withdrawn over greater than 6 minutes. Mucosa was thoroughly inspected. There was a 6-7 mm polyp in the ascending colon removed with cold snare. There was a 60 mm polyp in the transverse colon removed with cold snare. The scope was retroflexed in the rectum. No abnormalities were noted. The scope was straightened and removed. The patient was awakened and brought to recovery. Versed: 10 mg Fentanyl: 225 mcg EBL: 10 mL Findings: Ascending polyp and transverse colon polyps both about 6 mm. Scope withdrawal time: 21 Sedation minutes: 34 Post-procedure Recommendations: Will call with biopsy results
--- NOTE | 2022-02-13 16:46 | SUR.PHASEI ---
Patient still in recovery phase I and HR noted to be 38-45 at times; asymptomatic; Patient states that his HR has never been this low. Called Dr Pastor and left message regarding bradycardia. EKG ordered in the interim. Notified respiratory therapy.
--- NOTE | 2022-02-13 17:10 | SUR.PHASEI ---
EKG completed; EKG shown to Dr Garcia, anesthesiologist; verbal order received for Robinul for 1 mg IV;
--- NOTE | 2022-02-13 17:13 | SUR.PHASEI ---
EKG shown to Dr Garcia, anesthesiology; emory ZHU ordered for bradycardia.Patient remains on nurse monitoring and pads.
[2022-02-13] MEDS: GLYCOPYRROLATE 0.4 MG/2 ML VIAL IV (17:14)
--- NOTE | 2022-02-13 17:37 | SUR.PHASEII ---
1730 Dr Pastor called and Dr Mohan for a HR 37-42 sustained for most of phase I , EKG done SBrady, and VO from Dr Mohan to give glycoprrolate 0.4 mg IVP. Pt HR improved to SR 60's sustained .
== END 2022-02-13 17:51 | disposition home or self-care (01) ==
PROVIDERS: PCP Student in an Organized Health Care Education/Training Program; Referring Provider Surgery; Visit Provider Surgery
PROC: 0DJD8ZZ Inspection of Lower Intestinal Tract, Via Natural or Artificial Opening Endoscopic (ICD-10-PCS; CPT 45378; principal; 2022-02-13 15:15)
DX: Z12.11 Encounter for screening for malignant neoplasm of colon (principal); Z20.822 Contact with and (suspected) exposure to COVID-19; D12.3 Benign neoplasm of transverse colon; D12.2 Benign neoplasm of ascending colon
CPT/HCPCS: 45385; 87635; 93005; 93010; 99152; 99153; J2250; J3010

== ENCOUNTER → 2022-09-10 09:52 | Outpatient (CLI) | payer OTHER, MEDICAID, SELFPAY ==
[2019-05-31 09:16] VITALS: BMI 22.8
[2022-09-10 11:16] LABS: Add Manual Diff / Slide Review NO; Basophils Absolute Auto 0 /uL (0-100); Basophils Percent Auto 0.5 % (0-2); Eosinophils Absolute Auto 100 /uL (0-450); Eosinophils Percent Auto 0.7 % (2-4); Hematocrit 47.5 % (41-53); Lymphocytes Absolute Auto 2000 /uL (1100-4500); Lymphocytes Percent Auto 25.1 % (25-40); Mean Corpuscular HGB Conc 33.7 % (30-36); Mean Corpuscular Hemoglobin 29.9 PG (26-34); Mean Corpuscular Volume 88.6 fL (80-100); Monocytes Absolute Auto 400 /uL (0-900); Monocytes Percent Auto 5.6 % (3-14); Neutrophils Absolute Auto 5400 /uL (1500-7000); Neutrophils Percent Auto 68.1 % (50-75); Platelet Count 269 X10^3/uL (150-400); Red Blood Cell Count 5.36 X10^6/uL (4.5-5.9); Red Cell Distribution Width 14.6 % (11.6-14.8)
[2022-09-10 11:39] LABS: Erythrocyte Sedimentation Rate 1 MM/HR (0-15)
[2022-09-10 12:06] LABS: Alanine Aminotransferase 25 IU/L (<50); Albumin 4.9 g/dL (3.5-5.0); Albumin Globulin Ratio 1.7 (1.0-2.8); Alkaline Phosphatase 62 U/L (38-126); Aspartate Aminotransferase 24 IU/L (17-59); BUN Creatinine Ratio 17.9 (6-22); Bilirubin Total 2.5 mg/dL (0.2-1.3); Blood Urea Nitrogen 14 mg/dL (9-20); C-Reactive Protein Quant < 0.5 mg/dL (<1.0); Calcium 9.8 mg/dL (8.4-10.2); Carbon Dioxide 27 mmol/L (22-32); Chloride 100 mmol/L (98-107); Estimated Glomerular Filt Rate > 60 mL/min (>60); Globulin 2.9 g/dL (1.7-4.1); Glucose 109 mg/dL (70-100); HEMOLYSIS < 15 (0-50); Lipase 310 U/L (23-300); Potassium 4.7 mmol/L (3.4-5.1); Sodium 139 mmol/L (137-145); Total Protein 7.8 g/dL (6.3-8.2)
[2022-09-10 12:12] LABS: Prealbumin 29.6 mg/dL (17.6-36.0)
[2022-09-10 12:23] LABS: TSH w/ Reflex to FT4 1.34 uIU/mL (0.47-4.68)
[2022-09-11 16:16] LABS: HIV 1 & 2 Ab/Ag 4th Gen Combo NEGATIVE (NEGATIVE)
[2022-09-11 18:14] LABS: Tissue Transglutaminase IgA <2 U/mL (0-3); Tissue Transglutaminase IgG <2 U/mL (0-5)
== END ==
PROVIDERS: PCP Student in an Organized Health Care Education/Training Program; Referring Provider Student in an Organized Health Care Education/Training Program; Visit Provider Student in an Organized Health Care Education/Training Program
DX: E46 Unspecified protein-calorie malnutrition (principal); K52.9 Noninfective gastroenteritis and colitis, unspecified; R63.4 Abnormal weight loss
CPT/HCPCS: 36415; 80053; 83516; 83690; 84134; 84443; 85025; 85651; 86140; 87389

== ENCOUNTER → 2022-09-12 10:43 | Outpatient (CLI) | payer OTHER, MEDICAID, SELFPAY ==
[2019-05-31 09:16] VITALS: BMI 22.8
[2022-09-12 15:46] LABS: Campylobacter Not Detected (Not Detect); Clostridium difficile toxin AB Not Detected (Not Detect); Enteroaggregative E.coli Not Detected (Not Detect); Enteropathogenic E.coli Not Detected (Not Detect); Enterotoxigenic E.coli It/st Not Detected (Not Detect); Plesiomonsa shigelloides Not Detected (Not Detect); Salmonella Not Detected (Not Detect); Shiga-like toxin-prod E.coli Not Detected (Not Detect); Vibrio Not Detected (Not Detect); Vibrio cholerae Not Detected (Not Detect); Yersinia enterocolitica Not Detected (Not Detect)
[2022-09-12 15:47] LABS: Adenovirus F 40/41 Not Detected (Not Detect); Astrovirus Not Detected (Not Detect); Cryptosporidium Not Detected (Not Detect); Cyclospora cayetanensis Not Detected (Not Detect); Entamoeba histolytica Not Detected (Not Detect); Giardia lamblia Not Detected (Not Detect); Norovirus GI/GII Not Detected (Not Detect); Rotavirus A Not Detected (Not Detect); Sapovirus Not Detected (Not Detect); Shigella/Enteroinvasive E.coli Not Detected (Not Detect)
[2022-09-15 16:36] LABS: Calprotectin, Stool 88 ug/g (0-120)
== END ==
PROVIDERS: PCP Student in an Organized Health Care Education/Training Program; Referring Provider Student in an Organized Health Care Education/Training Program; Visit Provider Student in an Organized Health Care Education/Training Program
DX: K52.9 Noninfective gastroenteritis and colitis, unspecified (principal); R63.4 Abnormal weight loss
CPT/HCPCS: 83993; 87507

== ENCOUNTER → 2022-09-24 11:23 | Outpatient (CLI) | payer OTHER, MEDICAID, SELFPAY ==
[2019-05-31 09:16] VITALS: BMI 22.8
[2022-09-24 12:44] LABS: Bilirubin Urine UA 2+ (NEGATIVE); Glucose Urine UA NEGATIVE (Negative); Ketones Urine UA 1+ (NEGATIVE); Leukocyte Esterase Urine UA TRACE (NEGATIVE); Nitrite Urine UA NEGATIVE (Negative); Occult Blood Urine UA 1+ (Negative); Protein Urine UA 2+ (Negative); Specific Gravity Urine UA >=1.030 (1.000-1.035); Urobilinogen Urine UA 0.2 E.U./dL (0.2); pH Urine UA 5.5 (4.5-8.0)
[2022-09-24 12:52] LABS: Appearance Urine UA Clear; Color Urine UA Dark Yellow
[2022-09-24 13:12] LABS: Amorphous Sediment Urine 1+; Bacteria Urine Few (2-10); Culture Indicated Urine Specimen Cultured; Ictotest Urine Negative (Negative); Mucus Urine 3+ (Negative); RBC Urine 1-5/HPF (0-5/HPF); Squamous Epithelial Cell Urine 1-5 /HPF (0-5/HPF); WBC Urine 5-10/HPF (0-5/HPF)
== END ==
PROVIDERS: PCP Student in an Organized Health Care Education/Training Program; Referring Provider Student in an Organized Health Care Education/Training Program; Visit Provider Student in an Organized Health Care Education/Training Program
DX: R39.15 Urgency of urination (principal); R39.9 Unspecified symptoms and signs involving the genitourinary system
CPT/HCPCS: 81001; 87086

== ENCOUNTER → 2022-10-02 16:26 | Outpatient (CLI) | payer OTHER, MEDICAID, SELFPAY ==
[2019-05-31 09:16] VITALS: BMI 22.8
== END ==
PROVIDERS: PCP Student in an Organized Health Care Education/Training Program; Visit Provider Physician Assistant Medical
DX: N39.0 Urinary tract infection, site not specified (principal)
CPT/HCPCS: 81002; 87086

== ENCOUNTER 2022-10-06 13:34 | Emergency (ER) | payer OTHER, MEDICAID, SELFPAY ==
[2019-05-31 09:16] VITALS: BMI 22.8
[2022-10-06] VITALS (14 sets, daily range): BP systolic 113–138; BP diastolic 64–81; PULSE 56–82; RESP 11–20; TEMP 36.8; O2SAT 96–99; BMI 24.0
[2022-10-06 17:13] LABS: Hemoglobin 15.2 g/dL (13.5-17.5); Mean Corpuscular HGB Conc 34.7 % (30-36); Mean Corpuscular Hemoglobin 30.8 PG (26-34); Mean Corpuscular Volume 88.7 fL (80-100); Platelet Count 235 X10^3/uL (150-400); Red Blood Cell Count 4.95 X10^6/uL (4.5-5.9); Red Cell Distribution Width 14.7 % (11.6-14.8); White Blood Cell Count 8.6 X10^3/uL (4.5-11.0)
[2022-10-06 17:15] LABS: Add Manual Diff / Slide Review YES
[2022-10-06 17:31] LABS: Alanine Aminotransferase 20 IU/L (<50); Albumin 4.3 g/dL (3.5-5.0); Albumin Globulin Ratio 1.5 (1.0-2.8); Alkaline Phosphatase 58 U/L (38-126); Aspartate Aminotransferase 22 IU/L (17-59); BUN Creatinine Ratio 23.2 (6-22); Blood Urea Nitrogen 16 mg/dL (9-20); Calcium 8.8 mg/dL (8.4-10.2); Carbon Dioxide 24 mmol/L (22-32); Chloride 104 mmol/L (98-107); Estimated Glomerular Filt Rate > 60 mL/min (>60); Globulin 2.8 g/dL (1.7-4.1); Glucose 102 mg/dL (70-100); HEMOLYSIS 21 (0-50); Lipase 1174 U/L (23-300); Potassium 4.2 mmol/L (3.4-5.1); Sodium 137 mmol/L (137-145); Total Protein 7.1 g/dL (6.3-8.2)
[2022-10-06 17:32] LABS: Neutrophils Absolute Manual 3784 /uL (3000-5900); Total Cells Counted 100
[2022-10-06 17:33] LABS: RBC Morphology Normal Morphology
--- NOTE | 2022-10-06 18:18 | DI.CT.S_ITS ---
PROCEDURE: CT ABDOMEN PELVIS W CON INDICATIONS: Abd pain TECHNIQUE: After the administration of IV contrast, axial sections were acquired from the lung bases to the pubic symphysis. Coronal and sagittal reformats were performed. For radiation dose reduction, the following was used: automated exposure control, adjustment of mA and/or kV according to patient size. COMPARISON: [facility], CT, CT ABDOMEN PELVIS W CON, 09/14/2018, 14:40. FINDINGS: Image quality: Excellent. Lung bases: Unremarkable. Heart: No significant findings. ABDOMEN: Liver: Unremarkable. Gallbladder: Absent. Biliary ducts: CBD measures 0.8 cm. No pneumobilia. Pancreas: Pancreatic duct measures 0.4 cm, similar. Spleen: Unremarkable. Adrenal Glands: Unremarkable. Kidneys and Ureters: No hydronephrosis. Small renal cysts bilaterally. Stomach and Bowel: Stomach, small bowel loops, and colon are unremarkable. Diverticulosis. The appendix is not seen. Peritoneum: No abnormal intraperitoneal fluid. No free air. Ventral Wall: No hernia. Abdominal Nodes: No retroperitoneal or mesenteric adenopathy by size criteria. Vessels: Aorta and inferior vena cava are normal in size. PELVIS: Pelvic Organs: Unremarkable. Bladder: Unremarkable. Pelvic Nodes: No enlarged lymph nodes. Miscellaneous: No inguinal hernias are seen. Bones: Suspicious lesion. IMPRESSION: Source for abdominal pain is not identified. No free fluid. Dictated by: Mario De La Cruz M.D. on 10/06/2022 at 19:02 Approved by: Mario De La Cruz M.D. on 10/06/2022 at 19:07
--- NOTE | 2022-10-06 18:32 | DI.US.S_ITS ---
PROCEDURE: US SCROTUM INDICATIONS: PAIN LEFT > RIGHT TECHNIQUE: Real-time scanning was performed of the scrotum and testicles, with image documentation. Color and pulse Doppler interrogation was performed of both testicles. COMPARISON: [facility], , US SCROTUM, 11/06/2021, 9:12. FINDINGS: Right: Testicle is normal in size at 4.9 x 2.8 x 2.5 cm, and homogenous in echotexture. Epididymis is heterogeneous. Small right epididymal head cyst measuring at 0.4 cm. Chronic septated hydrocele with mobile debris. No varicoceles. Overlying scrotal skin is normal in thickness. Left: Testicle is normal in size at 4.7 x 3 x 2.1 cm, and homogeneous in echotexture. Epididymis is heterogeneous. Chronic septated hydrocele with debris. No varicoceles. Overlying scrotal skin is normal in thickness. Doppler: Blood flow in the testes appears symmetric. There is slight increased blood flow in the left epididymis compared to the right. IMPRESSION: 1. Slight increased blood flow in the left epididymis compared to the right. This could be seen in epididymitis. 2. Chronic bilateral septated hydroceles with debris. 3. No testicular mass. Dictated by: Mario De La Cruz M.D. on 10/06/2022 at 19:58 Approved by: Mario De La Cruz M.D. on 10/06/2022 at 20:03
[2022-10-06] MEDS: KETOROLAC 30 MG/ML VIAL 15 MG IV (18:44)
[2022-10-06] MEDS: cefTRIAXone 1,000 MG VIAL 500 MG IM (20:56)
[2022-10-06] MEDS: LIDOCAINE 2% INJ SDV 5 ML (20:56)
[2022-10-06] MEDS: AZITHROMYCIN 250 MG TABLET 1000 MG PO (20:56)
--- NOTE | 2022-10-07 08:56 | ED_ITS ---
HPI - Abdominal Pain <Belen Hernandez PA-C - Last Filed: 10/07/22 09:14> General Chief Complaint: Abdominal Pain Stated Complaint: Severe Stomach pain Time Seen by Provider: 10/06/22 17:59 Source: patient Mode of arrival: Ambulatory History of Present Illness HPI narrative: 47-year-old male with past medical history chronic diarrhea of unknown origin, internal hemorrhoids, anxiety, GERD, ADHD, depression, presents to the ED with 2-3 months of lower abdominal pain. Patient states that he has no appetite, is not eating well, has lost 20 lb over the last 2-3 months. Patient denies alcohol, marijuana, recreational drugs. Patient endorses a distant history of methamphetamine use. Patient denies fever, chills, chest pain, shortness of breath, nausea, vomiting, dysuria, flank pain, lightheadedness, dizziness, s yncope. Patient states that he is working with his primary care provider to diagnose the etiology of his abdominal pain. Patient has had a endoscopy and colonoscopy with no acute findings. Patient has not had a CT scan. Patient also complains of scrotal pain and pain in the groin area. Patient has had prior scrotal ultrasounds with some chronic changes, hydrocele, cysts. Related Data Previous Rx's Medication Instructions Recorded dextroamphetamine-amphetamine 10 10 mg PO DAILY #30 tabs 09/01/22 mg tablet (Adderall) dextroamphetamine-amphetamine ER 20 mg PO DAILY #60 caps 09/01/22 10 mg 24hr capsule,extend release oxycodone 10 mg tablet 10 mg PO BID PRN pain #60 tabs 10/07/22 oxycodone 15 mg tablet 15 mg PO BID PRN pain #60 tabs 10/07/22 Allergies Allergy/AdvReac Type Severity Reaction Status Date / Time esomeprazole AdvReac Severe Vomiting, Verified 10/07/22 08:25 rash famotidine AdvReac Severe vomiting Verified 10/07/22 08:25 escitalopram AdvReac Intermediate Abdominal Verified 10/07/22 08:25 Pain, anorexia buspirone AdvReac Mild Malaise Verified 10/07/22 08:25 Review of Systems <Belen Hernandez PA-C - Last Filed: 10/07/22 09:14> Review of Systems ROS Unobtainable: All systems reviewed & are unremarkable except as noted in HPI and below Constitutional Constitutional: Denies chills, Denies fatigue, Denies fever(s), Denies frequent falls, Denies lethargy and Denies weakness Eyes Eyes: Denies change in vision, Denies eye discharge, Denies irritation and Denies loss of vision ENT Ears, Nose, Mouth, and Throat: Denies change in voice, Denies dizziness, Denies neck pain, Denies sore throat and Denies throat swelling Cardiovascular Cardiovascular: Denies chest pain, Denies irregular heart rhythm, Denies lightheadedness, Denies palpitations, Denies dyspnea, Denies dyspnea on exertion and Denies orthopnea Respiratory Respiratory: Denies cough, Denies dyspnea, Denies dyspnea on exertion and Denies wheezing Gastrointestinal Gastrointestinal: Reports abdominal pain, Denies change in bowel habits, Reports diarrhea, Denies nausea and Denies vomiting Genitourinary Genitourinary: Denies hematuria, Denies flank pain, Reports scrotal swelling, Reports testicular pain, Denies urinary incontinence and Denies urinary urgency Musculoskeletal Musculoskeletal: Denies back pain, Denies muscle weakness, Denies neck pain, Denies numbness and Denies tingling Integumentary/Breasts Skin/Breast: Denies pruritus, Denies erythema, Denies rash and Denies wounds Neurologic Neurologic: Denies behavioral changes, Denies confusion, Denies dizziness, Denies frequent falls, Denies loss of vision, Denies numbness, Denies tingling and Denies weakness Psychiatric Psychiatric: Denies anxiety, Denies behavioral changes, Denies confusion, Denies depression, Denies homicidal ideation and Denies suicidal ideation Endocrine Endocrine: Denies fatigue, Denies flushing and Denies palpitations Hematologic/Lymphatic Hematologic/Lymphatic: Denies easy bruising Allergic/Immunologic Allergic/Immunologic: Denies urticaria, Denies throat swelling and Denies wheezing Patient History <Belen Hernandez PA-C - Last Filed: 10/07/22 09:14> Medical History ADD (attention deficit disorder) Chicken pox (1982) Chronic pain after traumatic injury Foot pain (2013) Hemorrhoids (2005) Intra-abdominal abscess Open fracture of right foot (2013) Wound of right foot (2013) Surgical History Anesthesia History of laparotomy Hx of appendectomy Hx of hemorrhoidectomy S/P laparoscopic cholecystectomy Status post appendectomy (1989) Status post hemorrhoidectomy (2005) Status post right foot surgery (11/2013) Status post right foot surgery (01/2014) Family History Mother Heart disease Hypertension High cholesterol Stroke Diabetes mellitus Father Lung cancer Social History marital status: unmarried,living together household members: significant other and children occupational status: employed Smoking Status: Former smoker alcohol intake: never substance use type: does not use Smoking Status: Former smoker alcohol intake frequency: other Substance Use Type: marijuana Exam <Belen Hernandez PA-C - Last Filed: 10/07/22 09:14> Narrative Exam Narrative: Const General: cooperative, healthy appearing and comfortable HENMT Head: normal to inspection Ears: hearing grossly normal bilaterally Nose: external nose normal Face and sinus: normal facial exam and sinuses nontender Mouth: oral mucosae normal Throat: posterior oropharynx normal Eyes General: appearance normal, both eyes and all related structures Neck Neck: normal visual inspection and no lymphadenopathy noted Resp Effort & Inspection: normal respiratory effort Auscultation: clear to auscultation bilaterally Cardio Rate: regular rate Rhythm: regular rhythm GI Abdomen is soft, nondistended. Tender to palpation in the lower quadrants Mild scrotal swelling left greater than right, tenderness to palpation Neuro General: patient alert, patient awake and patient oriented x3 Initial Vital Signs Initial Vital Signs: Vital Signs Temperature 98.2 F 10/06/22 14:52 Pulse Rate 82 10/06/22 14:52 Respiratory Rate 16 10/06/22 14:52 Blood Pressure 138/81 10/06/22 14:52 Pulse Oximetry 97 10/06/22 14:52 Oxygen Delivery Method 10/06/22 14:52 <Geoff Gomez DO - Last Filed: 10/07/22 15:44> Initial Vital Signs Initial Vital Signs: Vital Signs Temperature 98.2 F 10/06/22 14:52 Pulse Rate 82 10/06/22 14:52 Respiratory Rate 16 10/06/22 14:52 Blood Pressure 138/81 10/06/22 14:52 Pulse Oximetry 97 10/06/22 14:52 Oxygen Delivery Method 10/06/22 14:52 Course <Belen Hernandez PA-C - Last Filed: 10/07/22 09:14> Orders Ordered: Discontinued Medications Azithromycin (Azithromycin 250 Mg Tablet) 1,000 mg PO NOW ONE Stop: 10/06/22 20:28 Last Admin: 10/06/22 20:56 Dose: 1,000 mg Documented By: SB Ceftriaxone Sodium (Ceftriaxone 1,000 Mg Vial) 500 mg IM NOW ONE Stop: 10/06/22 20:28 Last Admin: 10/06/22 20:56 Dose: 500 mg Documented By: SB Ketorolac Tromethamine (Ketorolac 30 Mg/Ml Vial) 15 mg IV NOW ONE Stop: 10/06/22 18:20 Last Admin: 10/06/22 18:44 Dose: 15 mg Documented By: SB Lidocaine HCl (Lidocaine 1% (Pf) 5 Ml) 2.1 ml INJ NOW ONE Stop: 10/06/22 20:28 Last Admin: 10/06/22 20:56 Dose: Not Given Documented By: SB <Geoff Gomez DO - Last Filed: 10/07/22 15:44> Orders Ordered: Discontinued Medications Azithromycin (Azithromycin 250 Mg Tablet) 1,000 mg PO NOW ONE Stop: 10/06/22 20:28 Last Admin: 10/06/22 20:56 Dose: 1,000 mg Documented By: SB Ceftriaxone Sodium (Ceftriaxone 1,000 Mg Vial) 500 mg IM NOW ONE Stop: 10/06/22 20:28 Last Admin: 10/06/22 20:56 Dose: 500 mg Documented By: SB Ketorolac Tromethamine (Ketorolac 30 Mg/Ml Vial) 15 mg IV NOW ONE Stop: 10/06/22 18:20 Last Admin: 10/06/22 18:44 Dose: 15 mg Documented By: SB Lidocaine HCl (Lidocaine 1% (Pf) 5 Ml) 2.1 ml INJ NOW ONE Stop: 10/06/22 20:28 Last Admin: 10/06/22 20:56 Dose: Not Given Documented By: SB MDM - Abdominal Pain <Belen Hernandez PA-C - Last Filed: 10/07/22 09:14> Lab Data Result diagrams: 10/06/22 16:58 10/06/22 16:58 Labs: Lab Results 10/06/22 10/06/22 Range/Units 16:58 16:58 WBC 8.6 (4.5-11.0) X10^3/uL RBC 4.95 (4.5-5.9) X10^6/uL Hgb 15.2 (13.5-17.5) g/dL Hct 44.0 (41-53) % MCV 88.7 (80-100) fL MCH 30.8 (26-34) PG MCHC 34.7 (30-36) % RDW 14.7 (11.6-14.8) % Plt Count 235 (150-400) X10^3/uL Neut % (Auto) Not Reportable Lymph % (Auto) Not Reportable Burnett % (Auto) Not Reportable Eos % (Auto) Not Reportable Baso % (Auto) Not Reportable Lymph # (Auto) Not Reportable Burnett # (Auto) Not Reportable Baso # (Auto) Not Reportable Total Counted 100 Seg Neutrophils % 44.0 (38-70) % Lymphocytes % (Manual) 50.0 H (25-45) % Monocytes % (Manual) 4.0 (2-11) % Eosinophils % (Manual) 2.0 (2-4) % Neutrophils # (Manual) 3784 (3576-6797) /uL RBC Morphology Normal morphology Sodium 137 (137-145) mmol/L Potassium 4.2 (3.4-5.1) mmol/L Chloride 104 (98-107) mmol/L Carbon Dioxide 24 (22-32) mmol/L BUN 16 (9-20) mg/dL Creatinine 0.69 (0.66-1.25) mg/dL Estimated GFR > 60 (>60) mL/min BUN/Creatinine Ratio 23.2 H (6-22) Glucose 102 H (70-100) mg/dL Calcium 8.8 (8.4-10.2) mg/dL Total Bilirubin 1.0 (0.2-1.3) mg/dL AST 22 (17-59) IU/L ALT 20 (<50) IU/L Alkaline Phosphatase 58 (38-126) U/L Total Protein 7.1 (6.3-8.2) g/dL Albumin 4.3 (3.5-5.0) g/dL Globulin 2.8 (1.7-4.1) g/dL Albumin/Globulin Ratio 1.5 (1.0-2.8) Lipase 1174 H (23-300) U/L Point of care testing: Urine Dip Bedside Urine Glucose Negative Bedside Urine Bilirubin - Negative Bedside Urine Ketone - Negative Urine Specific [place] 1.015 Bedside Urine Occult Blood - Negative Bedside Urine pH 6.0 Bedside Urine Protein - Negative Bedside Urine Urobilinogen - Negative Bedside Urine Nitrite - Negative Bedside Urine Leukocytes - Negative Esterase Imaging Data CT scan - abdomen/pelvis: Radiologist's Impression: Patient: Noble Johnson MR#: [id number] : 1975 Acct:[id number] Age/Sex: 47 / M Date of Service: 10/06/22 Loc: ED Accession Number: [id number] ?? Procedure: CT abdomen pelvis w con Ordering Provider: Belen Hernandez P.A-C ADDENDUMThis report includes an Addendum and supersedes previous reports for this exam. ? ? ? PROCEDURE:? CT ABDOMEN PELVIS W CON ? INDICATIONS:? Abd pain ? TECHNIQUE:? After the administration of IV contrast, axial sections were acquired from the lung bases to the pubic symphysis.? Coronal and sagittal reformats were performed.? For radiation dose reduction, the following was used:? automated exposure control, adjustment of mA and/or kV according to patient size. ? COMPARISON:? [facility], CT, CT ABDOMEN PELVIS W CON, 09/14/2018, 14:40. ? FINDINGS:? Image quality:? Excellent.? ? Lung bases:? Unremarkable.? ? Heart:? No significant findings. ? ? ABDOMEN: Liver:? Unremarkable.? ? Gallbladder:? Absent.? Biliary ducts:? CBD measures 0.8 cm.? No pneumobilia. Pancreas:? Pancreatic duct measures 0.4 cm, similar. Spleen:? Unremarkable.? ? Adrenal Glands:? Unremarkable.? ? Kidneys and Ureters:? No hydronephrosis.? Small renal cysts bilaterally. ? Stomach and Bowel:? Stomach, small bowel loops, and colon are unremarkable.? Diverticulosis.? The appendix is not seen. Peritoneum:? No abnormal intraperitoneal fluid.? No free air.? ? Ventral Wall: ? No hernia.? Abdominal Nodes:? No retroperitoneal or mesenteric adenopathy by size criteria.? Vessels:? Aorta and inferior vena cava are normal in size.? ? PELVIS: Pelvic Organs:? Unremarkable.? ? Bladder:? Unremarkable.? ? Pelvic Nodes: No enlarged lymph nodes.? Miscellaneous: No inguinal hernias are seen. ? ? ? Bones:? Suspicious lesion. ? ? IMPRESSION:? Source for abdominal pain is not identified.? No free fluid. ? ? Dictated by: Mario De La Cruz M.D. on 10/06/2022 at 19:02 ? ? Approved by: Mario De La Cruz M.D. on 10/06/2022 at 19:07 ? ? ? ADDENDUM: Dictation error. ? Bones:? No suspicious lesion. ? Discussed with David AMAYA. ? ? Dictated by: Mario De La Cruz M.D. on 10/06/2022 at 19:30 ? ? Approved by: Mario De La Cruz M.D. on 10/06/2022 at 19:31 ? Addendum Dictated By: Mario De La Cruz MD Addendum Signed By: Addendum Cosigned By: DD/ TD/TT: 10/06/22 PROCEDURE:? CT ABDOMEN PELVIS W CON ? INDICATIONS:? Abd pain ? TECHNIQUE:? After the administration of IV contrast, axial sections were acquired from the lung bases to the pubic symphysis.? Coronal and sagittal reformats were performed.? For radiation dose reduction, the following was used:? automated exposure control, adjustment of mA and/or kV according to patient size. ? COMPARISON:? [facility], CT, CT ABDOMEN PELVIS W CON, 09/14/2018, 14:40. ? FINDINGS:? Image quality:? Excellent.? ? Lung bases:? Unremarkable.? ? Heart:? No significant findings. ? ? ABDOMEN: Liver:? Unremarkable.? ? Gallbladder:? Absent.? Biliary ducts:? CBD measures 0.8 cm.? No pneumobilia. Pancreas:? Pancreatic duct measures 0.4 cm, similar. Spleen:? Unremarkable.? ? Adrenal Glands:? Unremarkable.? ? Kidneys and Ureters:? No hydronephrosis.? Small renal cysts bilaterally. ? Stomach and Bowel:? Stomach, small bowel loops, and colon are unremarkable.? Diverticulosis.? The appendix is not seen. Peritoneum:? No abnormal intraperitoneal fluid.? No free air.? ? Ventral Wall: ? No hernia.? Abdominal Nodes:? No retroperitoneal or mesenteric adenopathy by size criteria.? Vessels:? Aorta and inferior vena cava are normal in size.? ? PELVIS: Pelvic Organs:? Unremarkable.? ? Bladder:? Unremarkable.? ? Pelvic Nodes: No enlarged lymph nodes.? Miscellaneous: No inguinal hernias are seen. ? ? ? Bones:? Suspicious lesion. ? ? IMPRESSION:? Source for abdominal pain is not identified.? No free fluid. ? ? Dictated by: Mario De La Cruz M.D. on 10/06/2022 at 19:02 ? ? Approved by: Mario De La Cruz M.D. on 10/06/2022 at 19:07 ? US Scrotum: Radiologist's Impression: PROCEDURE:? US SCROTUM ? INDICATIONS:? PAIN LEFT > RIGHT ? TECHNIQUE:? Real-time scanning was performed of the scrotum and testicles, with image documentation.? Color and pulse Doppler interrogation was performed of both testicles.? ? COMPARISON:? [facility], US SCROTUM, 11/06/2021, 9:12. ? FINDINGS:? ? Right:? Testicle is normal in size at 4.9 x 2.8 x 2.5 cm, and homogenous in ech otexture.? Epididymis is heterogeneous.? Small right epididymal head cyst measuring at 0.4 cm.? Chronic septated hydrocele with mobile debris.? No varicoceles.? Overlying scrotal skin is normal in thickness.? ? Left:? Testicle is normal in size at 4.7 x 3 x 2.1 cm, and homogeneous in echotexture.? Epididymis is heterogeneous.? Chronic septated hydrocele with debris.? No varicoceles.? Overlying scrotal skin is normal in thickness.? ? Doppler:? Blood flow in the testes appears symmetric.? There is slight increased blood flow in the left epididymis compared to the right.? ? IMPRESSION:? 1. Slight increased blood flow in the left epididymis compared to the right.? This could be seen in epididymitis. ? 2. Chronic bilateral septated hydroceles with debris. ? 3. No testicular mass. ? ? Dictated by: Mario De La Cruz M.D. on 10/06/2022 at 19:58 ? ? Approved by: Mario De La Cruz M.D. on 10/06/2022 at 20:03 ? [facility] Narrative Medical decision making narrative: 47-year-old male with past medical history chronic diarrhea of unknown origin, internal hemorrhoids, anxiety, GERD, ADHD, depression, presents to the ED with 2-3 months of lower abdominal pain. Concern for hernia versus epididymitis versus testicular torsion versus orchitis versus diverticulitis versus appendicitis versus UTI versus pyelonephritis versus pancreatitis versus other abdominal etiology versus other. Will obtain labs, lipase, CT abdomen pelvis, ultrasound of the scrotum. Will give ketorolac for pain. Lipase elevated to 1200. All other labs within normal limits. CT abdomen pelvis without acute findings. Ultrasound of the scrotum shows possible epidi dymitis. Will treat with antibiotics. Unclear etiology for the elevated lipase. Patient agrees to follow-up with his GI for monitoring and further evaluation. ED return precautions were discussed with patient. Patient verbalized understanding. <Geoff Gomez DO - Last Filed: 10/07/22 15:44> Lab Data Labs: Lab Results 10/06/22 10/06/22 Range/Units 16:58 16:58 WBC 8.6 (4.5-11.0) X10^3/uL RBC 4.95 (4.5-5.9) X10^6/uL Hgb 15.2 (13.5-17.5) g/dL Hct 44.0 (41-53) % MCV 88.7 (80-100) fL MCH 30.8 (26-34) PG MCHC 34.7 (30-36) % RDW 14.7 (11.6-14.8) % Plt Count 235 (150-400) X10^3/uL Neut % (Auto) Not Reportable Lymph % (Auto) Not Reportable Burnett % (Auto) Not Reportable Eos % (Auto) Not Reportable Baso % (Auto) Not Reportable Lymph # (Auto) Not Reportable [place] # (Auto) Not Reportable Baso # (Auto) Not Reportable Total Counted 100 Seg Neutrophils % 44.0 (38-70) % Lymphocytes % (Manual) 50.0 H (25-45) % Monocytes % (Manual) 4.0 (2-11) % Eosinophils % (Manual) 2.0 (2-4) % Neutrophils # (Manual) 3784 (9169-2446) /uL RBC Morphology Normal morphology Sodium 137 (137-145) mmol/L Potassium 4.2 (3.4-5.1) mmol/L Chloride 104 (98-107) mmol/L Carbon Dioxide 24 (22-32) mmol/L BUN 16 (9-20) mg/dL Creatinine 0.69 (0.66-1.25) mg/dL Estimated GFR > 60 (>60) mL/min BUN/Creatinine Ratio 23.2 H (6-22) Glucose 102 H (70-100) mg/dL Calcium 8.8 (8.4-10.2) mg/dL Total Bilirubin 1.0 (0.2-1.3) mg/dL AST 22 (17-59) IU/L ALT 20 (<50) IU/L Alkaline Phosphatase 58 (38-126) U/L Total Protein 7.1 (6.3-8.2) g/dL Albumin 4.3 (3.5-5.0) g/dL Globulin 2.8 (1.7-4.1) g/dL Albumin/Globulin Ratio 1.5 (1.0-2.8) Lipase 1174 H (23-300) U/L Point of care testing: Urine Dip Bedside Urine Glucose Negative Bedside Urine Bilirubin - Negative Bedside Urine Ketone - Negative Urine Specific [place] 1.015 Bedside Urine Occult Blood - Negative Bedside Urine pH 6.0 Bedside Urine Protein - Negative Bedside Urine Urobilinogen - Negative Bedside Urine Nitrite - Negative Bedside Urine Leukocytes - Negative Esterase Discharge Plan Departure Patient Disposition: Home Clinical Impression: Epididymitis Instructions: DI for Epididymitis Activity Restrictions/Additional Instructions: You were evaluated in the ED today for abdominal pain, scrotal pain. Your CT was normal. Your lipase was elevated, however there were no CT or other findings to explain why the lipase is elevated. You will need further GI follow-up to monitor this. The ultrasound of your scrotum showed epididymitis which is an infection for which you are going treated with antibiotics. You were given a dose of ceftriaxone and azithromycin in the ED for it. Please return to the ED if his symptoms worsen, you develop fever, chills. Prescriptions: No Action dextroamphetamine-amphetamine [Adderall] 10 mg tablet 10 mg PO DAILY Qty: 30 0RF dextroamphetamine-amphetamine 10 mg capsule,extended release 24hr 20 mg PO DAILY Qty: 60 0RF oxycodone 10 mg tablet 10 mg PO BID PRN (Reason: pain) Qty: 60 0RF oxycodone 15 mg tablet 15 mg PO BID PRN (Reason: pain) Qty: 60 0RF Referrals: Fili Soares MD [Primary Care Provider] - Visit Report Forms: Patient Portal/API <Geoff Gomez DO - Last Filed: 10/07/22 15:44> Cosign ED Attending Cosignature Attestation: I was immediately available in the department for consultation. This documentation has been reviewed and I agree with assessment and plan. Supervised by Geoff Gomez DO
== END 2022-10-06 21:13 | disposition home or self-care (01) ==
PROVIDERS: Emergency Medicine; Emergency Provider Student in an Organized Health Care Education/Training Program; PCP Student in an Organized Health Care Education/Training Program
DX: N45.1 Epididymitis (principal); R10.9 Unspecified abdominal pain
CPT/HCPCS: 36415; 74177; 76870; 80053; 81003; 83690; 85007; 85025; 93005; 96372; 96374; 99284; 99285; J0696; J1885; Q9967

== ENCOUNTER 2022-10-07 14:56 | Emergency (ER) | payer OTHER, MEDICAID, SELFPAY ==
[2019-05-31 09:16] VITALS: BMI 22.8
[2022-10-07] VITALS (8 sets, daily range): BP systolic 112–134; BP diastolic 66–96; PULSE 67–116; RESP 15–24; TEMP 36.8; O2SAT 96–98; BMI 21.6
--- NOTE | 2022-10-07 18:08 | DI.MRI.S_ITS ---
PROCEDURE: MR LUMBAR SPINE WO CON INDICATIONS: back pain, urinary retention TECHNIQUE: Noncontrast sagittal T1 spin echo and T2 fast echo, sagittal STIR, and T2 fast spin echo through the lumbar spine. In cases with scoliosis, additional coronal T2 fast spin echo may be performed. COMPARISON: None. FINDINGS: Image quality: Motion is present sequences limiting areas detail Alignment and Curvature: There is normal bony alignment. Bone Marrow: Marrow is of normal overall signal. No acute vertebral body compression fractures. Spinal Cord: Conus medullaris terminates at the L1-2 level. Visualized cord demonstrates normal signal and size. Paraspinous Soft Tissues: No paravertebral masses. Simple right renal cyst. T12-L1: No disc bulge, spinal stenosis or foraminal narrowing. L1-L2: No disc bulge, spinal stenosis or foraminal narrowing. L2-L3: Minimal disc bulge without spinal stenosis or foraminal narrowing. L3-L4: Mild disc bulge with canal narrowing. Minimal bilateral narrowing. L4-L5: Minimal disc bulge with canal narrowing. Mild foraminal narrowing. L5-S1: No disc bulge, spinal stenosis or foraminal narrowing. IMPRESSION: Scattered levels of early degenerative change. Dictated by: Richa Lucas M.D. on 10/07/2022 at 20:39 Approved by: Richa Lucas M.D. on 10/07/2022 at 20:41
--- NOTE | 2022-10-07 18:22 | ED.BACK ---
HPI - Back Pain/Injury General Chief Complaint: Back Pain/Injury Stated Complaint: back pain is worse Time Seen by Provider: 10/07/22 18:07 History of Present Illness HPI Narrative: 47-year-old male with past medical history chronic diarrhea of unknown origin, internal hemorrhoids, anxiety, GERD, ADHD, depression, presents to the ED with a chief complaint of ongoing low back pain that is worse in his right lower back and wraps around into his groin. He states it is a sharp and stabbing pain that has been present for many months. He states it is worse when he moves and improves with rest. He denies any loss of control of bowel or bladder. She denies any lower extremity numbness, tingling or weakness. He is had no trauma or injury. He denies any IV drug use or anticoagulation. He was seen yesterday and had extensive workup including labs, ultrasound of his scrotum which showed possible epididymitis Related Data Previous Rx's Medication Instructions Recorded dextroamphetamine-amphetamine 10 10 mg PO DAILY #30 tabs 09/01/22 mg tablet (Adderall) dextroamphetamine-amphetamine ER 20 mg PO DAILY #60 caps 09/01/22 10 mg 24hr capsule,extend release gabapentin 300 mg capsule 300 mg PO BEDTIME #14 caps 10/07/22 ketorolac 10 mg tablet 10 mg PO Q6H PRN pain #14 tabs 10/07/22 methylprednisolone 4 mg tablets in See Rx Instructions PO .COMPLEX 10/07/22 a dose pack (Medrol (Favian)) #21 ea oxycodone 10 mg tablet 10 mg PO BID PRN pain #60 tabs 10/07/22 oxycodone 15 mg tablet 15 mg PO BID PRN pain #60 tabs 10/07/22 Allergies Allergy/AdvReac Type Severity Reaction Status Date / Time esomeprazole AdvReac Severe Vomiting, Verified 10/07/22 08:25 rash famotidine AdvReac Severe vomiting Verified 10/07/22 08:25 escitalopram AdvReac Intermediate Abdominal Verified 10/07/22 08:25 Pain, anorexia buspirone AdvReac Mild Malaise Verified 10/07/22 08:25 Review of Systems Review of Systems Narrative: GENERAL: Denies chills, fatigue, malaise, fever, sweats. HEENT: Denies sinus pain, ear pain, sore throat, difficulty swallowing, dizziness. RESPIRATORY: Denies dyspnea, cough, wheezing, hemoptysis, sputum. CARDIOVASCULAR: Denies chest pain, palpitations, orthopnea, edema, GASTROINTESTINAL: Denies nausea, vomiting, abdominal pain, diarrhea, constipation, melena. : Denies dysuria, frequency, incontinence, hematuria, urinary retention. MUSCULOSKELETAL: See HPI SKIN: Denies rash, skin lesions, or other NEUROLOGIC: Denies weakness, headache, numbness, change in speech, confusion, seizures, incoordination. PSYCHIATRIC: No concerning psychosocial issues. 12 point review of systems is negative except for those stated above Patient History Medical History ADD (attention deficit disorder) Chicken pox (1982) Chronic pain after traumatic injury Foot pain (2013) Hemorrhoids (2005) Intra-abdominal abscess Open fracture of right foot (2013) Wound of right foot (2013) Surgical History Anesthesia History of laparotomy Hx of appendectomy Hx of hemorrhoidectomy S/P laparoscopic cholecystectomy Status post appendectomy (1989) Status post hemorrhoidectomy (2005) Status post right foot surgery (11/2013) Status post right foot surgery (01/2014) Family History Mother Heart disease Hypertension High cholesterol Stroke Diabetes mellitus Father Lung cancer Social History marital status: unmarried,living together household members: significant other and children occupational status: employed Smoking Status: Former smoker alcohol intake: never substance use type: does not use Smoking Status: Former smoker alcohol intake frequency: other Substance Use Type: marijuana Exam Narrative Exam Narrative: GENERAL: [47] year old patient appears stated age. Well-developed patient, in mild distress. HEAD: Atraumatic. Normocephalic. EYES: Pupils equal round and reactive. Extraocular motions intact. No scleral icterus. No injection or drainage. ENT: Nose without bleeding, purulent drainage. Throat without erythema, tonsillar hypertrophy or exudate. Airway patent. NECK: Trachea midline. Non tender CARDIOVASCULAR: Regular rate and rhythm without murmurs, gallops, or rubs. RESPIRATORY: Clear to auscultation. Breath sounds equal bilaterally. No wheezes, rales, or rhonchi. GASTROINTESTINAL: Abdomen soft, non-tender, nondistended. EXTREMITIES: No edema or joint tenderness. BACK: dandy tender but free of any obvious external abnormalities. Patient exam notes decreased range of motion and muscle spasm, but no CVA tenderness, or vertebral point tenderness. There are no symptoms of cauda equina such as saddle anesthesia, and decreased reflexes, decreased sensation or strength. NEURO: AOx3. SKIN: No rash or erythema of visible areas Initial Vital Signs Initial Vital Signs: Vital Signs Temperature 98.3 F 10/07/22 15:59 Pulse Rate 116 H 10/07/22 15:59 Respiratory Rate 24 10/07/22 15:59 Blood Pressure 134/96 H 10/07/22 15:59 Pulse Oximetry 98 10/07/22 15:59 Oxygen Delivery Method 10/07/22 15:59 Course Orders Ordered: Discontinued Medications Dexamethasone (Dexamethasone 10 Mg/Ml Vial) 10 mg IV NOW ONE Stop: 10/07/22 21:17 Last Admin: 10/07/22 21:21 Dose: 10 mg Documented By: RB Gabapentin (Gabapentin 300 Mg Capsule) 300 mg PO NOW ONE Stop: 10/07/22 21:17 Last Admin: 10/07/22 21:20 Dose: 300 mg Documented By: RB Ketorolac Tromethamine (Ketorolac 30 Mg/Ml Vial) 15 mg IV NOW ONE Stop: 10/07/22 21:17 Last Admin: 10/07/22 21:20 Dose: 15 mg Documented By: RB Lorazepam (Lorazepam 2 Mg/Ml Inj) 1 mg IV NOW ONE Stop: 10/07/22 19:38 Last Admin: 10/07/22 20:03 Dose: 1 mg Documented By: RB Reevaluation(s) Reevaluation #1: Patient with significant improvement after above-stated therapies Vital Signs Vital signs: Vital Signs - 8 hr 10/07/22 21:36 Pulse Rate 68 Respiratory Rate 16 Blood Pressure 126/82 Pulse Oximetry 97 MDM - Back Pain/Injury Lab Data Result diagrams: 10/07/22 18:30 10/07/22 18:30 Labs: Lab Results 10/07/22 10/07/22 10/07/22 Range/Units 18:13 18:30 18:30 WBC 10.4 (4.5-11.0) X10^3/uL RBC 5.06 (4.5-5.9) X10^6/uL Hgb 15.5 (13.5-17.5) g/dL Hct 44.9 (41-53) % MCV 88.7 (80-100) fL MCH 30.5 (26-34) PG MCHC 34.4 (30-36) % RDW 14.8 (11.6-14.8) % Plt Count 247 (150-400) X10^3/uL Neut % (Auto) 61.5 (50-75) % Lymph % (Auto) 30.2 (25-40) % Wake % (Auto) 5.6 (3-14) % Eos % (Auto) 1.8 L (2-4) % Baso % (Auto) 0.9 (0-2) % Neut # (Auto) 6400 (8778-8117) /uL Lymph # (Auto) 3100 (3942-8874) /uL Wake # (Auto) 600 (0-900) /uL Eos # (Auto) 200 (0-450) /uL Baso # (Auto) 100 (0-100) /uL ESR 1 (0-15) MM/HR Sodium 138 (137-145) mmol/L Potassium 3.9 (3.4-5.1) mmol/L Chloride 103 (98-107) mmol/L Carbon Dioxide 25 (22-32) mmol/L BUN 17 (9-20) mg/dL Creatinine 0.76 (0.66-1.25) mg/dL Estimated GFR > 60 (>60) mL/min BUN/Creatinine Ratio 22.4 H (6-22) Glucose 95 (70-100) mg/dL Lactate (0.7-2.1) mmol/L Calcium 9.2 (8.4-10.2) mg/dL Magnesium 2.3 (1.6-2.3) mg/dL Total Bilirubin 1.0 (0.2-1.3) mg/dL AST 26 (17-59) IU/L ALT 23 (<50) IU/L Alkaline Phosphatase 56 (38-126) U/L C-Reactive Protein < 0.5 (<1.0) mg/dL Total Protein 7.5 (6.3-8.2) g/dL Albumin 4.6 (3.5-5.0) g/dL Globulin 2.9 (1.7-4.1) g/dL Albumin/Globulin Ratio 1.6 (1.0-2.8) Lipase 100 D (23-300) U/L Urine Color Yellow Urine Appearance Clear Urine pH 5.5 (4.5-8.0) Ur Specific [place] 1.025 (1.000-1.035) Urine Protein Negative (Negative) Urine Glucose (UA) Negative (Negative) g/dL Urine Ketones Negative (NEGATIVE) Urine Occult Blood Negative (Negative) Urine Nitrate Negative (Negative) Urine Bilirubin Negative (NEGATIVE) Urine Urobilinogen 0.2 (0.2) E.U./dL Ur Leukocyte Esterase Negative (NEGATIVE) Urine RBC None seen (0-5/HPF) Urine WBC None seen (0-5/HPF) Calcium Oxalate Crystal Occasional H Urine Bacteria None seen (None) Ur Culture Indicated? Cult not indicated 10/07/22 Range/Units 18:30 WBC (4.5-11.0) X10^3/uL RBC (4.5-5.9) X10^6/uL Hgb (13.5-17.5) g/dL Hct (41-53) % MCV (80-100) fL MCH (26-34) PG MCHC (30-36) % RDW (11.6-14.8) % Plt Count (150-400) X10^3/uL Neut % (Auto) (50-75) % Lymph % (Auto) (25-40) % Wake % (Auto) (3-14) % Eos % (Auto) (2-4) % Baso % (Auto) (0-2) % Neut # (Auto) (3459-5835) /uL Lymph # (Auto) (6561-2436) /uL Wake # (Auto) (0-900) /uL Eos # (Auto) (0-450) /uL Baso # (Auto) (0-100) /uL ESR (0-15) MM/HR Sodium (137-145) mmol/L Potassium (3.4-5.1) mmol/L Chloride (98-107) mmol/L Carbon Dioxide (22-32) mmol/L BUN (9-20) mg/dL Creatinine (0.66-1.25) mg/dL Estimated GFR (>60) mL/min BUN/Creatinine Ratio (6-22) Glucose (70-100) mg/dL Lactate 0.7 (0.7-2.1) mmol/L Calcium (8.4-10.2) mg/dL Magnesium (1.6-2.3) mg/dL Total Bilirubin (0.2-1.3) mg/dL AST (17-59) IU/L ALT (<50) IU/L Alkaline Phosphatase (38-126) U/L C-Reactive Protein (<1.0) mg/dL Total Protein (6.3-8.2) g/dL Albumin (3.5-5.0) g/dL Globulin (1.7-4.1) g/dL Albumin/Globulin Ratio (1.0-2.8) Lipase (23-300) U/L Urine Color Urine Appearance Urine pH (4.5-8.0) Ur Specific [place] (1.000-1.035) Urine Protein (Negative) Urine Glucose (UA) (Negative) g/dL Urine Ketones (NEGATIVE) Urine Occult Blood (Negative) Urine Nitrate (Negative) Urine Bilirubin (NEGATIVE) Urine Urobilinogen (0.2) E.U./dL Ur Leukocyte Esterase (NEGATIVE) Urine RBC (0-5/HPF) Urine WBC (0-5/HPF) Calcium Oxalate Crystal Urine Bacteria (None) Ur Culture Indicated? Urine Dip Bedside Urine Glucose Negative Bedside Urine Bilirubin - Negative Bedside Urine Ketone - Negative Urine Specific [place] 1.030 Bedside Urine Occult Blood - Negative Bedside Urine pH 6.0 Bedside Urine Protein - Negative Bedside Urine Urobilinogen - Negative Bedside Urine Nitrite - Negative Bedside Urine Leukocytes - Negative Esterase Imaging Data Lumbar MRI: Radiologist's Impression: Noble Johnson??47??M??1975 ? Allergy/Adv: esomeprazole, famotidine, escitalopram, buspirone (More??) Close Lumbar Spine MRI (Signed) Richa Lucas - 10/07/22 [place] Ultrasound (Signed) CallMario - 10/06/22 Abdomen/Pelvis CT (Addendum) CallMario - 10/06/22 Telemetry Strips 02/13/22 Telemetry Strips 02/13/22 Tibia/Fibula X-Ray (Signed) Richa Lucas - 12/30/21 [place] Ultrasound (Signed) Felipe Mckoy - 11/06/21 Upper GI Series (Signed) Manuel Reynolds - 12/31/20 Cervical Spine MRI (Signed) MillerDavy - 12/17/20 [place] Ultrasound (Signed) Deven Morgan - 12/03/20 Chest/Abdomen X-ray (Signed) Mary Ann Nelson - 08/02/19 Chest CTA (Signed) Felton Medellin - 09/17/18 Chest X-Ray (Signed) Kevin Lakhani - 09/17/18 Abdomen/Pelvis CT (Signed) Jb Varghese - 09/14/18 Abdomen X-Ray (Signed) Tin Ponce - 08/30/18 Catheter Placement (Addendum) Tin Ponce - 08/20/18 Telemetry Strips 08/19/18 Abdomen/Pelvis CT (Signed) Kevin Lakhani - 08/19/18 Gall Bladder Scan Nuclear Medicine (Signed) Manuel Reynolds - 08/12/18 Bladder Scan 08/11/18 Outside EKG 08/11/18 Abdomen Ultrasound (Signed) Selin Mack - 07/06/18 Launch?[place] [address] Magnetic Resonance Report Signed Patient: Noble Johnson MR#: [id number] : 1975 Acct:[id number] Age/Sex: 47 / M Date of Service: 10/07/22 Loc: ED Accession Number: [id number] ?? Procedure: MR lumbar spine wo con Ordering Provider: Geoff Gomez D.O. PROCEDURE:? MR LUMBAR SPINE WO CON ? INDICATIONS:? back pain, urinary retention ? TECHNIQUE:? Noncontrast sagittal T1 spin echo and T2 fast echo, sagittal STIR, and T2 fast spin echo through the lumbar spine.? In cases with scoliosis, additional coronal T2 fast spin echo may be performed.? ? COMPARISON:? None. ? FINDINGS:? Image quality:? Motion is present sequences limiting areas detail ? Alignment and Curvature:? There is normal bony alignment.? ? Bone Marrow:? Marrow is of normal overall signal.? No acute vertebral body compression fractures.? ? Spinal Cord:? Conus medullaris terminates at the L1-2 level.? Visualized cord demonstrates normal signal and size.? ? Paraspinous Soft Tissues:? No paravertebral masses.? Simple right renal cyst. ? T12-L1:? No disc bulge, spinal stenosis or foraminal narrowing. ? L1-L2:? No disc bulge, spinal stenosis or foraminal narrowing. ? L2-L3:? Minimal disc bulge without spinal stenosis or foraminal narrowing. ? L3-L4:? Mild disc bulge with canal narrowing.? Minimal bilateral narrowing. ? L4-L5:? Minimal disc bulge with canal narrowing.? Mild foraminal narrowing. ? L5-S1:? No disc bulge, spinal stenosis or foraminal narrowing. ? ? IMPRESSION:? ? Scattered levels of early degenerative change. ? Dictated by: Richa Lucas M.D. on 10/07/2022 at 20:39 ? ? Approved by: Richa Lucas M.D. on 10/07/2022 at 20:41 ? Discharge Plan Departure Patient Disposition: Home Clinical Impression: Back pain, Acute back pain with radiculopathy Instructions: DI for Low Back Pain Activity Restrictions/Additional Instructions: *You have been diagnosed with [low back pain, possibly with radiculopathy. As we discussed your history and physical exam as well as labs and imaging are very reassuring and there is no evidence of any neurosurgical emergency that would require a specific or immediate intervention] *What to do: *Please continue to take your regular medications as directed. [ x] New medication prescriptions sent to your pharmacy: [ [facility] in [place]] [ ] New medication written as a paper prescription [ ] No new medications given *Please follow up with your primary care provider in 2-3 days, call for an appointment. Let them know you were seen in the Emergency Department and that we ask that you be seen in follow up. We will electronically transmit a record of today's note if your PCP is in our system *If you do not have a primary care provider please contact the [facility] Resource line at [phone]. They will ask some questions about your medical history and help get you set up with a doctor in the community. *Return to Emergency Department if you should have any new, worsening or concerning symptoms, such as [fever greater than 101 F, shaking chills, worsening pain, persistent vomiting or other bothersome symptoms] Prescriptions: New ketorolac 10 mg tablet 10 mg PO Q6H PRN (Reason: pain) Qty: 14 0RF gabapentin 300 mg capsule 300 mg PO BEDTIME Qty: 14 0RF methylprednisolone [Medrol (Favian)] 4 mg tablets,dose pack See Rx Instructions .ROUTE .COMPLEX Qty: 21 0RF Rx Instructions: orally per package directions No Action dextroamphetamine-amphetamine [Adderall] 10 mg tablet 10 mg PO DAILY Qty: 30 0RF dextroamphetamine-amphetamine 10 mg capsule,extended release 24hr 20 mg PO DAILY Qty: 60 0RF oxycodone 10 mg tablet 10 mg PO BID PRN (Reason: pain) Qty: 60 0RF oxycodone 15 mg tablet 15 mg PO BID PRN (Reason: pain) Qty: 60 0RF Referrals: Fili Soares MD [Primary Care Provider] - Visit Report Forms: Patient Portal/API
--- NOTE | 2022-10-07 18:34 | PC.NURSE ---
I went to place an IV in patient per provider order. I placed an IV in his under forearm and had immediate blood return but the patient demanded that the IV be removed. I did so and then placed an IV in his right ac which was a larger vein. There was also immediate blood return and the patient began using a clinched fist and hitting the bed up and down. He screamed obscenities at me. Stating that I was a dumb fucking nurse and that I get a different nurse in here. I asked him to please not talk to me that way and I would go get another nurse. I approached the charge nurse and they went in the place the IV.
[2022-10-07 18:46] LABS: Add Manual Diff / Slide Review NO; Basophils Absolute Auto 100 /uL (0-100); Basophils Percent Auto 0.9 % (0-2); Eosinophils Absolute Auto 200 /uL (0-450); Eosinophils Percent Auto 1.8 % (2-4); Hematocrit 44.9 % (41-53); Hemoglobin 15.5 g/dL (13.5-17.5); Lymphocytes Absolute Auto 3100 /uL (1100-4500); Lymphocytes Percent Auto 30.2 % (25-40); Mean Corpuscular HGB Conc 34.4 % (30-36); Mean Corpuscular Hemoglobin 30.5 PG (26-34); Mean Corpuscular Volume 88.7 fL (80-100); Monocytes Absolute Auto 600 /uL (0-900); Monocytes Percent Auto 5.6 % (3-14); Neutrophils Absolute Auto 6400 /uL (1500-7000); Neutrophils Percent Auto 61.5 % (50-75); Platelet Count 247 X10^3/uL (150-400); Red Blood Cell Count 5.06 X10^6/uL (4.5-5.9); Red Cell Distribution Width 14.8 % (11.6-14.8); White Blood Cell Count 10.4 X10^3/uL (4.5-11.0)
[2022-10-07 19:01] LABS: Lactate (Lactic Acid) 0.7 mmol/L (0.7-2.1)
[2022-10-07 19:05] LABS: Alanine Aminotransferase 23 IU/L (<50); Albumin 4.6 g/dL (3.5-5.0); Albumin Globulin Ratio 1.6 (1.0-2.8); Alkaline Phosphatase 56 U/L (38-126); Aspartate Aminotransferase 26 IU/L (17-59); BUN Creatinine Ratio 22.4 (6-22); Blood Urea Nitrogen 17 mg/dL (9-20); C-Reactive Protein Quant < 0.5 mg/dL (<1.0); Calcium 9.2 mg/dL (8.4-10.2); Carbon Dioxide 25 mmol/L (22-32); Chloride 103 mmol/L (98-107); Estimated Glomerular Filt Rate > 60 mL/min (>60); Globulin 2.9 g/dL (1.7-4.1); Glucose 95 mg/dL (70-100); HEMOLYSIS < 15 (0-50); Lipase 100 U/L (23-300); Magnesium 2.3 mg/dL (1.6-2.3); Potassium 3.9 mmol/L (3.4-5.1); Sodium 138 mmol/L (137-145); Total Protein 7.5 g/dL (6.3-8.2)
[2022-10-07 19:31] LABS: Appearance Urine UA CLEAR; Bilirubin Urine UA NEGATIVE (NEGATIVE); Color Urine UA YELLOW; Glucose Urine UA NEGATIVE (Negative); Ketones Urine UA NEGATIVE (NEGATIVE); Leukocyte Esterase Urine UA NEGATIVE (NEGATIVE); Nitrite Urine UA NEGATIVE (Negative); Occult Blood Urine UA NEGATIVE (Negative); Protein Urine UA NEGATIVE (Negative); Specific Gravity Urine UA 1.025 (1.000-1.035); Urobilinogen Urine UA 0.2 E.U./dL (0.2); pH Urine UA 5.5 (4.5-8.0)
[2022-10-07 19:35] LABS: Erythrocyte Sedimentation Rate 1 MM/HR (0-15)
[2022-10-07 19:49] LABS: Bacteria Urine None Seen; Calcium Oxalate Crystals Urine Occasional; Culture Indicated Urine Cult Not Indicated; RBC Urine None Seen (0-5/HPF); WBC Urine None Seen (0-5/HPF)
[2022-10-07] MEDS: LORazepam 2 MG/ML INJ 1 MG IV (20:03)
--- NOTE | 2022-10-07 20:32 | PC.NURSE ---
Pt requesting something for pain,Dr Gomez aware
[2022-10-07] MEDS: GABAPENTIN 300 MG CAPSULE PO (21:20)
[2022-10-07] MEDS: KETOROLAC 30 MG/ML VIAL 15 MG IV (21:20)
[2022-10-07] MEDS: DEXAMETHASONE 10 MG/ML VIAL IV (21:21)
== END 2022-10-07 22:25 | disposition home or self-care (01) ==
PROVIDERS: Emergency Provider Emergency Medicine; PCP Student in an Organized Health Care Education/Training Program
DX: M54.16 Radiculopathy, lumbar region (principal)
CPT/HCPCS: 36415; 51798; 72148; 80053; 81001; 81003; 83605; 83690; 83735; 85025; 85651; 86140; 87040; 96374; 96375; 99284; J1100; J1885; J2060

== ENCOUNTER → 2022-11-26 08:08 | Outpatient (CLI) | payer OTHER, MEDICAID, SELFPAY ==
[2019-05-31 09:16] VITALS: BMI 22.8
--- NOTE | 2022-11-26 08:09 | DI.CT.S_ITS ---
PROCEDURE: CT CHEST WO CON INDICATIONS: pulmonary nodules TECHNIQUE: Noncontrast 2.0-2.5 mm thick sections acquired from the pulmonary apices to the posterior costophrenic angles. 7 mm thick axial MIP and 5 mm coronal and sagittal reformats were then acquired. A low radiation dose technique was utilized. COMPARISON: [facility], CT, CT ABDOMEN PELVIS W CON, 10/06/2022, 18:23. [facility], CT, CT ANGIO CHEST PE PROTOCOL, 09/17/2018, 11:04. FINDINGS: Image quality: Diagnostic, given the low radiation dose technique. Lungs and pleura: Tiny calcified granuloma are noted in anterior and medial aspect of right middle lobe and anterolateral aspect of right lower lobe near right lung base measures up to 4 mm in size series 3, image 275. Additional ill-defined area of scarring/atelectasis in anterior aspect of right lung base is also seen and measures up to 4 mm in size series 3, image 294. Findings are not significantly changed from 10/06/2022 study. Additional ill-defined scattered scarring and atelectasis in posterior and lateral periphery of bilateral lung bases also seen. No solid appearing pulmonary nodule. No pleural effusion or pneumothorax. Central and peripheral airway is patent. Mediastinum: Heart size is normal. No pericardial effusion. No mediastinal adenopathy by size criteria. Thoracic aorta and central pulmonary arteries are normal in size. Esophagus is normal in caliber. No hiatal hernia. Bones and chest wall: No suspicious bony lesions. No vertebral body compression fractures. No axillary or supraclavicular adenopathy by size criteria. Thyroid gland is within normal limits. Abdomen: Visualized upper abdomen solid organs and bowel loops appear normal in the absence of contrast. Gallbladder is surgically absent. IMPRESSION: 1. Tiny calcified granuloma with adjacent scarring/atelectasis in right middle lobe and right lower lobe as described above unchanged from 10/06/2022 study. No suspicious pulmonary nodule or mass is seen. Additional scattered atelectasis in posterior and lateral aspect of bilateral lung bases. No pleural effusion or pneumothorax. Airway is patent. 2. No mediastinal or hilar lymphadenopathy by size criteria. Fleischner Society criteria for SOLID lung nodule followup. Nodule size (mm)Low-risk patientHigh-risk patient<6 (single or multiple)No routine followup.Optional CT at 12 months. 6-8 (single or multiple)CT at 6-12 months, then optional CT at 18-24 mo.CT at 6-12 months, then CT at 18-24 months. >8 (single)CT at 3 months, PET-CT, or biopsy. Same as for low-risk pts. >8 (multiple)CT at 3-6 months, then optional CT at 18-24 mo.CT at 3-6 months, then CT at 18-24 months. Fleischner Society criteria for SUB-SOLID lung nodule followup. Solitary pure ground-glass nodules<6 mm (ground glass or part solid)No followup needed. 6 mm or larger (ground glass)CT at 6-12 months to confirm persistence, then CT every 2 years until 5 years.6 mm or larger (part solid)CT at 3-6 months to confirm persistence, then annual CT until 5 years if unchanged and solid component remains <6 mm. Multiple sub-solid nodules<6 mmCT at 3-6 months, then CT consider at 2 & 4 years for high risk patients. [address] at 3-6 months. Subsequent management based on most suspicious lesions. Recommendations do not apply to lung cancer screening, patients with immunosuppression, or patients with known primary cancer. Dictated by: Felipe Mckoy M.D. on 11/26/2022 at 11:29 Approved by: Felipe Mckoy M.D. on 11/26/2022 at 12:07
--- NOTE | 2022-11-26 08:09 | DI.CT.S_ITS ---
PROCEDURE: CT ABDOMEN PELVIS W CON INDICATIONS: Low back pain, pancreatitis, flank pain TECHNIQUE: After the administration of oral and IV contrast, axial sections were acquired from the lung bases to the pubic symphysis. Coronal and sagittal reformats were performed. For radiation dose reduction, the following was used: automated exposure control, adjustment of mA and/or kV according to patient size. COMPARISON: [facility], CT, CT ABDOMEN PELVIS W CON, 10/06/2022, 18:23. FINDINGS: Image quality: Excellent. Lung bases: A few scattered scarring/atelectasis in periphery of bilateral lung bases are seen. Heart: No significant findings. ABDOMEN: Liver: Unremarkable. Gallbladder: Gallbladder is surgically absent. Biliary ducts: Common bile duct measures up to 9 mm in diameter and is within normal limits for post cholecystectomy patient. Mild intrahepatic biliary ductal dilatation also unchanged from prior study. Pancreas: Prominence of pancreatic duct is seen measures up to 4 mm in diameter. No discrete pancreatic mass or peripancreatic fat stranding. No peripancreatic fluid collection. Spleen: Unremarkable. Adrenal Glands: Unremarkable. Kidneys and Ureters: Small bilateral renal cysts are again seen measures up to 2.6 x 2.4 cm in size in midpole right kidney unchanged from prior study. No hydronephrosis or hydroureter. Stomach and Bowel: There is fecal stasis throughout the colon. No gastric or small bowel wall thickening. Appendix is visualized and is within normal limits. Mild sigmoid diverticulosis with questionable proximal to mid sigmoid colon wall thickening in left lower quadrant abdomen. Very mild pericolonic fat stranding is also seen. No abscess collection. Peritoneum: No abnormal intraperitoneal fluid. No free air. Ventral Wall: No hernia. Abdominal Nodes: No retroperitoneal or mesenteric adenopathy by size criteria. Vessels: Aorta and inferior vena cava are normal in size. PELVIS: Pelvic Organs: Unremarkable. Bladder: Unremarkable. Pelvic Nodes: No enlarged lymph nodes. Miscellaneous: No inguinal hernias are seen. Bones: There is no suspicious bony lesion. No acute vertebral body compression fracture. IMPRESSION: 1. Mild constipation. Questionable proximal to mid sigmoid colon wall thickening which may be due to under distension or peristalsis. Low-grade colitis versus diverticulitis cannot be excluded. No abscess collection. No free fluid or free air. Normal appendix. 2. Stable mild prominence of pancreatic duct near pancreatic head region. Stable mild prominence of intrahepatic biliary ducts and common bile duct which is within normal limits for post cholecystectomy patient's. No peripancreatic inflammatory changes. No discrete pancreatic mass. 3. Other findings are all unchanged from prior study. Dictated by: Felipe Mckoy M.D. on 11/26/2022 at 11:24 Approved by: Felipe Mckoy M.D. on 11/26/2022 at 11:29
== END ==
PROVIDERS: PCP Student in an Organized Health Care Education/Training Program; Referring Provider Student in an Organized Health Care Education/Training Program; Visit Provider Student in an Organized Health Care Education/Training Program
DX: M54.50 Low back pain, unspecified (principal); R91.8 Other nonspecific abnormal finding of lung field; K85.90 Acute pancreatitis without necrosis or infection, unspecified; R10.9 Unspecified abdominal pain; K59.00 Constipation, unspecified; N28.1 Cyst of kidney, acquired; K57.30 Diverticulosis of large intestine without perforation or abscess without bleeding; Z90.49 Acquired absence of other specified parts of digestive tract
CPT/HCPCS: 71250; 74177

== ENCOUNTER → 2023-06-23 09:36 | Outpatient (CLI) | payer OTHER, MEDICAID, SELFPAY ==
[2019-05-31 09:16] VITALS: BMI 22.8
[2023-06-23 10:47] LABS: Add Manual Diff / Slide Review NO; Basophils Absolute Auto 0 /uL (0-100); Basophils Percent Auto 0.6 % (0-2); Eosinophils Absolute Auto 100 /uL (0-450); Eosinophils Percent Auto 1.6 % (2-4); Hematocrit 44.2 % (41-53); Hemoglobin 15.3 g/dL (13.5-17.5); Lymphocytes Absolute Auto 1800 /uL (1100-4500); Lymphocytes Percent Auto 32.2 % (25-40); Mean Corpuscular HGB Conc 34.5 % (30-36); Mean Corpuscular Hemoglobin 30.7 PG (26-34); Mean Corpuscular Volume 88.9 fL (80-100); Monocytes Absolute Auto 300 /uL (0-900); Monocytes Percent Auto 6.1 % (3-14); Neutrophils Absolute Auto 3300 /uL (1500-7000); Neutrophils Percent Auto 59.5 % (50-75); Platelet Count 258 X10^3/uL (150-400); Red Blood Cell Count 4.98 X10^6/uL (4.5-5.9); Red Cell Distribution Width 14.4 % (11.6-14.8); White Blood Cell Count 5.5 X10^3/uL (4.5-11.0)
[2023-06-23 11:09] LABS: Alanine Aminotransferase 27 IU/L (<50); Albumin 4.5 g/dL (3.5-5.0); Albumin Globulin Ratio 1.8 (1.0-2.8); Alkaline Phosphatase 52 U/L (38-126); Aspartate Aminotransferase 25 IU/L (17-59); BUN Creatinine Ratio 17.9 (6-22); Bilirubin Total 0.7 mg/dL (0.2-1.3); Blood Urea Nitrogen 14 mg/dL (9-20); Calcium 9.4 mg/dL (8.4-10.2); Carbon Dioxide 27 mmol/L (22-32); Chloride 103 mmol/L (98-107); Estimated Glomerular Filt Rate > 60 mL/min (>60); Globulin 2.5 g/dL (1.7-4.1); Glucose 116 mg/dL (70-100); HEMOLYSIS < 15 (0-50); Lipase 135 U/L (23-300); Potassium 4.7 mmol/L (3.4-5.1); Sodium 137 mmol/L (137-145)
[2023-06-23 13:19] LABS: Ur Creatinine Normal (Normal); Ur Specific Gravity Normal (Normal); Urine Amphetamines Positive (Negative); Urine Tetrahydrocannabinol Positive (Negative); Urine pH Normal (Normal)
[2023-06-23 13:20] LABS: UR Morphine/Opiate cutoff 300 Negative (Negative); Urine Barbiturates Negative (Negative); Urine Benzodiazepines Negative (Negative); Urine Cocaine Negative (Negative); Urine MDMA Negative (Negative); Urine Methadone Negative (Negative); Urine Methamphetamines Negative (Negative); Urine Oxycodone Positive (Negative); Urine Phencyclidine Negative (Negative); Urine Tricyclic Antidepressant Negative (Negative)
== END ==
PROVIDERS: PCP Pediatrics; Referring Provider Pediatrics; Visit Provider Pediatrics
DX: F11.20 Opioid dependence, uncomplicated (principal); F32.9 Major depressive disorder, single episode, unspecified; F41.9 Anxiety disorder, unspecified; F90.8 Attention-deficit hyperactivity disorder, other type; K21.9 Gastro-esophageal reflux disease without esophagitis; S99.929A Unspecified injury of unspecified foot, initial encounter; Z87.19 Personal history of other diseases of the digestive system
CPT/HCPCS: 36415; 80053; 80305; 83690; 85025

== ENCOUNTER → 2024-04-06 12:52 | Outpatient (CLI) | payer OTHER, SELFPAY ==
[2019-05-31 09:16] VITALS: BMI 22.8
[2024-04-06 13:32] LABS: Appearance Urine UA CLEAR; Bilirubin Urine UA NEGATIVE (NEGATIVE); Color Urine UA YELLOW; Glucose Urine UA NEGATIVE (Negative); Ketones Urine UA NEGATIVE (NEGATIVE); Leukocyte Esterase Urine UA NEGATIVE (NEGATIVE); Nitrite Urine UA NEGATIVE (Negative); Occult Blood Urine UA NEGATIVE (Negative); Protein Urine UA NEGATIVE (Negative); Urobilinogen Urine UA 0.2 E.U./dL (0.2); pH Urine UA 6.5 (4.5-8.0)
[2024-04-06 13:40] LABS: Bacteria Urine Occasional (0-1); Culture Indicated Urine Cult Not Indicated; Mucus Urine 1+ (Negative); RBC Urine None Seen (0-5/HPF); Squamous Epithelial Cell Urine None Seen (0-5/HPF); Urine Volume 10mL (spun); WBC Urine None Seen (0-5/HPF)
== END ==
PROVIDERS: PCP Family Medicine; Visit Provider Family Medicine
DX: B37.49 Other urogenital candidiasis (principal)
CPT/HCPCS: 81001

== ENCOUNTER → 2024-07-05 09:21 | Outpatient (CLI) | payer OTHER, SELFPAY ==
[2019-05-31 09:16] VITALS: BMI 22.8
[2024-07-05 10:21] LABS: Add Manual Diff / Slide Review NO; Basophils Absolute Auto 100 /uL (0-100); Eosinophils Absolute Auto 100 /uL (0-450); Eosinophils Percent Auto 1.5 % (2-4); Hematocrit 45.8 % (41-53); Hemoglobin 15.6 g/dL (13.5-17.5); Lymphocytes Absolute Auto 1800 /uL (1100-4500); Lymphocytes Percent Auto 30.1 % (25-40); Mean Corpuscular HGB Conc 34.1 % (30-36); Mean Corpuscular Hemoglobin 30.5 PG (26-34); Mean Corpuscular Volume 89.6 fL (80-100); Monocytes Absolute Auto 600 /uL (0-900); Monocytes Percent Auto 9.4 % (3-14); Neutrophils Absolute Auto 3500 /uL (1500-7000); Platelet Count 261 X10^3/uL (150-400); Red Cell Distribution Width 14.8 % (11.6-14.8)
[2024-07-05 10:55] LABS: Hemoglobin A1C% w Est Avg Glu 5.6 % (4.0-6.0)
[2024-07-05 10:59] LABS: Alanine Aminotransferase 28 IU/L (<50); Albumin 4.2 g/dL (3.5-5.0); Albumin Globulin Ratio 1.9 (1.0-2.8); Alkaline Phosphatase 57 U/L (38-126); Aspartate Aminotransferase 33 IU/L (17-59); BUN Creatinine Ratio 13.8 (6-22); Bilirubin Total 0.6 mg/dL (0.2-1.3); Blood Urea Nitrogen 11 mg/dL (9-20); Calcium 9.5 mg/dL (8.4-10.2); Carbon Dioxide 26 mmol/L (22-32); Chloride 106 mmol/L (98-107); Cholesterol 181 mg/dL (140-199); Estimated Glomerular Filt Rate > 60 mL/min (>60); Globulin 2.2 g/dL (1.7-4.1); Glucose 121 mg/dL (70-100); HDL Cholesterol 59 mg/dL (40-60); HEMOLYSIS < 15 (0-50); LDL Cholesterol Calculated 110 mg/dL (<100); Potassium 4.7 mmol/L (3.4-5.1); Sodium 138 mmol/L (137-145); Total Protein 6.4 g/dL (6.3-8.2); Triglycerides 61 mg/dL (35-150)
== END ==
PROVIDERS: PCP Family Medicine; Referring Provider Family Medicine; Visit Provider Family Medicine
DX: Z00.00 Encounter for general adult medical examination without abnormal findings (principal); Z13.1 Encounter for screening for diabetes mellitus; R73.03 Prediabetes; E78.00 Pure hypercholesterolemia, unspecified
CPT/HCPCS: 36415; 80053; 80061; 83036; 85025